=== PATIENT | male | born 1970 | race Caucasian/White ===

== ENCOUNTER 2017-11-29 11:17 | Emergency (ER) | payer MEDICARE, OTHER ==
[2017-11-29 12:03] VITALS: BP 143/84; PULSE 102; RESP 20; TEMP 99.6
[2017-11-29] MEDS ORDERED: KETOROLAC 60 MG/2 ML VIAL IM STA (12:44)
[2017-11-29] MEDS ORDERED: methylPREDNISolone SOD SUCCI 125 MG/2 ML VIAL IM STA (12:44)
[2017-11-29] MEDS ORDERED: ORPHENADRINE 30 MG/ML 2 ML VIAL IM STA (12:44)
--- NOTE | 2017-11-29 12:52 | ED ---
General Adult HPI - General Chief complaint: Back Pain/Injury Stated complaint: Fall Time Seen by Provider: 11/29/17 12:26 Source: patient, RN notes reviewed Mode of arrival: ambulatory Limitations: no limitations - History of Present Illness Initial comments: 47-year-old male presents to the emergency department with a chief complaint of right-sided back pain. He slipped and fell on the steps last night. He states he landed onto his lower back. He states he's having pain to the right side. He states that he has some nausea due to the increased pain. He states he did not hit his head. He states he did not pass out. It was a simple slip and fall. Patient was concerned due to his continued discomfort so he thought that he should be evaluated. He denies any other symptoms at this time or any other injury.Patient denies any recent fever, chills, shortness of breath, chest pain , abdominal pain, nausea vomiting, numbness or tingling, dysuria or hematuria, constipation or diarrhea, headaches or visual changes, or any other current symptoms. - Related Data Home Medications Medication Instructions Recorded Confirmed Donepezil [Aricept] 10 mg PO HS 04/21/14 05/23/15 Propranolol HCl [Inderal Xl] 80 mg PO DAILY 05/22/15 05/23/15 Previous Rx's Medication Instructions Recorded Hydrocodone/Acetaminophen [[place] 1 each PO Q4HR PRN #15 tab 05/22/15 5-325] Aspirin 81 mg PO DAILY #30 chew 05/31/15 Atorvastatin [Lipitor] 10 mg PO HS #7 tab 05/31/15 Budesonide [Pulmicort] 0.5 mg INHALATION RT-BID #1 nebu 05/31/15 Citalopram Hydrobromide [CeleXA] 20 mg PO DAILY #7 tab 05/31/15 Fenofibrate [Lofibra] 160 mg PO HS #7 tab 05/31/15 HYDROcodone/APAP 5-325MG [[place] 1 each PO Q8HR PRN #7 tab 05/31/15 5-325] Lisinopril [Zestril] 10 mg PO DAILY #7 tab 05/31/15 Propranolol LA [Inderal LA] 80 mg PO DAILY #7 cap.sa.24h 05/31/15 Thiamine [Vitamin B-1] 100 mg PO DAILY@1200 #30 tab 05/31/15 clonazePAM [KlonoPIN] 0.5 mg PO BID@0800,1300 #14 tab 05/31/15 clonazePAM [KlonoPIN] 1 mg PO HS #7 tab 05/31/15 hydrOXYzine PAMOATE [Vistaril] 25 mg PO HS #7 cap 05/31/15 Ibuprofen [Motrin] 600 mg PO Q6HR PRN #20 tab 11/29/17 Orphenadrine [Norflex] 100 mg PO Q12H #10 tablet.er 11/29/17 predniSONE 50 mg PO DAILY #5 tab 11/29/17 Allergies Allergy/AdvReac Type Severity Reaction Status Date / Time erythromycin base Allergy dizzy,passed Verified 11/29/17 12:01 [Erythromycin Base] out Penicillins Allergy dizzy,passed Verified 11/29/17 12:01 out Review of Systems ROS Statement: Those systems with pertinent positive or pertinent negative responses have been documented in the HPI. ROS Other: All systems not noted in ROS Statement are negative. Past Medical History Past Medical History: COPD, Dementia, Hyperlipidemia, Memory Impairment, Respiratory Disorder, Sleep Apnea/CPAP/BIPAP, Syncope, Vascular Disorder Additional Past Medical History / Comment(s): chronic migraines, just dx. w/ early alzheimer's, dizzy spells, concussion 05/20/15 from fall, obstructive sleep apnea with CPAP, Wernicke encephalopathy, hyperlipidemia, COPD. History of Any Multi-Drug Resistant Organisms: None Reported Past Surgical History: Tonsillectomy Additional Past Surgical History / Comment(s): Left elbow open reduction internal fixation, hemorrhoidectomy Past Anesthesia/Blood Transfusion Reactions: No Reported Reaction Past Psychological History: Anxiety, Depression Smoking Status: Current every day smoker Past Alcohol Use History: None Reported Past Drug Use History: None Reported - Past Family History Father Additional Family Medical History / Comment(s): Father at age 70 from lung ca, with history of dementia Mother Additional Family Medical History / Comment(s): Mother is age 70 with some health issues that he does not know Brother(s) Additional Family Medical History / Comment(s): Patient has 2 brothers that are healthy. He does not have any sisters. He has 3 children that are healthy. General Exam Limitations: no limitations General appearance: alert, in no apparent distress Neck exam: Present: normal inspection. Absent: tenderness, meningismus, lymphadenopathy Respiratory exam: Present: normal lung sounds bilaterally. Absent: respiratory distress, wheezes, rales, rhonchi, stridor Cardiovascular Exam: Present: regular rate, normal rhythm, normal heart sounds. Absent: systolic murmur, diastolic murmur, rubs, gallop, clicks GI/Abdominal exam: Present: soft, normal bowel sounds. Absent: distended, tenderness, guarding, rebound, rigid Back exam: Present: normal inspection, full ROM, tenderness (To the right paraspinal region), paraspinal tenderness (Right sided), other (Positive straight leg raise on the right). Absent: vertebral tenderness, rash noted Neurological exam: Present: alert, oriented X3 Psychiatric exam: Present: normal affect, normal mood Skin exam: Present: warm, dry, intact, normal color. Absent: rash Course Vital Signs 11/29/17 12:01 Temperature 99.6 F Pulse Rate 102 H Respiratory 20 Rate Blood Pressure 143/84 O2 Sat by Pulse 96 Oximetry Medical Decision Making - Medical Decision Making 47-year-old male presents for slip and fall with right-sided back pain. At this time patient appears to have a lumbar contusion along with a sciatica. At this time we will start the patient on muscle relaxers and anti-inflammatories and steroids for home. We did discuss shelter. We did discuss return parameters we discussed follow-up and all questions. Patient family stated they understood and management this plan. All questions have been answered. They will be discharged. - Radiology Data Radiology results: report reviewed, image reviewed Disposition Clinical Impression: Lumbar strain, Sciatica of right side Disposition: HOME SELF-CARE Condition: Stable Instructions: Acute Low Back Pain (ED), Lower Back Exercises (ED) Additional Instructions: Please use medication as discussed. Please follow up with family doctor if symptoms have not improved over the next two days. Please return to the emergency room if your symptoms increase or worsen or for any other concerns. Prescriptions: Ibuprofen [Motrin] 600 mg PO Q6HR PRN #20 tab PRN Reason: Pain Orphenadrine [Norflex] 100 mg PO Q12H #10 tablet.er predniSONE 50 mg PO DAILY #5 tab Referrals: Francis Turner MD [Primary Care Provider] - 1-2 days Time of Disposition: 13:27
--- NOTE | 2017-11-29 13:04 | XR ---
EXAM TYPE: LUMBAR SPINE X RAY SERIES COMPARISON: NONE HISTORY: Pain TECHNIQUE: 4 views are submitted. FINDINGS: Alignment is anatomic. The pedicles are intact. The transverse processes are intact. There is no s pondylolysis or spondylolisthesis. Hypertrophic change of the spine noted. IMPRESSION: 1. No acute process.
== END 2017-11-29 13:30 | disposition home or self-care (01) ==
LOC: EC 11:17
DX: S39.012A Strain of muscle, fascia and tendon of lower back, initial encounter (principal); M54.31 Sciatica, right side; F02.80 Dementia in other diseases classified elsewhere, unspecified severity, without behavioral disturbance, psychotic disturbance, mood disturbance, and anxiety; G30.9 Alzheimer's disease, unspecified; G47.33 Obstructive sleep apnea (adult) (pediatric); F17.200 Nicotine dependence, unspecified, uncomplicated; Z79.899 Other long term (current) drug therapy; Z88.0 Allergy status to penicillin; Z88.1 Allergy status to other antibiotic agents; W10.9XXA Fall (on) (from) unspecified stairs and steps, initial encounter
CPT/HCPCS: 72100; 99283; 96372 ×3; J2360; J2930; J1885

== ENCOUNTER → 2018-07-15 | Outpatient (CLI) | payer MEDICARE, OTHER ==
--- NOTE | 2018-07-16 02:35 | MR ---
EXAMINATION TYPE: MR brain wo/w con DATE OF EXAM: 07/15/2018 COMPARISON: 12/17/2012 HISTORY: Headaches, blurred vision, diagnosed lymphoma 2 weeks ago TECHNIQUE: Multiplanar, multisequence images of the brain and brainstem is performed without and with IV contras t, utilizing 11.5 mL intravenous Gadavist . FINDINGS: There is some mucosal thickening in the ethmoid and frontal sinuses. There is mild mucosal thickening also maxillary sinuses. Ventricles of normal size. There is no mass effect nor midline shift. There is no sign of intracranial hemorrhage. There is 3 mm focus of increased signal in the white matter le ft anterior temporal lobe. Corpus callosum appears normal. Brainstem appears normal. There is no evid ence of cortical infarct. There is no evidence of cerebral edema. Sella turcica appears normal. There is normal contrast opacification of the venous sinuses. Optic chiasm appears normal. There is no timoteo dence of a sellar mass. There is no evidence of orbital mass. The contrast images show no pathologic enhancement. IMPRESSION: There is mild sinusitis. Otherwise negative MR scan of the brain. Tiny focus of increased signal left temporal lobe white matter of doubtful significance. This is new compared to old exam. S inusitis unchanged.
== END | disposition home or self-care (01) ==
LOC: RADMRIMAIN 20:32
PROVIDERS: ATTEND Psychiatry & Neurology Neurology
DX: H53.8 Other visual disturbances (principal); R51 Headache; Z88.0 Allergy status to penicillin; Z88.1 Allergy status to other antibiotic agents
CPT/HCPCS: 82565; 84520; 70553; 36415; A9585

== ENCOUNTER → 2018-07-31 | Outpatient (CLI) | payer MEDICARE, OTHER ==
[2018-07-31 16:24] LABS: Blood Urea Nitrogen 15 mg/dL (9-20)
--- NOTE | 2018-08-01 09:01 | CT ---
EXAMINATION TYPE: CT ChestAbdPelvis w con DATE OF EXAM: 07/31/2018 COMPARISON: 04/06/2013 HISTORY: lymphoma CT DLP: 2356.6 mGycm CONTRAST: CT scan of the chest, abdomen and pelvis is performed with Oral Contrast and with IV Contrast, patien t injected with 100 mL of Isovue 300. CT Chest: LUNGS: The lungs are clear and free of infiltrate or atelectasis. No pulmonary nodule or mass is det ected. No pleural effusion or CT evidence of interstitial lung disease. MEDIASTINUM: Thoracic aorta is of normal caliber. The heart is not enlarged. No evidence for media stinal mass or adenopathy. HILAR STRUCTURES: No evidence for mass. No hilar adenopathy is appreciated. OTHER: No significant abnormality. CONTRAST CT ABDOMEN AND PELVIS FINDINGS: LIVER/GB: No calcified gallstones. No space occupying hepatic lesion. Biliary tree is of normal ca liber. PANCREAS: No inflammation. No distinct mass. SPLEEN: No splenic enlargement. No lesion seen. ADRENALS: No nodule. No thickening. KIDNEYS/BLADDER: No hydronephrosis. No nephrolithiasis. No disctinct renal mass. BOWEL: Normal appendix. Normal bowel caliber. No inflammation. GENITAL ORGANS: No gross abnormality. LYMPH NODES: No greater than 1cm abdominal or pelvic lymph nodes are appreciated. AORTA: No significant abnormality. OSSEOUS STRUCTURES: No significant abnormality is seen. OTHER: No significant additional abnormality is seen. IMPRESSION: 1. No evidence for adenopathy throughout the chest abdomen or pelvis. 2. Mild hepatic steatosis.
== END ==
LOC: RADCTMAIN 15:40
PROVIDERS: ATTEND Internal Medicine Hematology & Oncology
DX: C85.80 Other specified types of non-Hodgkin lymphoma, unspecified site (principal); K76.0 Fatty (change of) liver, not elsewhere classified
CPT/HCPCS: 82565; 84520; 71260; 74177; 36415; Q9967

== ENCOUNTER → 2019-08-11 | Outpatient (CLI) | payer BC, OTHER ==
[2019-08-11 13:21] LABS: HCT 49.6 % (39.0-53.0); HGB 17.7 gm/dL (13.0-17.5); MCH 31.7 pg (25.0-35.0); MCHC 35.6 g/dL (31.0-37.0); MCV 89.1 fL (80.0-100.0); Mean Platelet Volume 7.3; Platelet Count 247 k/uL (150-450); RBC 5.57 m/uL (4.30-5.90); RDW 12.8 % (11.5-15.5); Reticulocyte % 2.9 % (0.5-2.0); WBC 10.1 k/uL (3.8-10.6)
[2019-08-11 18:33] LABS: % Iron Saturation 30.95 (15.00-50.00)
[2019-08-11 18:42] LABS: T4, Free (Free Thyroxine) 1.1 ng/dL (0.80-1.80)
[2019-08-11 18:44] LABS: Ferritin 145.7 ng/mL (22.0-322.0)
[2019-08-11 19:15] LABS: Folate, Serum 10.9 ng/mL
[2019-08-13 06:45] LABS: Vit B1(Thiamine) 103 ug/L (38-122)
== END | disposition home or self-care (01) ==
LOC: LABWHC1 11:57
PROVIDERS: ATTEND Psychiatry & Neurology Pain Medicine
DX: D64.9 Anemia, unspecified (principal)
CPT/HCPCS: 36415; 82607; 82668; 82728; 82746; 83540; 83550; 84207; 84425; 84439; 84443; 84466; 84481; 84591; 85027; 85045

== ENCOUNTER → 2020-12-02 | Outpatient (CLI) | payer MEDICARE, OTHER ==
[2020-12-02 11:58] LABS: African American GFR (CKD) >90 (>60 ml/min/1.73 sqM); Blood Urea Nitrogen 17 mg/dL (9-20); Non-African American GFR(CKD) 89 (>60 ml/min/1.73 sqM)
--- NOTE | 2020-12-02 13:10 | CT ---
EXAMINATION TYPE: CT ChestAbdPelvis w con DATE OF EXAM: 12/02/2020 COMPARISON: Prior CT July 31, 2018 and older studies HISTORY: Lymphoma, observations for mets. Skin lymphoma per patient. CT DLP: 2656.4 mGycm. Automated Exposure Control for Dose Reduction was Utilized. CONTRAST: CT scan of the thorax, abdomen and pelvis is performed with IV Contrast, patient injected with 100 mL of Isovue M300. FINDINGS: LUNGS: The lungs are grossly clear, there is no concerning parenchymal mass or nodule identified. T here is no pleural effusion or pneumothorax seen. The tracheobronchial tree is patent. MEDIASTINUM: There are no greater than 1 cm hilar or mediastinal lymph nodes. No cardiomegaly or pe ricardial effusion is seen. Mild coronary artery calcification redemonstrated. LIVER/GB: Liver diffusely low dense consistent with diffuse fatty infiltration. No significant change from prior. PANCREAS: No significant abnormality is seen. SPLEEN: No significant abnormality is seen. ADRENALS: No significant abnormality is seen. KIDNEYS: No significant abnormality is seen. BOWEL: Oral contrast reaches level of rectum. No suspicious small or large bowel dilatation. GENITAL ORGANS: No gross abnormality seen. LYMPH NODES: No greater than 1cm abdominal or pelvic lymph nodes are appreciated. OSSEOUS STRUCTURES: Mild facet arthropathy lower lumbar levels. OTHER: No significant additional abnormality is seen. IMPRESSION: No suspicious new or enlarging mass or adenopathy identified to suggest active lymphoma r ecurrence.
== END ==
LOC: RADCTMAIN 10:52
PROVIDERS: ATTEND Internal Medicine Hematology & Oncology
DX: C85.90 Non-Hodgkin lymphoma, unspecified, unspecified site (principal)
CPT/HCPCS: 82565; 84520; 71260; 74177; 36415; Q9967 ×2

== ENCOUNTER 2021-04-25 20:18 | Emergency (ER) | payer MEDICARE, OTHER ==
[2021-04-25 20:44] VITALS: BP 103/60; PULSE 65; RESP 18; TEMP 97.5
[2021-04-25 20:46] LABS: Glucose,Whole Blood 171 mg/dL (75-99)
[2021-04-25] MEDS ORDERED: IBUPROFEN 800 MG TAB PO STA (21:44)
[2021-04-25] MEDS ORDERED: LIDOCAINE 1% INJ 10MG/ML (20 ML MDV) SQ ONE (21:56)
[2021-04-25] MEDS ORDERED: DIPH,PERTUS(ACELL)TETVAC-LF 0.5 ML VIAL IM ONE (21:56)
--- NOTE | 2021-04-25 22:49 | ED ---
Wound/Laceration HPI - General Chief Complaint: Wound/Laceration Stated Complaint: Hand lac,dizzy Time Seen by Provider: 04/25/21 21:18 Source: patient Mode of arrival: ambulatory Limitations: no limitations - History of Present Illness Initial Comments: 50-year-old male presents to emergency Department with a chief complaint of laceration. This laceration occurred about one hour prior to arrival. Patient reports she cut the dorsal aspect of left and on the propeller of a boat. Tetanus is not up-to-date. States there is minimal pain. States he is able to move all his fingers without any difficulties.. Denies any weakness or paresthesias. No blood thinners. - Related Data Home Medications Medication Instructions Recorded Confirmed Donepezil [Aricept] 10 mg PO HS 04/21/14 05/23/15 Propranolol HCl [Inderal Xl] 80 mg PO DAILY 05/22/15 05/23/15 Previous Rx's Medication Instructions Recorded Hydrocodone/Acetaminophen [[place] 1 each PO Q4HR PRN #15 tab 05/22/15 5-325] Aspirin 81 mg PO DAILY #30 chew 05/31/15 Atorvastatin [Lipitor] 10 mg PO HS #7 tab 05/31/15 Budesonide [Pulmicort] 0.5 mg INHALATION RT-BID #1 nebu 05/31/15 Citalopram Hydrobromide [CeleXA] 20 mg PO DAILY #7 tab 05/31/15 Fenofibrate [Lofibra] 160 mg PO HS #7 tab 05/31/15 HYDROcodone/APAP 5-325MG [[place] 1 each PO Q8HR PRN #7 tab 05/31/15 5-325] Propranolol LA [Inderal LA] 80 mg PO DAILY #7 cap.sa.24h 05/31/15 Thiamine [Vitamin B-1] 100 mg PO DAILY@1200 #30 tab 05/31/15 clonazePAM [KlonoPIN] 0.5 mg PO BID@0800,1300 #14 tab 05/31/15 clonazePAM [KlonoPIN] 1 mg PO HS #7 tab 05/31/15 hydrOXYzine pamoate [Vistaril] 25 mg PO HS #7 cap 05/31/15 lisinopriL [Zestril] 10 mg PO DAILY #7 tab 05/31/15 Ibuprofen [Motrin] 600 mg PO Q6HR PRN #20 tab 11/29/17 Orphenadrine [Norflex] 100 mg PO Q12H #10 tablet.er 11/29/17 predniSONE 50 mg PO DAILY #5 tab 11/29/17 Allergies Allergy/AdvReac Type Severity Reaction Status Date / Time erythromycin base Allergy dizzy,passed Verified 04/25/21 20:44 [Erythromycin Base] out Penicillins Allergy dizzy,passed Verified 04/25/21 20:44 out Review of Systems ROS Statement: Those systems with pertinent positive or pertinent negative responses have been documented in the HPI. ROS Other: All systems not noted in ROS Statement are negative. Past Medical History Past Medical History: COPD, Dementia, Hyperlipidemia, Memory Impairment, Respiratory Disorder, Sleep Apnea/CPAP/BIPAP, Syncope, Vascular Disorder Additional Past Medical History / Comment(s): chronic migraines, just dx. w/early alzheimer's, dizzy spells, concussion 05/20/15 from fall, obstructive sleep apnea with CPAP, Wernicke encephalopathy, hyperlipidemia, COPD. History of Any Multi-Drug Resistant Organisms: None Reported Past Surgical History: Tonsillectomy Additional Past Surgical History / Comment(s): Left elbow open reduction internal fixation, hemorrhoidectomy Past Anesthesia/Blood Transfusion Reactions: No Reported Reaction Past Psychological History: Anxiety, Depression Smoking Status: Current every day smoker Past Alcohol Use History: None Reported Past Drug Use History: None Reported - Past Family History Father Additional Family Medical History / Comment(s): Father at age 70 from lung ca, with history of dementia Mother Additional Family Medical History / Comment(s): Mother is age 70 with some health issues that he does not know Brother(s) Additional Family Medical History / Comment(s): Patient has 2 brothers that are healthy. He does not have any sisters. He has 3 children that are healthy. General Exam Limitations: no limitations General appearance: alert, in no apparent distress, obese Head exam: Present: atraumatic, normocephalic, normal inspection Eye exam: Present: normal appearance, PERRL, EOMI Pupils: Present: normal accommodation ENT exam: Present: normal exam, normal oropharynx, mucous membranes moist Neck exam: Present: normal inspection, full ROM. Absent: tenderness Respiratory exam: Present: normal lung sounds bilaterally. Absent: respiratory distress Cardiovascular Exam: Present: regular rate, normal rhythm, normal heart sounds. Absent: systolic murmur Extremities exam: Present: full ROM (Able to move fingers and hand without any difficulties.), normal capillary refill. Absent: normal inspection (4 similar laceration on dorsal aspect of her left hand), tenderness, pedal edema, joint swelling Back exam: Present: normal inspection, full ROM Neurological exam: Present: alert, oriented X3 Psychiatric exam: Present: normal affect, normal mood Skin exam: Present: warm, dry, intact, normal color Course Vital Signs 04/25/21 20:40 Temperature 97.5 F L Pulse Rate 65 Respiratory 18 Rate Blood Pressure 103/60 O2 Sat by Pulse 95 Oximetry Procedures - Laceration Laceration #1 Consent Obtained: verbal consent Indication: laceration Site: hand Size (cm): 4 Description: linear, clean Depth: simple, single layer Sedation/Analgesia: none Anesthetic Used: lidocaine 1% Anesthesia Technique: local infiltration Amount (mls): 3 Pre-repair: irrigated extensively, deep structures intact Type of Sutures: nylon Size of Sutures: 4-0 Number of Sutures: 5 Technique: simple, interrupted Patient Tolerated Procedure: well, no complications Medical Decision Making - Medical Decision Making 50-year-old female presents emergency Department with chief complaint of laceration. Laceration was thoroughly irrigated and repaired with 5 sutures. Patient's daughter procedure well. He is neurovascularly intact. Tetanus was updated. Return parameters discussed the patient was also having agreeable. Case discussed with physician. - Lab Data Lab Results 04/25/21 Range/Units 20:45 POC Glucose (mg/dL) 171 H (75-99) mg/dL POC Glu Tobacco Sweeper ID Thelma Teague Disposition Clinical Impression: Laceration Disposition: HOME SELF-CARE Condition: Stable Instructions (If sedation given, give patient instructions): Care For Your Stitches (DC), Laceration (DC) Additional Instructions: Please return to the emergency room in 8-10 days to have sutures removed. Please watch for any signs of infection which may include increased pain, swelling, redness, fever or chills. Please return to emergency room for any signs of infection do occur. Please use clean soap and water over the area to prevent scabbing over your stitches. Please leave wound covered for the first 24-48 hours and then leave wound open to air. Please return to the emergency room for any other concerns. Is patient prescribed a controlled substance at d/c from ED?: No Referrals: Francis Turner MD [Primary Care Provider] - 1-2 days Time of Disposition: 22:50
== END 2021-04-25 23:08 | disposition home or self-care (01) ==
LOC: EC 20:18
DX: S61.412A Laceration without foreign body of left hand, initial encounter (principal); Z23 Encounter for immunization; G30.9 Alzheimer's disease, unspecified; J44.9 Chronic obstructive pulmonary disease, unspecified; E78.5 Hyperlipidemia, unspecified; F02.80 Dementia in other diseases classified elsewhere, unspecified severity, without behavioral disturbance, psychotic disturbance, mood disturbance, and anxiety; G47.33 Obstructive sleep apnea (adult) (pediatric); G43.909 Migraine, unspecified, not intractable, without status migrainosus; F32.9 Major depressive disorder, single episode, unspecified; F41.9 Anxiety disorder, unspecified; F17.200 Nicotine dependence, unspecified, uncomplicated; Z79.51 Long term (current) use of inhaled steroids; Z79.1 Long term (current) use of non-steroidal anti-inflammatories (NSAID); Z79.52 Long term (current) use of systemic steroids; Z79.82 Long term (current) use of aspirin; Z88.1 Allergy status to other antibiotic agents; Z88.0 Allergy status to penicillin; W26.8XXA Contact with other sharp object(s), not elsewhere classified, initial encounter
CPT/HCPCS: 36415; 90715; 99283; 90471; 12002; J2001

== ENCOUNTER 2021-07-04 13:53 | Observation (INO) | payer MEDICARE ==
--- NOTE | 2021-07-04 15:18 | XR ---
EXAMINATION TYPE: XR chest 2V DATE OF EXAM: 07/04/2021 COMPARISON: Chest x-ray May 22, 2015. Chest CT December 02, 2020 HISTORY: Shortness of breath and cough. History of lymphoma. TECHNIQUE: Frontal and lateral views of the chest are obtained. FINDINGS: Improved inspiration on current study. There is no suspicious focal air space opacity, pleu ral effusion, or pneumothorax seen. The cardiac silhouette size is stable and within normal limits. The osseous structures are intact. IMPRESSION: No acute cardiopulmonary process.
[2021-07-04] MEDS ORDERED: ALBUTEROL NEBULIZED 2.5 MG/3 ML INHALATION STA (15:27)
[2021-07-04] MEDS ORDERED: IPRATROPIUM 0.5 MG/2.5 ML NEBU INHALATION STA (15:27)
[2021-07-04] MEDS ORDERED: methylPREDNISolone SOD SUCCI 125 MG/2 ML VIAL IV STA (15:27)
--- NOTE | 2021-07-04 15:34 | ED ---
General Adult HPI - General Chief complaint: Shortness of Breath Stated complaint: SOB Time Seen by Provider: 07/04/21 14:25 Source: patient, RN notes reviewed, old records reviewed Mode of arrival: ambulatory Limitations: no limitations - History of Present Illness Initial comments: This is a 50-year-old male who presents emergency Department complaining of difficulty breathing 3 days. Patient denies any fever chills or cough. Patient denies any chest pain. Patient states he is a smoker and has been smoking for well over 30 years. Patient states she had coded vaccine. Patient denies any loss of taste or smell. Patient denies any diarrhea. Patient denies any abdominal pain. - Related Data Home Medications Medication Instructions Recorded Confirmed Albuterol Inhaler [Ventolin Hfa 2 puff INHALATION RT-QID PRN 07/04/21 07/04/21 Inhaler] Citalopram Hydrobromide [CeleXA] 40 mg PO DAILY 07/04/21 07/04/21 Glimepiride [Amaryl] 2 mg PO AC-BID 07/04/21 07/04/21 Pioglitazone [Actos] 30 mg PO DAILY 07/04/21 07/04/21 Propranolol HCl 80 mg PO BID 07/04/21 07/04/21 Rivastigmine Tartrate 1.5 mg PO DAILY 07/04/21 07/04/21 [Rivastigmine] Rivastigmine Tartrate 3 mg PO HS 07/04/21 07/04/21 [Rivastigmine] Verapamil HCl [Verapamil ER] 120 mg PO HS 07/04/21 07/04/21 lisinopriL [Zestril] 2.5 mg PO DAILY 07/04/21 07/04/21 metFORMIN HCL 500 mg PO BID 07/04/21 07/04/21 sitaGLIPtin [Januvia] 100 mg PO DAILY 07/04/21 07/04/21 traZODone HCL 150 mg PO HS 07/04/21 07/04/21 Previous Rx's Medication Instructions Recorded Aspirin 81 mg PO DAILY #30 chew 05/31/15 Atorvastatin [Lipitor] 10 mg PO HS #7 tab 05/31/15 Allergies Allergy/AdvReac Type Severity Reaction Status Date / Time erythromycin base Allergy dizzy,passed Verified 07/04/21 16:24 [Erythromycin Base] out Penicillins Allergy dizzy,passed Verified 07/04/21 16:24 out Review of Systems ROS Statement: Those systems with pertinent positive or pertinent negative responses have been documented in the HPI. ROS Other: All systems not noted in ROS Statement are negative. Past Medical History Past Medical History: COPD, Dementia, Hyperlipidemia, Memory Impairment, Respiratory Disorder, Sleep Apnea/CPAP/BIPAP, Syncope, Vascular Disorder Additional Past Medical History / Comment(s): chronic migraines, just dx. w/early alzheimer's, dizzy spells, concussion 05/20/15 from fall, obstructive sleep apnea with CPAP, Wernicke encephalopathy, hyperlipidemia, COPD. History of Any Multi-Drug Resistant Organisms: None Reported Past Surgical History: Tonsillectomy Additional Past Surgical History / Comment(s): Left elbow open reduction internal fixation, hemorrhoidectomy Past Anesthesia/Blood Transfusion Reactions: No Reported Reaction Past Psychological History: Anxiety, Depression Smoking Status: Current every day smoker Past Alcohol Use History: None Reported Past Drug Use History: None Reported - Past Family History Father Additional Family Medical History / Comment(s): Father at age 70 from lung ca, with history of dementia Mother Additional Family Medical History / Comment(s): Mother is age 70 with some health issues that he does not know Brother(s) Additional Family Medical History / Comment(s): Patient has 2 brothers that are healthy. He does not have any sisters. He has 3 children that are healthy. General Exam - General Exam Comments Initial Comments: GENERAL: Patient is well-developed and well-nourished. Patient is nontoxic and well- hydrated and is in mild distress. ENT: Neck is soft and supple. No significant lymphadenopathy is noted. Oropharynx is clear. Moist mucous membranes. Neck has full range of motion without eliciting any pain. EYES: The sclera were anicteric and conjunctiva were pink and moist. Extraocular movements were intact and pupils were equal round and reactive to light. Eyelids were unremarkable. PULMONARY: Patient has diffuse wheezing. CARDIOVASCULAR: There is a regular rate and rhythm without any murmurs gallops or rubs. ABDOMEN: Soft and nontender with normal bowel sounds. SKIN: Skin is clear with no lesions or rashes and otherwise unremarkable. NEUROLOGIC: Patient is alert and oriented x3. Cranial nerves II through XII are grossly intact. Motor and sensory are also intact. Normal speech, volume and content. Symmetrical smile. MUSCULOSKELETAL: Normal extremities with adequate strength and full range of motion. LYMPHATICS: No significant lymphadenopathy is noted PSYCHIATRIC: Normal psychiatric evaluation. Limitations: no limitations Course Vital Signs 07/04/21 07/04/21 07/04/21 14:23 16:03 16:13 Temperature 97.6 F Pulse Rate 84 76 79 Respiratory 20 18 18 Rate Blood Pressure 128/85 O2 Sat by Pulse 94 L Oximetry Medical Decision Making - Medical Decision Making EKG shows normal sinus rhythm at 82 bpm NH interval is on a 36 dresses 94 QT interval 32 QTC is 446 per patient's EKG shows no ST segment elevation or depression. After patient received multiple breathing treatments and steroids. I will back in and reexamined the patient he continued to wheeze diffusely. I spoke with Dr. George he agreed to admit the patient admitted the patient wrote admitting orders I started the patient on antibiotics. - Lab Data Result diagrams: 07/04/21 15:33 07/04/21 15:33 Lab Results 07/04/21 07/04/21 07/04/21 Range/Units 14:38 15:33 15:33 WBC 8.8 (3.8-10.6) k/uL RBC 4.98 (4.30-5.90) m/uL Hgb 15.9 (13.0-17.5) gm/dL Hct 45.8 (39.0-53.0) % MCV 91.8 (80.0-100.0) fL MCH 32.0 (25.0-35.0) pg MCHC 34.8 (31.0-37.0) g/dL RDW 12.7 (11.5-15.5) % Plt Count 232 (150-450) k/uL MPV 8.5 Neutrophils % 58 % Lymphocytes % 29 % Monocytes % 7 % Eosinophils % 4 % Basophils % 1 % Neutrophils # 5.1 (1.3-7.7) k/uL Lymphocytes # 2.6 (1.0-4.8) k/uL Monocytes # 0.6 (0-1.0) k/uL Eosinophils # 0.3 (0-0.7) k/uL Basophils # 0.1 (0-0.2) k/uL Sodium 137 (137-145) mmol/L Potassium 4.7 (3.5-5.1) mmol/L Chloride 102 (98-107) mmol/L Carbon Dioxide 23 (22-30) mmol/L Anion Gap 12 mmol/L BUN 22 H (9-20) mg/dL Creatinine 1.09 (0.66-1.25) mg/dL Est GFR (CKD-EPI)AfAm 90 (>60 ml/min/1.73 sqM) Est GFR (CKD-EPI)NonAf 78 (>60 ml/min/1.73 sqM) Glucose 143 H (74-99) mg/dL Plasma Lactic Acid Dhaval (0.7-2.0) mmol/L Calcium 10.5 H (8.4-10.2) mg/dL Total Bilirubin 0.6 (0.2-1.3) mg/dL AST 31 (17-59) U/L ALT 31 (4-49) U/L Alkaline Phosphatase 84 (38-126) U/L Troponin I (0.000-0.034) ng/mL Total Protein 7.4 (6.3-8.2) g/dL Albumin 4.6 (3.5-5.0) g/dL Influenza Type A (PCR) Not Detected (Not Detectd) Influenza Type B (PCR) Not Detected (Not Detectd) RSV (PCR) Not Detected (Not Detectd) SARS-CoV-2 (PCR) Not Detected (Not Detectd) 07/04/21 07/04/21 Range/Units 15:33 15:33 WBC (3.8-10.6) k/uL RBC (4.30-5.90) m/uL Hgb (13.0-17.5) gm/dL Hct (39.0-53.0) % MCV (80.0-100.0) fL MCH (25.0-35.0) pg MCHC (31.0-37.0) g/dL RDW (11.5-15.5) % Plt Count (150-450) k/uL MPV Neutrophils % % Lymphocytes % % Monocytes % % Eosinophils % % Basophils % % Neutrophils # (1.3-7.7) k/uL Lymphocytes # (1.0-4.8) k/uL Monocytes # (0-1.0) k/uL Eosinophils # (0-0.7) k/uL Basophils # (0-0.2) k/uL Sodium (137-145) mmol/L Potassium (3.5-5.1) mmol/L Chloride (98-107) mmol/L Carbon Dioxide (22-30) mmol/L Anion Gap mmol/L BUN (9-20) mg/dL Creatinine (0.66-1.25) mg/dL Est GFR (CKD-EPI)AfAm (>60 ml/min/1.73 sqM) Est GFR (CKD-EPI)NonAf (>60 ml/min/1.73 sqM) Glucose (74-99) mg/dL Plasma Lactic Acid Dhaval 1.5 (0.7-2.0) mmol/L Calcium (8.4-10.2) mg/dL Total Bilirubin (0.2-1.3) mg/dL AST (17-59) U/L ALT (4-49) U/L Alkaline Phosphatase (38-126) U/L Troponin I <0.012 (0.000-0.034) ng/mL Total Protein (6.3-8.2) g/dL Albumin (3.5-5.0) g/dL Influenza Type A (PCR) (Not Detectd) Influenza Type B (PCR) (Not Detectd) RSV (PCR) (Not Detectd) SARS-CoV-2 (PCR) (Not Detectd) Disposition Clinical Impression: COPD with acute exacerbation Disposition: ADMITTED IP TO THIS [facility] Referrals: Francis Turner MD [Primary Care Provider] - 1-2 days Time of Disposition: 16:47
[2021-07-04 15:41] LABS: Basophils # (A) 0.1 k/uL (0-0.2); Basophils % (A) 1 %; Eosinophils # (A) 0.3 k/uL (0-0.7); Eosinophils % (A) 4 %; HCT 45.8 % (39.0-53.0); HGB 15.9 gm/dL (13.0-17.5); Lymphocytes # (A) 2.6 k/uL (1.0-4.8); Lymphocytes % (A) 29 %; MCHC 34.8 g/dL (31.0-37.0); MCV 91.8 fL (80.0-100.0); Mean Platelet Volume 8.5; Monocytes # (A) 0.6 k/uL (0-1.0); Monocytes % (A) 7 %; Neutrophils # (A) 5.1 k/uL (1.3-7.7); Neutrophils % (A) 58 %; Platelet Count 232 k/uL (150-450); RBC 4.98 m/uL (4.30-5.90); RDW 12.7 % (11.5-15.5); WBC 8.8 k/uL (3.8-10.6)
[2021-07-04 15:52] LABS: Albumin 4.6 g/dL (3.5-5.0); Calcium 10.5 mg/dL (8.4-10.2); Potassium 4.7 mmol/L (3.5-5.1); Total Bilirubin 0.6 mg/dL (0.2-1.3); Total Protein 7.4 g/dL (6.3-8.2)
[2021-07-04] MEDS ORDERED: cefTRIAXone IN SWFI 1,000 MG/10 ML SYRINGE IVP STA (16:29)
[2021-07-04] MEDS: IPRATROPIUM-ALBUTEROL 3 ML NEB INHALATION SCH (19:59)
[2021-07-04 20:07] LABS: Glucose,Whole Blood 301 mg/dL (75-99)
[2021-07-04] MEDS: ATORVASTATIN 10 MG TAB PO SCH (20:27)
[2021-07-04] MEDS: CEFDINIR 300 MG CAP PO SCH (20:27)
[2021-07-04] MEDS: metFORMIN 500 MG TAB PO SCH (20:54)
[2021-07-04] MEDS: INSULIN ASPART (NovoLOG) 100 UNIT/ML VIAL SQ SCH (20:54)
[2021-07-04] MEDS: PROPRANOLOL 40 MG TAB PO SCH (20:55)
[2021-07-04] MEDS: VERAPAMIL SR 120 MG TABLET.ER PO SCH (20:55)
[2021-07-04] MEDS: traZODone HCL 50 MG TAB PO SCH (20:55)
[2021-07-04] MEDS: methylPREDNISolone SOD SUCCI 125 MG/2 ML VIAL IV SCH (23:37)
[2021-07-05] MEDS: ACETAMINOPHEN TAB 325 MG TAB PO PRN (04:21)
[2021-07-05] MEDS: methylPREDNISolone SOD SUCCI 125 MG/2 ML VIAL IV SCH ×2 (04:22→12:59)
[2021-07-05] MEDS: IPRATROPIUM-ALBUTEROL 3 ML NEB INHALATION SCH ×4 (08:00→21:43)
[2021-07-05 08:11] LABS: Glucose,Whole Blood 286 mg/dL (75-99)
[2021-07-05] MEDS: PIOGLITAZONE 30 MG TAB PO SCH (08:35)
[2021-07-05] MEDS: LINAGLIPTIN 5 MG TABLET PO SCH (08:36)
[2021-07-05] MEDS: GLIMEPIRIDE 2 MG TAB PO SCH ×2 (08:36→18:20)
[2021-07-05] MEDS: PANTOPRAZOLE 40 MG TABLET PO SCH (08:36)
[2021-07-05] MEDS: CITALOPRAM HYDROBROMIDE 20 MG TAB PO SCH (08:36)
[2021-07-05] MEDS: ASPIRIN 81 MG PO SCH (08:36)
[2021-07-05] MEDS: DONEPEZIL 5 MG TAB PO SCH (08:36)
[2021-07-05] MEDS: PROPRANOLOL 40 MG TAB PO SCH ×2 (08:36→20:57)
[2021-07-05] MEDS: CEFDINIR 300 MG CAP PO SCH ×2 (08:37→21:38)
[2021-07-05] MEDS: metFORMIN 500 MG TAB PO SCH ×2 (08:37→18:20)
[2021-07-05] MEDS: INSULIN ASPART (NovoLOG) 100 UNIT/ML VIAL SQ SCH ×5 (08:37→20:56)
[2021-07-05 12:14] LABS: Glucose,Whole Blood 364 mg/dL (75-99)
--- NOTE | 2021-07-05 12:21 | P.HPIM ---
History of Present Illness H&P Date: 07/04/21 Chief Complaint: Acute heart failure, COPD exacerbation, severe bronchitis HISTORY OF PRESENT ILLNESS 50-year-old male one of Dr. Srinivasan's Patient with past medical history of COPD, diabetes, vascular dementia, history of obstructive sleep apnea with? Of lymphoma who is known to have history of Warnicke encephalopathy in the past who developed to have worsening shortness of breath and dyspnea with minimum exertion become much worse with inspiratory expiratory wheezes not been able to ambulate or move he become severely hypoxic ended up coming to the emergency department at [facility] where was seen and evaluated his pulse ox was in the 80s at the time was having quite BuSpar to distress was giving 3 round of updraft treatment which had helped some but continued to be hypoxic continue to have mild tachycardia. Patient was started on IV steroid, was giving 1 dose of IV antibiotics was admitted to the hospital with COPD exacerbation and worsening respiratory failure. REVIEW OF SYSTEMS Constitutional: No fever, no chills, no night sweats. No weight change. No weakness, fatigue or lethargy. No daytime sleepiness. EENT: No headache. No blurred vision or double vision, no loss of vision. No loss of Hearing, no ringing in the ears, no dizziness. Quite bit congestion and sore throat. Lungs: Significant dyspnea and shortness of breath with worsening cough and sputum production. Cardiovascular: No chest pain, no lower extremity edema. No palpitations. Positive PND orthopnea with mild lightheadedness with no syncope or presyncope like symptoms. Abdominal: No abdominal pain. No nausea, vomiting. No diarrhea. No constipation. No bloody or tarry stools.. No loss of appetite. Genitourinary: Mild BPH symptom with increased frequency and urgency. Musculoskeletal: No myalgias. No muscle weakness, no gait dysfunction, no frequent falls. No back pain. No neck pain. Integumentary: No wounds, no lesions. No rash or pruritus. No unusual bruising. No change in hair or nails. Neurologic: Significant memory loss with no hepatoma no syncope this point. Psychiatric: No depression. No anxiety. No mood swings. Endocrine: No abnormal blood sugars. No weight change. No excessive sweating or thirst. No cold intolerance. SOCIAL HISTORY Patient smoked one pack a day for 30 years, used to drink alcohol heavily has not long time, he still smoke weed and weekly basis. Patient uses CPAP at home, use oxygen and updraft. FAMILY HISTORY His father dying at age 60 from colon cancer, mother is living at her 72 with well and healthy. Patient has one brother who has COPD one sister is living and well 2 children with no major medical problem. PHYSICAL EXAMINATION Gen: This is a 51-year-old obese gentleman laying in bed had mild respiratory distress with mild dyspnea. HEENT: Head is atraumatic, normocephalic. Pupils equal, round. Sclerae is anicteric. NECK: Supple. No JVD. No lymphadenopathy. No thyromegaly. LUNGS: Decreased breath sounds bilaterally with fine rhonchi positive mild crackles positive mild expiratory wheezes. Slight crackles in the base bilaterally especially the right side. HEART: Regular rate and rhythm. No murmur. ABDOMEN: Soft. Bowel sounds are present. No masses. No tenderness. EXTREMITIES: No pedal edema. No calf tenderness. NEUROLOGICAL: He is alert awake oriented with slight confusion cranial nerves II 12 are intact positive generalized weakness and focal deficit. ASSESSMENT AND PLAN 1. Acute respiratory failure: Secondary to COPD exacerbation along with severe bronchitis, patient will be admitted, continue O2, continue steroid and updraft treatment. Pulmonary consultation be done. 2. COPD excessive patient: Patient will continue DuoNeb along with Pulmicort continue steroid IV along with O2 3. Severe bronchitis: Patient was giving 1 g of Rocephin and switched to Omnicef Will add azithromycin. 4. Type 2 diabetes: Remain on Tradjenta, Actos, Lantus and NovoLog still on Amaryl 2 mg twice a day we will add Accu-Chek with sliding scales coverage. 5. Hypertension: Remain on lisinopril 2.5 mg a day along with propranolol 80 mg twice a day and verapamil SR 120 mg daily. 6. Hyperlipidemia: Continue patient on Lipitor 10 mg a day. 7. Warnicke encephalopathy and dementia: Remain on Aricept 5 mg a day. 8. Chronic depression: Continue patient on trazodone 150 mg at bedtime along with citalopram 40 mg daily. 9. GI prophylaxis: Add Protonix 40 mg daily. 10. DVT prophylaxis: Will be on subcu heparin for now. 11. COVID-19 testing was negative Patient will be admitted to the hospital for a minimum of 2 night stay. Past Medical History Past Medical History: COPD, Dementia, Diabetes Mellitus, Hyperlipidemia, Hypertension, Memory Impairment, Respiratory Disorder, Sleep Apnea/CPAP/BIPAP, Syncope, Vascular Disorder Additional Past Medical History / Comment(s): chronic migraines, just dx. w/early alzheimer's, dizzy spells, concussion 05/20/15 from fall, obstructive sleep apnea with CPAP, Wernicke encephalopathy, hyperlipidemia, COPD. History of Any Multi-Drug Resistant Organisms: None Reported Past Surgical History: Tonsillectomy Additional Past Surgical History / Comment(s): Left elbow open reduction internal fixation, hemorrhoidectomy Past Anesthesia/Blood Transfusion Reactions: No Reported Reaction Past Psychological History: Anxiety, Depression Smoking Status: Current every day smoker Past Alcohol Use History: None Reported Additional Past Alcohol Use History / Comment(s): Patient states he smokes one pack of cigarettes per day for 20 years. He drinks a 12 pack of beer per day for the past 20 years. He uses marijuana on occasional basis. He denies any street drug use. He has lost his job as a [employer] due to balance issues. He is currently living with his . Past Drug Use History: None Reported - Past Family History Father Additional Family Medical History / Comment(s): Father at age 70 from lung ca, with history of dementia Mother Additional Family Medical History / Comment(s): Mother is age 70 with some health issues that he does not know Brother(s) Additional Family Medical History / Comment(s): Patient has 2 brothers that are healthy. He does not have any sisters. He has 3 children that are healthy. Medications and Allergies Home Medications Medication Instructions Recorded Confirmed Type Aspirin 81 mg PO DAILY #30 chew 05/31/15 07/04/21 Rx Atorvastatin [Lipitor] 10 mg PO HS #7 tab 05/31/15 07/04/21 Rx Albuterol Inhaler [Ventolin Hfa 2 puff INHALATION RT-QID PRN 07/04/21 07/04/21 History Inhaler] Citalopram Hydrobromide [CeleXA] 40 mg PO DAILY 07/04/21 07/04/21 History Glimepiride [Amaryl] 2 mg PO AC-BID 07/04/21 07/04/21 History Pioglitazone [Actos] 30 mg PO DAILY 07/04/21 07/04/21 History Propranolol HCl 80 mg PO BID 07/04/21 07/04/21 History Rivastigmine Tartrate 1.5 mg PO DAILY 07/04/21 07/04/21 History [Rivastigmine] Rivastigmine Tartrate 3 mg PO HS 07/04/21 07/04/21 History [Rivastigmine] Verapamil HCl [Verapamil ER] 120 mg PO HS 07/04/21 07/04/21 History lisinopriL [Zestril] 2.5 mg PO DAILY 07/04/21 07/04/21 History metFORMIN HCL 500 mg PO BID 07/04/21 07/04/21 History sitaGLIPtin [Januvia] 100 mg PO DAILY 07/04/21 07/04/21 History traZODone HCL 150 mg PO HS 07/04/21 07/04/21 History Allergies Allergy/AdvReac Type Severity Reaction Status Date / Time erythromycin base Allergy dizzy,passed Verified 07/04/21 16:24 [Erythromycin Base] out Penicillins Allergy dizzy,passed Verified 07/04/21 16:24 out Physical Exam Vitals: Vital Signs Temp Pulse Pulse Resp BP BP Pulse Ox 07/05/21 08:13 88 16 07/05/21 08:00 84 16 96 07/05/21 07:00 97.6 F 66 17 115/76 93 L 07/05/21 01:56 98.1 F 77 18 122/74 95 07/04/21 20:11 80 07/04/21 20:01 76 07/04/21 20:00 98.1 F 80 18 125/79 95 07/04/21 17:45 97.4 F L 74 18 125/84 96 07/04/21 17:16 73 19 120/81 98 07/04/21 16:13 79 18 07/04/21 16:03 76 18 07/04/21 14:23 97.6 F 84 20 128/85 94 L Intake and Output 07/04/21 07/05/21 07/05/21 22:59 06:59 14:59 Other: Voiding Method Toilet Toilet # Voids 1 2 Weight 127.006 kg Results CBC & Chem 7: 07/04/21 15:33 07/04/21 15:33 Labs: Abnormal Lab Results - Last 24 Hours (Table) 07/04/21 07/04/21 07/05/21 Range/Units 15:33 20:05 08:10 BUN 22 H (9-20) mg/dL Glucose 143 H (74-99) mg/dL POC Glucose (mg/dL) 301 H 286 H (75-99) mg/dL Calcium 10.5 H (8.4-10.2) mg/dL Thrombosis Risk Factor Assmnt - Choose All That Apply Any of the Below Risk Factors Present?: Yes Each Factor Represents 1 point: Age 41-60 years Other Risk Factors: No Other congenital or acquired thrombophilia - If yes, enter type in comment: No Thrombosis Risk Factor Assessment Total Risk Factor Score: 1 Thrombosis Risk Factor Assessment Level: Low Risk
--- NOTE | 2021-07-05 12:24 | P.CNPUL ---
History of Present Illness Consult date: 07/05/21 Requesting physician: Bryant George Reason for consult: dyspnea, cough, COPD Chief complaint: Shortness of breath, COPD exacerbation. History of present illness: Pulmonary/critical care consultation dated 07/05/2021. 50-year-old male, who sees Dr. Turner, as a primary. The patient [facility] on July [facility] complaining of difficulty breathing for about 3 days. In addition, the patient had cough, chest tightness, wheezing, and occasional phlegm production. The patient smoked 35 years at 1 pack a day. He recently quit. He is never seen a lung doctor in the past. He does see my partner for his obstructive sleep apnea syndrome and he does use CPAP for that. Currently, he is on no supplemental oxygen, and not receiving any IV fluids. He was told in the emergency room that he had a COPD exacerbation. Again, he's never been seen in our office, and never had pulmonary function testing. He apparently has a history of dementia, hyperlipidemia, sleep apnea, syncope, chronic migraines, wearing these encephalopathy, and hyperlipidemia. Family history is positive for dementia, lung cancer, and hypertension. Lab work includes a white count 8.8, hemoglobin 15.9, hematocrit 45.8, and platelet count 232,000. Sodium 137, potassium 4.7, chlorides 102, CO2 23, anion gap 12, BUN 22, and creatinine 1.09. Calcium is 10.5. Chest x-ray was normal. Review of Systems REVIEW OF SYSTEMS: CONSTITUTIONAL: [Negative.] NEUROLOGIC: [ Negative.] HEENT: [ Negative.] CARDIAC: [Negative.] PULMONARY: Shortness of breath, cough, chest tightness, wheezing, and occasional phlegm production. GI: [Negative.] : [Negative.] RHEUMATOLOGIC: [ Negative.] IMMUNOLOGIC: [ Negative.] ENDOCRINE: [Negative. ] DERMATOLOGIC: [Negative.] Past Medical History Past Medical History: COPD, Dementia, Diabetes Mellitus, Hyperlipidemia, Hypertension, Memory Impairment, Respiratory Disorder, Sleep Apnea/CPAP/BIPAP, Syncope, Vascular Disorder Additional Past Medical History / Comment(s): chronic migraines, just dx. w/early alzheimer's, dizzy spells, concussion 05/20/15 from fall, obstructive sleep apnea with CPAP, Wernicke encephalopathy, hyperlipidemia, COPD. History of Any Multi-Drug Resistant Organisms: None Reported Past Surgical History: Tonsillectomy Additional Past Surgical History / Comment(s): Left elbow open reduction internal fixation, hemorrhoidectomy Past Anesthesia/Blood Transfusion Reactions: No Reported Reaction Past Psychological History: Anxiety, Depression Smoking Status: Current every day smoker Past Alcohol Use History: None Reported Additional Past Alcohol Use History / Comment(s): Patient states he smokes one pack of cigarettes per day for 20 years. He drinks a 12 pack of beer per day for the past 20 years. He uses marijuana on occasional basis. He denies any street drug use. He has lost his job as a [employer] due to balance issues. He is currently living with his . Past Drug Use History: None Reported - Past Family History Father Additional Family Medical History / Comment(s): Father at age 70 from lung ca, with history of dementia Mother Additional Family Medical History / Comment(s): Mother is age 70 with some health issues that he does not know Brother(s) Additional Family Medical History / Comment(s): Patient has 2 brothers that are healthy. He does not have any sisters. He has 3 children that are healthy. Medications and Allergies Home Medications Medication Instructions Recorded Confirmed Type Aspirin 81 mg PO DAILY #30 chew 05/31/15 07/04/21 Rx Atorvastatin [Lipitor] 10 mg PO HS #7 tab 05/31/15 07/04/21 Rx Albuterol Inhaler [Ventolin Hfa 2 puff INHALATION RT-QID PRN 07/04/21 07/04/21 History Inhaler] Citalopram Hydrobromide [CeleXA] 40 mg PO DAILY 07/04/21 07/04/21 History Glimepiride [Amaryl] 2 mg PO AC-BID 07/04/21 07/04/21 History Pioglitazone [Actos] 30 mg PO DAILY 07/04/21 07/04/21 History Propranolol HCl 80 mg PO BID 07/04/21 07/04/21 History Rivastigmine Tartrate 1.5 mg PO DAILY 07/04/21 07/04/21 History [Rivastigmine] Rivastigmine Tartrate 3 mg PO HS 07/04/21 07/04/21 History [Rivastigmine] Verapamil HCl [Verapamil ER] 120 mg PO HS 07/04/21 07/04/21 History lisinopriL [Zestril] 2.5 mg PO DAILY 07/04/21 07/04/21 History metFORMIN HCL 500 mg PO BID 07/04/21 07/04/21 History sitaGLIPtin [Januvia] 100 mg PO DAILY 07/04/21 07/04/21 History traZODone HCL 150 mg PO HS 07/04/21 07/04/21 History Allergies Allergy/AdvReac Type Severity Reaction Status Date / Time erythromycin base Allergy dizzy,passed Verified 07/04/21 16:24 [Erythromycin Base] out Penicillins Allergy dizzy,passed Verified 07/04/21 16:24 out Physical Exam Osteopathic Statement: *. No significant issues noted on an osteopathic structural exam other than those noted in the History and Physical/Consult. Vitals: Vital Signs Temp Pulse Pulse Resp BP BP Pulse Ox 07/05/21 08:13 88 16 07/05/21 08:00 84 16 96 07/05/21 07:00 97.6 F 66 17 115/76 93 L 07/05/21 01:56 98.1 F 77 18 122/74 95 07/04/21 20:11 80 07/04/21 20:01 76 07/04/21 20:00 98.1 F 80 18 125/79 95 07/04/21 17:45 97.4 F L 74 18 125/84 96 07/04/21 17:16 73 19 120/81 98 07/04/21 16:13 79 18 07/04/21 16:03 76 18 07/04/21 14:23 97.6 F 84 20 128/85 94 L Intake and Output 07/04/21 07/05/21 07/05/21 22:59 06:59 14:59 Other: Voiding Method Toilet Toilet # Voids 1 2 Weight 127.006 kg No acute distress, oriented 3. No conversational dyspnea, use of accessory muscles, or audible wheezing. Currently, the patient is on room air. HEENT examination is grossly unremarkable. Neck supple. Full range of motion. No adenopathy thyromegaly or neck vein distention. Cardiovascular examination reveals regular rhythm rate. S1-S2 normal. No S3 or S4. No discernible murmur noted. Heart sounds are distant. Heart rate 88 bpm. Lungs reveal scattered moderate expiratory rhonchi and wheezes. No crackles. Breath sounds equal bilaterally. Slight prolongation on forced maneuver. Abdomen soft bowel sounds are heard. No masses or tenderness. Extremities are intact. No cyanosis clubbing or edema. Skin is without rash or lesion. Neurologic examination is brief but nonfocal. Results - Laboratory Findings CBC and BMP: 07/04/21 15:33 07/04/21 15:33 Abnormal lab findings: Abnormal Labs 07/04/21 07/04/21 07/05/21 15:33 20:05 08:10 BUN 22 H Glucose 143 H POC Glucose (mg/dL) 301 H 286 H Calcium 10.5 H 07/05/21 12:13 BUN Glucose POC Glucose (mg/dL) 364 H Calcium - Diagnostic Findings Chest x-ray: image reviewed Assessment and Plan Assessment: Acute exacerbation of COPD, possibly triggered by acute tracheobronchitis. Prior history of 35 years of tobacco use at one pack a day. History of obstructive sleep apnea syndrome, currently on CPAP. History of dementia. History of hyperlipidemia. History of hypertension. History of syncope. History of chronic migraine cephalgia. History of Wernicke's encephalopathy. Plan: Plan dated 07/05/2021. The patient has a COPD exacerbation, complicated by purulent tracheobronchitis. The patient should be on DuoNeb 4 times a day and when necessary, Symbicort, 160/4.5, 2 puffs twice a day, and IV Solu-Medrol. In addition, the patient can receive an oral antibiotic. Chest x-ray is clear. No additional recommendations are made. We will follow along and make recommendations where appropriate. I did tell the patient, that when he is discharged, he should follow-up with us in the office, for complete pulmonary function testing, to better understand the severity of his chronic lung disease. Time with Patient: Greater than 30
[2021-07-05] MEDS ORDERED: INSULIN ASPART (NovoLOG) 100 UNIT/ML VIAL SQ ONE (12:52)
[2021-07-05] MEDS: INSULIN DETEMIR (LEVEMIR) 100 UNIT/ML SYR SQ SCH (12:58)
--- NOTE | 2021-07-05 14:10 | P.PN ---
Subjective Progress Note Date: 07/05/21 HISTORY OF PRESENT ILLNESS 50-year-old male one of Dr. Turner's Patient with past medical history of COPD, diabetes, vascular dementia, history of obstructive sleep apnea with? Of l ymphoma who is known to have history of Warnicke encephalopathy in the past who developed to have worsening shortness of breath and dyspnea with minimum exertion become much worse with inspiratory expiratory wheezes not been able to ambulate or move he become severely hypoxic ended up coming to the emergency department at [facility] where was seen and evaluated his pulse ox was in the 80s at the time was having quite BuSpar to distress was giving 3 round of updraft treatment which had helped some but continued to be hypoxic continue to have mild tachycardia. Patient was started on IV steroid, was giving 1 dose of IV antibiotics was admitted to the hospital with COPD exacerbation and worsening respiratory failure. 07/05: Patient states that wheezing is much improved from yesterday. Consult added for pulmonary medicine and patient maintained on current medications. He is currently on Solu-Medrol 60 mg IV every 6 hours and blood sugars are running 286-364. Levemir 10 units daily along with scheduled NovoLog added to his current regime with scale NovoLog, Tradjenta, glimepiride, metformin. Signed Medrol will be decreased to 40 mg every 8 hours. REVIEW OF SYSTEMS Constitutional: No fever, no chills, no night sweats. No weight change. No weakness, fatigue or lethargy. No daytime sleepiness. EENT: No headache. No blurred vision or double vision, no loss of vision. No loss of Hearing, no ringing in the ears, no dizziness. Quite bit congestion and sore throat. Lungs: Significant dyspnea and shortness of breath with worsening cough and sputum production. Reports improved wheezing Cardiovascular: No chest pain, no lower extremity edema. No palpitations. Positive PND orthopnea with mild lightheadedness with no syncope or presyncope like symptoms. Abdominal: No abdominal pain. No nausea, vomiting. No diarrhea. No constipation. No bloody or tarry stools.. No loss of appetite. Genitourinary: Mild BPH symptom with increased frequency and urgency. Musculoskeletal: No myalgias. No muscle weakness, no gait dysfunction, no freq uent falls. No back pain. No neck pain. Integumentary: No wounds, no lesions. No rash or pruritus. No unusual bruising. No change in hair or nails. Neurologic: Significant memory loss with no hepatoma no syncope this point. Psychiatric: No depression. No anxiety. No mood swings. Endocrine: Noted abnormal blood sugars. No weight change. No excessive sweating or thirst. No cold intolerance. PHYSICAL EXAMINATION Gen: This is a 51-year-old obese gentleman laying in bed had mild respiratory distress with mild dyspnea. HEENT: Head is atraumatic, normocephalic. Pupils equal, round. Sclerae is anicteric. NECK: Supple. No JVD. No lymphadenopathy. No thyromegaly. LUNGS: Decreased breath sounds bilaterally with fine rhonchi positive mild crackles positive mild expiratory wheezes. Slight crackles in the base bilaterally especially the right side. HEART: Regular rate and rhythm. No murmur. ABDOMEN: Soft. Bowel sounds are present. No masses. No tenderness. EXTREMITIES: No pedal edema. No calf tenderness. NEUROLOGICAL: He is alert awake oriented 3, cranial nerves II 12 are intact positive generalized weakness and focal deficit. ASSESSMENT AND PLAN 1. Acute hypoxic respiratory failure: Secondary to COPD exacerbation along with severe bronchitis, patient will be admitted, continue O2, continue steroid and updraft treatment. Pulmonary consultation be done. Decrease Solu-Medrol 40 mg every 8 hours 2. COPD exacerbation. Patient will continue DuoNeb along with Pulmicort continue steroid IV along with O2 3. Severe bronchitis: Patient was giving 1 g of Rocephin and switched to Omnicef Will add azithromycin. 4. Type 2 diabetes: Remain on Tradjenta, Actos, Levemir 10 units daily, NovoLog 5 units with meals and NovoLog scale, metformin. 5. Hypertension: Remain on lisinopril 2.5 mg a day along with propranolol 80 mg twice a day and verapamil SR 120 mg daily. 6. Hyperlipidemia: Continue patient on Lipitor 10 mg a day. 7. Warnicke encephalopathy and vascular dementia: Remain on Aricept 5 mg a day. 8. Chronic depression: Continue patient on trazodone 150 mg at bedtime along with citalopram 40 mg daily. 9. GI prophylaxis: Add Protonix 40 mg daily. 10. DVT prophylaxis: Will be on subcu heparin for now. 11. COVID-19 testing was negative DISCHARGE PLAN Home tomorrow Impression and plan of care have been directed as dictated by the signing physician. Maribel Davenport nurse practitioner acting as scribe for signing physician. Objective - Vital Signs Vital signs: Vital Signs Temp 97.6 F 07/05/21 07:00 Pulse 88 07/05/21 08:13 Resp 16 07/05/21 08:13 BP 115/76 07/05/21 07:00 Pulse Ox 96 07/05/21 08:00 Intake & Output 07/04/21 07/05/21 07/05/21 18:59 06:59 18:59 Weight 127.006 kg Other: Voiding Method Toilet # Voids 2 - Labs CBC & Chem 7: 07/04/21 15:33 07/04/21 15:33 Labs: Abnormal Lab Results - Last 24 Hours (Table) 07/04/21 07/04/21 07/05/21 Range/Units 15:33 20:05 08:10 BUN 22 H (9-20) mg/dL Glucose 143 H (74-99) mg/dL POC Glucose (mg/dL) 301 H 286 H (75-99) mg/dL Calcium 10.5 H (8.4-10.2) mg/dL
[2021-07-05 17:20] LABS: Glucose,Whole Blood 221 mg/dL (75-99)
[2021-07-05] MEDS: methylPREDNISolone SOD SUCCI 40 MG/ML 1 ML VIAL IV SCH ×2 (18:20→23:29)
[2021-07-05 20:00] LABS: Glucose,Whole Blood 369 mg/dL (75-99)
[2021-07-05] MEDS: traZODone HCL 50 MG TAB PO SCH (20:57)
[2021-07-05] MEDS: ATORVASTATIN 10 MG TAB PO SCH (20:57)
[2021-07-05] MEDS: VERAPAMIL SR 120 MG TABLET.ER PO SCH (20:57)
[2021-07-05] MEDS: SYMBICORT 160-4.5 MCG INHALER INHALATION SCH (21:59)
[2021-07-06 08:01] LABS: Glucose,Whole Blood 270 mg/dL (75-99)
[2021-07-06] MEDS: INSULIN DETEMIR (LEVEMIR) 100 UNIT/ML SYR SQ SCH (09:02)
[2021-07-06] MEDS: PANTOPRAZOLE 40 MG TABLET PO SCH (09:03)
[2021-07-06] MEDS: INSULIN ASPART (NovoLOG) 100 UNIT/ML VIAL SQ SCH ×7 (09:10→21:52)
[2021-07-06] MEDS: SYMBICORT 160-4.5 MCG INHALER INHALATION SCH ×2 (09:39→21:11)
[2021-07-06] MEDS: IPRATROPIUM-ALBUTEROL 3 ML NEB INHALATION SCH ×4 (09:39→21:11)
--- NOTE | 2021-07-06 10:36 | P.DS ---
Providers Date of admission: 07/04/21 16:49 Expected date of discharge: 07/07/21 Attending physician: Bryant George Consults: 07/05/21 10:03 Consult Physician Routine Consulting Provider: Maynor Ernst Consult Reason/Comments: COPD exacerbation Do you want consulting provider notified?: Yes Primary care physician: Francis Turner [facility] Hospital Course: HISTORY OF PRESENT ILLNESS 50-year-old male one of Dr. Turner's Patient with past medical history of COPD, diabetes, vascular dementia, history of obstructive sleep apnea with? Of lymphoma who is known to have history of Warnicke encephalopathy in the past who developed to have worsening shortness of breath and dyspnea with minimum exertion become much worse with inspiratory expiratory wheezes not been able to ambulate or move he become severely hypoxic ended up coming to the emergency department at [facility] where was seen and evaluated his pulse ox was in the 80s at the time was having quite BuSpar to distress was giving 3 round of updraft treatment which had helped some but continued to be hypoxic continue to have mild tachycardia. Patient was started on IV steroid, was giving 1 dose of IV antibiotics was admitted to the hospital with COPD exacerbation and worsening respiratory failure. 07/05: Patient states that wheezing is much improved from yesterday. Consult added for pulmonary medicine and patient maintained on current medications. He is currently on Solu-Medrol 60 mg IV every 6 hours and blood sugars are running 286-364. Levemir 10 units daily along with scheduled NovoLog added to his current regime with scale NovoLog, Tradjenta, glimepiride, metformin. Signed Medrol will be decreased to 40 mg every 8 hours. 07/06: Patient states that his breathing is significantly improved. He denies having any wheezing. He is on IV Solu-Medrol which will be transitioned to oral prednisone. Blood sugars remain elevated at 270-369 and expect improvement with decrease in steroids, Amaryl and metformin increased. He's been afebrile, heart rate 89, blood pressure 133/77, pulse ox 94% on room air. Patient is followed by pulmonary medicine. Discharge home tomorrow. 07/07: Patient remains afebrile, heart rate 62, blood pressure 134/76, pulse ox 96% on room air. Blood sugars are running between 145 and 317 with improvement overnight and this morning. He is currently on oral prednisone 40 mg daily. Patient states that he had a rough night breathing status is improved this morning. Patient has been seen by pulmonary medicine cleared for discharge. Patient will be discharged home today in stable condition. ASSESSMENT AND PLAN 1. Acute hypoxic respiratory failure: Secondary to COPD exacerbation along with severe bronchitis. 2. COPD exacerbation. 3. Severe bronchitis. 4. Type 2 diabetes. 5. Hypertension. 6. Hyperlipidemia. 7. Warnicke encephalopathy and vascular dementia. 8. Chronic depression. 9. COVID-19 testing was negative DISCHARGE PLAN Home Impression and plan of care have been directed as dictated by the signing physician. Maribel Davenport nurse practitioner acting as scribe for signing physician. Patient Condition at Discharge: Good Plan - Discharge Summary Discharge Rx Participant: No New Discharge Prescriptions: New predniSONE 0 mg PO DIRECTED #30 tab Cefdinir [Omnicef] 300 mg PO BID #10 cap Pantoprazole [Protonix] 40 mg PO AC-BRKFST #30 tab Budesonide-Formot 160-4.5 Mcg [Symbicort 160-4.5 Mcg Inhaler] 2 puff INHALATION RT-BID #1 inh Continue Aspirin 81 mg PO DAILY #30 chew Atorvastatin [Lipitor] 10 mg PO HS #7 tab Rivastigmine Tartrate [Rivastigmine] 3 mg PO HS sitaGLIPtin [Januvia] 100 mg PO DAILY Rivastigmine Tartrate [Rivastigmine] 1.5 mg PO DAILY lisinopriL [Zestril] 2.5 mg PO DAILY Verapamil HCl [Verapamil ER] 120 mg PO HS Albuterol Inhaler [Ventolin Hfa Inhaler] 2 puff INHALATION RT-QID PRN PRN Reason: Shortness Of Breath Citalopram Hydrobromide [CeleXA] 40 mg PO DAILY Propranolol HCl 80 mg PO BID Pioglitazone [Actos] 30 mg PO DAILY traZODone HCL 150 mg PO HS Glimepiride [Amaryl] 2 mg PO AC-BID #0 Changed metFORMIN HCL 1,000 mg PO BID #120 tab Discharge Medication List Aspirin 81 mg PO DAILY #30 chew 05/31/15 [Rx] Atorvastatin [Lipitor] 10 mg PO HS #7 tab 05/31/15 [Rx] Albuterol Inhaler [Ventolin Hfa Inhaler] 2 puff INHALATION RT-QID PRN 07/04/21 [History] Citalopram Hydrobromide [CeleXA] 40 mg PO DAILY 07/04/21 [History] Pioglitazone [Actos] 30 mg PO DAILY 07/04/21 [History] Propranolol HCl 80 mg PO BID 07/04/21 [History] Rivastigmine Tartrate [Rivastigmine] 1.5 mg PO DAILY 07/04/21 [History] Rivastigmine Tartrate [Rivastigmine] 3 mg PO HS 07/04/21 [History] Verapamil HCl [Verapamil ER] 120 mg PO HS 07/04/21 [History] lisinopriL [Zestril] 2.5 mg PO DAILY 07/04/21 [History] sitaGLIPtin [Januvia] 100 mg PO DAILY 07/04/21 [History] traZODone HCL 150 mg PO HS 07/04/21 [History] Budesonide-Formot 160-4.5 Mcg [Symbicort 160-4.5 Mcg Inhaler] 2 puff INHALATION RT-BID #1 inh 07/06/21 [Rx] Cefdinir [Omnicef] 300 mg PO BID #10 cap 07/06/21 [Rx] Glimepiride [Amaryl] 2 mg PO AC-BID #0 07/06/21 [Rx] Pantoprazole [Protonix] 40 mg PO AC-BRKFST #30 tab 07/06/21 [Rx] metFORMIN HCL 1,000 mg PO BID #120 tab 07/06/21 [Rx] predniSONE 0 mg PO DIRECTED #30 tab 07/06/21 [Rx] Follow up Appointment(s)/Referral(s): Francis Turner MD [Primary Care Provider] - 1 Week Maynor Ernst DO [Doctor of Osteopathic Medicine] - 1 Week Patient Instructions/Handouts: How to Stop Smoking (DC), COPD (Chronic Obstructive Pulmonary Disease) (DC) Discharge Disposition: HOME SELF-CARE
[2021-07-06] MEDS: CEFDINIR 300 MG CAP PO SCH ×2 (10:41→21:52)
[2021-07-06] MEDS: CITALOPRAM HYDROBROMIDE 20 MG TAB PO SCH (10:41)
[2021-07-06] MEDS: PIOGLITAZONE 30 MG TAB PO SCH (10:41)
[2021-07-06] MEDS: PROPRANOLOL 40 MG TAB PO SCH ×2 (10:41→21:52)
[2021-07-06] MEDS: metFORMIN 500 MG TAB PO SCH ×2 (10:41→18:18)
[2021-07-06] MEDS: ASPIRIN 81 MG PO SCH (10:41)
[2021-07-06] MEDS: DONEPEZIL 5 MG TAB PO SCH (10:42)
[2021-07-06] MEDS: LINAGLIPTIN 5 MG TABLET PO SCH (10:43)
[2021-07-06] MEDS: GLIMEPIRIDE 2 MG TAB PO SCH ×2 (10:43→18:11)
[2021-07-06 12:26] LABS: Glucose,Whole Blood 276 mg/dL (75-99)
--- NOTE | 2021-07-06 12:29 | P.PN ---
Subjective Progress Note Date: 07/06/21 Principal diagnosis: Shortness of breath. Pulmonary/critical care consultation dated 07/05/2021. 50-year-old male, who sees Dr. Turner, as a primary. The patient came to the emergency room on July 04 complaining of difficulty breathing for about 3 days. In addition, the patient had cough, chest tightness, wheezing, and occasional phlegm production. The patient smoked 35 years at 1 pack a day. He recently quit. He is never seen a lung doctor in the past. He does see my partner for his obstructive sleep apnea syndrome and he does use CPAP for that. Currently, he is on no supplemental oxygen, and not receiving any IV fluids. He was told in the emergency room that he had a COPD exacerbation. Again, he's never been seen in our office, and never had pulmonary function testing. He apparently has a history of dementia, hyperlipidemia, sleep apnea, syncope, chronic migraines, wearing these encephalopathy, and hyperlipidemia. Family history is positive for dementia, lung cancer, and hypertension. Lab work includes a white count 8.8, hemoglobin 15.9, hematocrit 45.8, and platelet count 232,000. Sodium 137, potassium 4.7, chlorides 102, CO2 23, anion gap 12, BUN 22, and creatinine 1.09. Calcium is 10.5. Chest x-ray was normal. Progress note dated 07/06/2021. 50-year-old male, again seen, in room 636. He is feeling better. According to the nurse, the patient was to be discharged by the primary service. In my opinion, patient still has significant bronchospasm, chest tightness, wheezing, and cough, and I think he would benefit from 1 additional day of medications. Of course, discharge is up to the primary service, and they think he should be d ischarged, so be it. Currently, the patient's on room air. He's not receiving any IV fluids. No new labs today other than a glucose of 270. The patient does feel better, but still has chest tightness, wheezing, and cough. He is not coughing up much phlegm. He denies any fever or chills. He denies any chest pain or chest discomfort. Objective - Vital Signs Vital signs: Vital Signs Temp 97.7 F 07/06/21 09:28 Pulse 88 07/06/21 09:52 Resp 17 07/06/21 09:28 BP 133/77 07/06/21 09:28 Pulse Ox 96 07/06/21 09:39 Intake & Output 07/05/21 07/06/21 07/06/21 18:59 06:59 18:59 Intake Total 118 Balance 118 Intake: Oral 118 Other: Voiding Method Toilet # Voids 1 1 - Exam No acute distress, oriented 3. No conversational dyspnea, use of accessory muscles, or audible wheezing. Currently, the patient is on room air. Saturations are 94%. HEENT examination is grossly unremarkable. Neck supple. Full range of motion. No adenopathy thyromegaly or neck vein distention. Cardiovascular examination reveals regular rhythm rate. S1-S2 normal. No S3 or S4. No discernible murmur noted. Heart sounds are distant. Heart rate 89 bpm. Lungs reveal scattered moderate expiratory rhonchi and wheezes. No crackles. Breath sounds equal bilaterally. Slight prolongation on forced maneuver. Abdomen soft bowel sounds are heard. No masses or tenderness. Extremities are intact. No cyanosis clubbing or edema. Skin is without rash or lesion. Neurologic examination is brief but nonfocal. - Labs CBC & Chem 7: 07/04/21 15:33 07/04/21 15:33 Labs: Abnormal Lab Results - Last 24 Hours (Table) 07/05/21 07/05/21 07/06/21 Range/Units 17:19 19:58 07:59 POC Glucose (mg/dL) 221 H 369 H 270 H (75-99) mg/dL Assessment and Plan Assessment: Acute exacerbation of COPD, possibly triggered by acute tracheobronchitis. Prior history of 35 years of tobacco use at one pack a day. History of obstructive sleep apnea syndrome, currently on CPAP. History of dementia. History of hyperlipidemia. History of hypertension. History of syncope. History of chronic migraine cephalgia. History of Wernicke's encephalopathy. Plan: Plan dated 07/05/2021. The patient has a COPD exacerbation, complicated by purulent tracheobronchitis. The patient should be on DuoNeb 4 times a day and when necessary, Symbicort, 160/4.5, 2 puffs twice a day, and IV Solu-Medrol. In addition, the patient can receive an oral antibiotic. Chest x-ray is clear. No additional recommendations are made. We will follow along and make recommendations where appropriate. I did tell the patient, that when he is discharged, he should follow-up with us in the office, for complete pulmonary function testing, to better understand the severity of his chronic lung disease. Plan dated 07/06/2021. The patient is still a bit bronchospastic in my opinion. He was started on karey ropriate medications including albuterol sulfate, ipratropium bromide, Symbicort, and Solu-Medrol. Should he be discharged home, he should go home on a prednisone burst and taper. Additional recommendations and suggestions are forthcoming. The patient does see one of my partners in the office and should follow that physician. No additional recommendations are made. Should he not be discharged, we will continue to follow and make recommendations where appropriate. The patient should have an outpatient complete pulmonary function test, when he is able to. Time with Patient: Less than 30
[2021-07-06] MEDS: predniSONE 20 MG TAB PO SCH (13:22)
[2021-07-06] MEDS: ACETAMINOPHEN TAB 325 MG TAB PO PRN ×2 (16:45→21:53)
[2021-07-06 17:27] LABS: Glucose,Whole Blood 262 mg/dL (75-99)
[2021-07-06 20:27] LABS: Glucose,Whole Blood 317 mg/dL (75-99)
[2021-07-06] MEDS: ATORVASTATIN 10 MG TAB PO SCH (21:52)
[2021-07-06] MEDS: traZODone HCL 50 MG TAB PO SCH (21:53)
[2021-07-06] MEDS: VERAPAMIL SR 120 MG TABLET.ER PO SCH (21:53)
[2021-07-06] MEDS ORDERED: INSULIN ASPART (NovoLOG) 100 UNIT/ML VIAL SQ ONE (21:59)
[2021-07-06] MEDS: methylPREDNISolone SOD SUCCI 40 MG/ML 1 ML VIAL IV SCH (21:59)
[2021-07-07 00:11] LABS: Glucose,Whole Blood 197 mg/dL (75-99)
[2021-07-07] MEDS ORDERED: INSULIN ASPART (NovoLOG) 100 UNIT/ML VIAL SQ ONE (00:44)
[2021-07-07 07:26] LABS: Glucose,Whole Blood 145 mg/dL (75-99)
--- NOTE | 2021-07-07 07:54 | P.PN ---
Subjective Progress Note Date: 07/06/21 HISTORY OF PRESENT ILLNESS 50-year-old male one of Dr. Turner's Patient with past medical history of COPD, diabetes, vascular dementia, history of obstructive sleep apnea with? Of l ymphoma who is known to have history of Warnicke encephalopathy in the past who developed to have worsening shortness of breath and dyspnea with minimum exertion become much worse with inspiratory expiratory wheezes not been able to ambulate or move he become severely hypoxic ended up coming to the emergency department at [facility] where was seen and evaluated his pulse ox was in the 80s at the time was having quite BuSpar to distress was giving 3 round of updraft treatment which had helped some but continued to be hypoxic continue to have mild tachycardia. Patient was started on IV steroid, was giving 1 dose of IV antibiotics was admitted to the hospital with COPD exacerbation and worsening respiratory failure. 07/05: Patient states that wheezing is much improved from yesterday. Consult added for pulmonary medicine and patient maintained on current medications. He is currently on Solu-Medrol 60 mg IV every 6 hours and blood sugars are running 286-364. Levemir 10 units daily along with scheduled NovoLog added to his current regime with scale NovoLog, Tradjenta, glimepiride, metformin. Signed Medrol will be decreased to 40 mg every 8 hours. 07/06: Patient states that his breathing is significantly improved. He denies having any wheezing. He is on IV Solu-Medrol which will be transitioned to oral prednisone. Blood sugars remain elevated at 270-369 and expect improvement with decrease in steroids, Amaryl and metformin increased. He's been afebrile, heart rate 89, blood pressure 133/77, pulse ox 94% on room air. Patient is followed by pulmonary medicine. Discharge home tomorrow. REVIEW OF SYSTEMS Constitutional: No fever, no chills, no night sweats. No weight change. No weakness, fatigue or lethargy. No daytime sleepiness. EENT: No headache. No blurred vision or double vision, no loss of vision. No loss of Hearing, no ringing in the ears, no dizziness. Quite bit congestion and sore throat. Lungs: Significant dyspnea and shortness of breath with worsening cough and sputum production, improving. Reports improved wheezing Cardiovascular: No chest pain, no lower extremity edema. No palpitations. Positive PND orthopnea with mild lightheadedness with no syncope or presyncope like symptoms. Abdominal: No abdominal pain. No nausea, vomiting. No diarrhea. No constipation. No bloody or tarry stools.. No loss of appetite. Genitourinary: Mild BPH symptom with increased frequency and urgency. Musculoskeletal: No myalgias. No muscle weakness, no gait dysfunction, no frequent falls. No back pain. No neck pain. Integumentary: No wounds, no lesions. No rash or pruritus. No unusual bruising. No change in hair or nails. Neurologic: Significant memory loss with no hepatoma no syncope this point. Psychiatric: No depression. No anxiety. No mood swings. Endocrine: Noted abnormal blood sugars. No weight change. PHYSICAL EXAMINATION Gen: This is a 51-year-old obese gentleman found walking in his room in no respiratory distress. HEENT: Head is atraumatic, normocephalic. Pupils equal, round. Sclerae is anicteric. NECK: Supple. No JVD. No lymphadenopathy. No thyromegaly. LUNGS: Decreased breath sounds bilaterally with fine rhonchi positive mild crackles positive mild expiratory wheezes. Slight crackles in the base bilaterally especially the right side. HEART: Regular rate and rhythm. No murmur. ABDOMEN: Soft. Bowel sounds are present. No masses. No tenderness. EXTREMITIES: No pedal edema. No calf tenderness. NEUROLOGICAL: He is alert awake oriented 3, cranial nerves II 12 are intact positive generalized weakness and focal deficit. ASSESSMENT AND PLAN 1. Acute hypoxic respiratory failure: Secondary to COPD exacerbation along with severe bronchitis, patient will be admitted, continue O2, continue steroid changed to oral prednisone and updraft treatment. Pulmonary consultation be done. 2. COPD exacerbation. Patient will continue DuoNeb along with Pulmicort continue steroid IV transitioned to oral prednisone along with O2 3. Severe bronchitis: Patient was giving 1 g of Rocephin and switched to Omnicef. 4. Type 2 diabetes, uncontrolled with hyperglycemia secondary to steroids. Continue Tradjenta, increase glyburide to 4 mg twice daily and increase metformin to 1000 mg twice daily, continue Levemir 10 units daily, NovoLog 5 units with meals and NovoLog scale, metformin. 5. Hypertension: Remain on lisinopril 2.5 mg a day along with propranolol 80 mg twice a day and verapamil SR 120 mg daily. 6. Hyperlipidemia: Continue patient on Lipitor 10 mg a day. 7. Warnicke encephalopathy and vascular dementia: Remain on Aricept 5 mg a day. 8. Chronic depression: Continue patient on trazodone 150 mg at bedtime along with citalopram 40 mg daily. 9. GI prophylaxis: Add Protonix 40 mg daily. 10. DVT prophylaxis: Will be on subcu heparin for now. 11. COVID-19 testing was negative DISCHARGE PLAN Home tomorrow Impression and plan of care have been directed as dictated by the signing physician. Maribel Davenport nurse practitioner acting as scribe for signing physician. Objective - Vital Signs Vital signs: Vital Signs Temp 97.8 F 07/06/21 15:00 Pulse 73 07/06/21 15:00 Resp 17 07/06/21 15:00 BP 116/69 07/06/21 15:00 Pulse Ox 93 L 07/06/21 15:00 Intake & Output 07/05/21 07/06/21 07/06/21 18:59 06:59 18:59 Intake Total 118 Balance 118 Intake: Oral 118 Other: Voiding Method Toilet # Voids 1 1 1 - Labs CBC & Chem 7: 07/04/21 15:33 07/04/21 15:33 Labs: Abnormal Lab Results - Last 24 Hours (Table) 07/05/21 07/05/21 07/06/21 Range/Units 17:19 19:58 07:59 POC Glucose (mg/dL) 221 H 369 H 270 H (75-99) mg/dL 07/06/21 Range/Units 12:23 POC Glucose (mg/dL) 276 H (75-99) mg/dL
[2021-07-07] MEDS ORDERED: metFORMIN 500 MG TAB PO SCH (08:00)
[2021-07-07] MEDS ORDERED: GLIMEPIRIDE 2 MG TAB PO SCH (08:00)
[2021-07-07] MEDS: SYMBICORT 160-4.5 MCG INHALER INHALATION SCH (08:15)
[2021-07-07] MEDS: IPRATROPIUM-ALBUTEROL 3 ML NEB INHALATION SCH (08:15)
[2021-07-07 08:34] VITALS: BP 148/83; PULSE 58; RESP 18; TEMP 97.8
[2021-07-07] MEDS: INSULIN ASPART (NovoLOG) 100 UNIT/ML VIAL SQ SCH ×2 (08:35→08:36)
[2021-07-07] MEDS: INSULIN DETEMIR (LEVEMIR) 100 UNIT/ML SYR SQ SCH (08:35)
[2021-07-07] MEDS: PIOGLITAZONE 30 MG TAB PO SCH (08:37)
[2021-07-07] MEDS: DONEPEZIL 5 MG TAB PO SCH (08:37)
[2021-07-07] MEDS: CEFDINIR 300 MG CAP PO SCH (08:37)
[2021-07-07] MEDS: ASPIRIN 81 MG PO SCH (08:37)
[2021-07-07] MEDS: PROPRANOLOL 40 MG TAB PO SCH (08:37)
[2021-07-07] MEDS: PANTOPRAZOLE 40 MG TABLET PO SCH (08:37)
[2021-07-07] MEDS: CITALOPRAM HYDROBROMIDE 20 MG TAB PO SCH (08:38)
[2021-07-07] MEDS: predniSONE 20 MG TAB PO SCH (08:38)
[2021-07-07] MEDS: LINAGLIPTIN 5 MG TABLET PO SCH (08:39)
--- NOTE | 2021-07-07 11:49 | PN ---
PROGRESS NOTE PULMONARY/CRITICAL CARE PROGRESS NOTE: This is a 50-year-old gentleman who was admitted with a diagnosis of acute exacerbation of COPD, triggered by a purulent tracheobronchitis. He does have a history of 35 years of tobacco use at one pack a day, sleep apnea syndrome, currently maintained on CPAP, dementia, hyperlipidemia, hypertension, syncope, and chronic migraine cephalgia. He also has a history of Wernicke's encephalopathy. Today he is sitting up in the chair. He is looking outside the window. He is on room air. Not receiving any IV fluids. He is feeling much better today. I think it was gibson to keep him one more day. Anyway, I did tell him that when he goes home, he has to take it easy. Current vital signs are reviewed. Temperature 97.8, heart rate 72, respiratory rate 18, blood pressure 148/83, mean 104, room-air saturation 96%. He appears in no acute distress. There is no respiratory distress, audible wheezing, or use of accessory muscles. HEENT: Examination is grossly unremarkable. NECK: Supple. Full range of motion. No adenopathy. Neck veins are flat. CARDIOVASCULAR: Examination reveals regular rhythm and rate. Heart rate 72 beats per minute. S1, S2 normal. No S3, S4, or murmur. Lungs reveal some very mild residual expiratory rhonchi and wheezes. He is almost completely clear. There is prolongation on forced maneuver and adventitious lung sounds are a bit more prominent on forced maneuver. No crackles. Abdomen is obese. Bowel sounds are heard. Extremities are intact. No cyanosis, clubbing, or edema. SKIN: Without rash. NEUROLOGIC: Examination is brief but nonfocal. No new labs today other than a glucose of 145. Microbiology is all negative. No recent chest x-ray. Medications are reviewed. ASSESSMENT: 1. Acute exacerbation of chronic obstructive pulmonary disease, possibly triggered by acute tracheobronchitis, much improved. 2. Prior history of 35 years of tobacco use at one pack a day. 3. History of obstructive sleep apnea syndrome, maintained on home CPAP. 4. History of dementia. 5. History of hyperlipidemia. 6. History of essential hypertension. 7. History of syncope. 8. History of chronic migraine cephalgia. 9. History of Wernicke's encephalopathy. PLAN: The patient could be considered for discharge. No additional recommendations are made. He should follow up in the office. He will need pulmonary function testing. Additional recommendations and suggestions are forthcoming. He does already see my partner Dr. Jimenez for his sleep apnea syndrome. We will make an appointment for outpatient evaluation and PFTs. REJI / RADHA: [phone] /
== END 2021-07-07 11:11 | disposition home or self-care (01) ==
LOC: EC 13:53 → 6NMEDSUR 16:49
PROVIDERS: ADMIT Internal Medicine Geriatric Medicine; ATTEND Internal Medicine Geriatric Medicine
DX: J44.1 Chronic obstructive pulmonary disease with (acute) exacerbation (principal); J96.01 Acute respiratory failure with hypoxia; J44.0 Chronic obstructive pulmonary disease with (acute) lower respiratory infection; J20.9 Acute bronchitis, unspecified; F01.50 Vascular dementia, unspecified severity, without behavioral disturbance, psychotic disturbance, mood disturbance, and anxiety; I11.0 Hypertensive heart disease with heart failure; I50.9 Heart failure, unspecified; G30.9 Alzheimer's disease, unspecified; F02.80 Dementia in other diseases classified elsewhere, unspecified severity, without behavioral disturbance, psychotic disturbance, mood disturbance, and anxiety; G43.909 Migraine, unspecified, not intractable, without status migrainosus; G47.33 Obstructive sleep apnea (adult) (pediatric); E51.2 Wernicke's encephalopathy; E11.65 Type 2 diabetes mellitus with hyperglycemia; T38.0X5A Adverse effect of glucocorticoids and synthetic analogues, initial encounter; E78.5 Hyperlipidemia, unspecified; N40.0 Benign prostatic hyperplasia without lower urinary tract symptoms; F32.9 Major depressive disorder, single episode, unspecified; F41.9 Anxiety disorder, unspecified; F17.210 Nicotine dependence, cigarettes, uncomplicated; E66.9 Obesity, unspecified; Z68.39 Body mass index [BMI] 39.0-39.9, adult; Z20.822 Contact with and (suspected) exposure to COVID-19; Z79.84 Long term (current) use of oral hypoglycemic drugs; Z79.899 Other long term (current) drug therapy; Z79.82 Long term (current) use of aspirin; Z88.0 Allergy status to penicillin; Z88.1 Allergy status to other antibiotic agents; Z87.820 Personal history of traumatic brain injury; Z85.72 Personal history of non-Hodgkin lymphomas; Z80.0 Family history of malignant neoplasm of digestive organs; Z80.1 Family history of malignant neoplasm of trachea, bronchus and lung; Z82.5 Family history of asthma and other chronic lower respiratory diseases; Z98.890 Other specified postprocedural states; Z82.0 Family history of epilepsy and other diseases of the nervous system; Z82.49 Family history of ischemic heart disease and other diseases of the circulatory system
CPT/HCPCS: 96376 ×2; 96374; 96375; 99285; 36415; 94640 ×7; 93005; 80053; 83605; 84484; 85025; 82272; 87636; 71046; G0378 ×4; J2920; J2930 ×2; J0696; J7512 ×2

== ENCOUNTER 2021-12-06 10:14 | Emergency (ER) | payer MEDICARE ==
[2021-12-06] MEDS ORDERED: SODIUM CHLORIDE 0.9% 1,000 ML IV STA (10:26)
[2021-12-06] MEDS ORDERED: ONDANSETRON 4 MG/2 ML VIAL IVP STA (10:26)
[2021-12-06] MEDS ORDERED: HYDROmorphone 0.5 MG/0.5 ML SYRINGE IVP STA ×2 (10:26→11:45)
[2021-12-06 10:30] VITALS: RESP 18; TEMP 99.5
[2021-12-06 10:56] LABS: ALT 46 U/L (4-49); AST 32 U/L (17-59); African American GFR (CKD) >90 (>60 ml/min/1.73 sqM); Albumin 4.2 g/dL (3.5-5.0); Alkaline Phosphatase 93 U/L (38-126); Amylase 43 U/L (30-110); Anion Gap 10 mmol/L; Blood Urea Nitrogen 30 mg/dL (9-20); Calcium 8.6 mg/dL (8.4-10.2); Carbon Dioxide 20 mmol/L (22-30); Chloride 103 mmol/L (98-107); Glucose 360 mg/dL (74-99); Lipase 71 U/L (23-300); Non-African American GFR(CKD) >90 (>60 ml/min/1.73 sqM); Potassium 4.7 mmol/L (3.5-5.1); Sodium 133 mmol/L (137-145); Total Bilirubin 0.9 mg/dL (0.2-1.3); Total Protein 6.7 g/dL (6.3-8.2)
[2021-12-06 11:12] LABS: Basophils % (A) 0 %; Eosinophils # (A) 0.2 k/uL (0-0.7); Eosinophils % (A) 2 %; HCT 47.4 % (39.0-53.0); HGB 16.4 gm/dL (13.0-17.5); Lymphocytes # (A) 0.4 k/uL (1.0-4.8); Lymphocytes % (A) 5 %; MCH 31.9 pg (25.0-35.0); MCHC 34.6 g/dL (31.0-37.0); MCV 92.2 fL (80.0-100.0); Mean Platelet Volume 9.1; Monocytes # (A) 0.4 k/uL (0-1.0); Monocytes % (A) 5 %; Neutrophils # (A) 6.9 k/uL (1.3-7.7); Neutrophils % (A) 86 %; Platelet Count 174 k/uL (150-450); RBC 5.15 m/uL (4.30-5.90); RDW 13.6 % (11.5-15.5)
--- NOTE | 2021-12-06 11:18 | ED ---
Abdominal Pain HPI - General Chief Complaint: Abdominal Pain Stated Complaint: abd pain Time Seen by Provider: 12/06/21 10:19 Source: patient, EMS, RN notes reviewed Mode of arrival: EMS Limitations: no limitations - History of Present Illness Initial Comments: This is a 51-year-old male presents emergency Department chief complaint of upper abdominal pain. Patient states it started this morning has gradually worsened. Patient states that he did feel slightly dizzy from the discomfort. He's had some nausea without vomiting. Patient is scheduled for an EGD and colonoscopy by Dr. Recinos. Patient states that he's had prior hemorrhoidectomy no other abdominal surgeries. Patient denies fever or chills no chest pain or shortness of breath. Patient states pain is in his upper abdomen on the right and left side. Is not localize. - Related Data Home Medications Medication Instructions Recorded Confirmed Albuterol Inhaler [Ventolin Hfa 2 puff INHALATION RT-QID PRN 07/04/21 12/06/21 Inhaler] Citalopram Hydrobromide [CeleXA] 40 mg PO DAILY 07/04/21 12/06/21 Pioglitazone [Actos] 30 mg PO DAILY 07/04/21 12/06/21 Propranolol HCl 80 mg PO DAILY 07/04/21 12/06/21 Rivastigmine Tartrate 1.5 mg PO DAILY 07/04/21 12/06/21 [Rivastigmine] Rivastigmine Tartrate 3 mg PO HS 07/04/21 12/06/21 [Rivastigmine] Verapamil HCl [Verapamil ER] 120 mg PO HS 07/04/21 12/06/21 lisinopriL [Zestril] 2.5 mg PO DAILY 07/04/21 12/06/21 sitaGLIPtin [Januvia] 100 mg PO DAILY 07/04/21 12/06/21 traZODone HCL 150 mg PO HS 07/04/21 12/06/21 Budesonide-Formot 160-4.5 Mcg 2 puff INHALATION RT-HS 12/06/21 12/06/21 [Symbicort 160-4.5 Mcg Inhaler] Butalb/APAP/Caff 50-325-40Mg 1 tab PO Q8H PRN 12/06/21 12/06/21 [Fioricet 50-325-40] metFORMIN HCL 500 mg PO BID 12/06/21 12/06/21 Previous Rx's Medication Instructions Recorded Atorvastatin [Lipitor] 10 mg PO HS #7 tab 05/31/15 Glimepiride [Amaryl] 2 mg PO AC-BID #0 07/06/21 Omeprazole [PriLOSEC] 20 mg PO DAILY #14 cap 12/06/21 Ondansetron Odt [Zofran Odt] 4 mg PO Q8HR PRN #10 tab 12/06/21 Allergies Allergy/AdvReac Type Severity Reaction Status Date / Time No Known Allergies Allergy Verified 12/06/21 10:55 Review of Systems ROS Statement: Those systems with pertinent positive or pertinent negative responses have been documented in the HPI. ROS Other: All systems not noted in ROS Statement are negative. Past Medical History Past Medical History: COPD, Dementia, Diabetes Mellitus, Hyperlipidemia, Hypertension, Memory Impairment, Respiratory Disorder, Sleep Apnea/CPAP/BIPAP, Syncope, Vascular Disorder Additional Past Medical History / Comment(s): chronic migraines, just dx. w/early alzheimer's, dizzy spells, concussion 05/20/15 from fall, obstructive sleep apnea with CPAP, Wernicke encephalopathy, hyperlipidemia, COPD. History of Any Multi-Drug Resistant Organisms: None Reported Past Surgical History: Tonsillectomy Additional Past Surgical History / Comment(s): Left elbow open reduction internal fixation, hemorrhoidectomy Past Anesthesia/Blood Transfusion Reactions: No Reported Reaction Past Psychological History: Anxiety, Depression Smoking Status: Current every day smoker Past Alcohol Use History: None Reported Past Drug Use History: None Reported - Past Family History Father Additional Family Medical History / Comment(s): Father at age 70 from lung ca, with history of dementia Mother Additional Family Medical History / Comment(s): Mother is age 70 with some health issues that he does not know Brother(s) Additional Family Medical History / Comment(s): Patient has 2 brothers that are healthy. He does not have any sisters. He has 3 children that are healthy. General Exam Limitations: no limitations General appearance: alert, in no apparent distress Head exam: Present: atraumatic, normocephalic, normal inspection Neck exam: Present: normal inspection, full ROM. Absent: tenderness, meningismus, lymphadenopathy Respiratory exam: Present: normal lung sounds bilaterally. Absent: respiratory distress, wheezes, rales, rhonchi, stridor Cardiovascular Exam: Present: regular rate, normal rhythm, normal heart sounds. Absent: systolic murmur, diastolic murmur, rubs, gallop, clicks GI/Abdominal exam: Present: soft, tenderness (Upper abdominal tenderness diffusely), normal bowel sounds. Absent: distended, guarding, rebound, rigid Back exam: Absent: CVA tenderness (R), CVA tenderness (L) Neurological exam: Present: alert Skin exam: Present: warm, dry, intact, normal color. Absent: rash Course Vital Signs 12/06/21 12/06/21 10:17 12:52 Temperature 99.5 F Pulse Rate 91 86 Respiratory 18 18 Rate Blood Pressure 126/73 136/81 O2 Sat by Pulse 95 96 Oximetry Medical Decision Making - Medical Decision Making CT reviewed shows mild splenomegaly, hepatomegaly, which is known on prior CT, lab data mild hyperglycemia. Patient is known diabetic. Patient was hydrated Feels improved. Patient was [place] has Vital infection, abdominal pain patient was discharged in stable condition return parameters discussed. - Lab Data Result diagrams: 12/06/21 10:31 12/06/21 10:31 Lab Results 12/06/21 12/06/21 12/06/21 Range/Units 10:31 10:31 10:31 WBC 8.0 (3.8-10.6) k/uL RBC 5.15 (4.30-5.90) m/uL Hgb 16.4 (13.0-17.5) gm/dL Hct 47.4 (39.0-53.0) % MCV 92.2 (80.0-100.0) fL MCH 31.9 (25.0-35.0) pg MCHC 34.6 (31.0-37.0) g/dL RDW 13.6 (11.5-15.5) % Plt Count 174 (150-450) k/uL MPV 9.1 Neutrophils % 86 % Lymphocytes % 5 % Monocytes % 5 % Eosinophils % 2 % Basophils % 0 % Neutrophils # 6.9 (1.3-7.7) k/uL Lymphocytes # 0.4 L (1.0-4.8) k/uL Monocytes # 0.4 (0-1.0) k/uL Eosinophils # 0.2 (0-0.7) k/uL Basophils # 0.0 (0-0.2) k/uL Manual Slide Review Performed RBC Morphology Normal Sodium 133 L (137-145) mmol/L Potassium 4.7 (3.5-5.1) mmol/L Chloride 103 (98-107) mmol/L Carbon Dioxide 20 L (22-30) mmol/L Anion Gap 10 mmol/L BUN 30 H (9-20) mg/dL Creatinine 0.95 (0.66-1.25) mg/dL Est GFR (CKD-EPI)AfAm >90 (>60 ml/min/1.73 sqM) Est GFR (CKD-EPI)NonAf >90 (>60 ml/min/1.73 sqM) Glucose 360 H (74-99) mg/dL Plasma Lactic Acid Dhaval (0.7-2.0) mmol/L Calcium 8.6 (8.4-10.2) mg/dL Total Bilirubin 0.9 (0.2-1.3) mg/dL AST 32 (17-59) U/L ALT 46 (4-49) U/L Alkaline Phosphatase 93 (38-126) U/L Troponin I (0.000-0.034) ng/mL Total Protein 6.7 (6.3-8.2) g/dL Albumin 4.2 (3.5-5.0) g/dL Amylase 43 (30-110) U/L Lipase 71 (23-300) U/L Urine Color Yellow Urine Appearance Clear (Clear) Urine pH 5.0 (5.0-8.0) Ur Specific [facility] 1.047 H (1.001-1.035) Urine Protein Negative (Negative) Urine Glucose (UA) 4+ H (Negative) Urine Ketones 1+ H (Negative) Urine Blood Negative (Negative) Urine Nitrite Negative (Negative) Urine Bilirubin Negative (Negative) Urine Urobilinogen <2.0 (<2.0) mg/dL Ur Leukocyte Esterase Negative (Negative) 12/06/21 12/06/21 Range/Units 10:31 10:31 WBC (3.8-10.6) k/uL RBC (4.30-5.90) m/uL Hgb (13.0-17.5) gm/dL Hct (39.0-53.0) % MCV (80.0-100.0) fL MCH (25.0-35.0) pg MCHC (31.0-37.0) g/dL RDW (11.5-15.5) % Plt Count (150-450) k/uL MPV Neutrophils % % Lymphocytes % % Monocytes % % Eosinophils % % Basophils % % Neutrophils # (1.3-7.7) k/uL Lymphocytes # (1.0-4.8) k/uL Monocytes # (0-1.0) k/uL Eosinophils # (0-0.7) k/uL Basophils # (0-0.2) k/uL Manual Slide Review RBC Morphology Sodium (137-145) mmol/L Potassium (3.5-5.1) mmol/L Chloride (98-107) mmol/L Carbon Dioxide (22-30) mmol/L Anion Gap mmol/L BUN (9-20) mg/dL Creatinine (0.66-1.25) mg/dL Est GFR (CKD-EPI)AfAm (>60 ml/min/1.73 sqM) Est GFR (CKD-EPI)NonAf (>60 ml/min/1.73 sqM) Glucose (74-99) mg/dL Plasma Lactic Acid Dhaval 2.0 (0.7-2.0) mmol/L Calcium (8.4-10.2) mg/dL Total Bilirubin (0.2-1.3) mg/dL AST (17-59) U/L ALT (4-49) U/L Alkaline Phosphatase (38-126) U/L Troponin I <0.012 (0.000-0.034) ng/mL Total Protein (6.3-8.2) g/dL Albumin (3.5-5.0) g/dL Amylase (30-110) U/L Lipase (23-300) U/L Urine Color Urine Appearance (Clear) Urine pH (5.0-8.0) Ur Specific [facility] (1.001-1.035) Urine Protein (Negative) Urine Glucose (UA) (Negative) Urine Ketones (Negative) Urine Blood (Negative) Urine Nitrite (Negative) Urine Bilirubin (Negative) Urine Urobilinogen (<2.0) mg/dL Ur Leukocyte Esterase (Negative) Disposition Clinical Impression: Abdominal pain, Enteritis Disposition: HOME SELF-CARE Condition: Stable Instructions (If sedation given, give patient instructions): Abdominal Pain (ED) Additional Instructions: Please return to the Emergency Department if symptoms worsen or any other concerns. Prescriptions: Omeprazole [PriLOSEC] 20 mg PO DAILY #14 cap Ondansetron Odt [Zofran Odt] 4 mg PO Q8HR PRN #10 tab PRN Reason: Nausea Is patient prescribed a controlled substance at d/c from ED?: No Referrals: Francis Turner MD [Primary Care Provider] - 1-2 days Time of Disposition: 13:41
[2021-12-06] MEDS ORDERED: FAMOTIDINE 20 MG/2 ML VIAL IV STA (11:45)
[2021-12-06 11:56] LABS: RBC Morphology Normal
--- NOTE | 2021-12-06 12:07 | CT ---
EXAMINATION TYPE: CT abdomen pelvis w con DATE OF EXAM: 12/06/2021 COMPARISON: CT 12/02/2020 HISTORY: Left upper quadrant pain CT DLP: 2670 mGycm Automated exposure control for dose reduction was used. TECHNIQUE: Helical acquisition of images from the lung bases through the pelvis have been completed. CONTRAST: Performed without Oral Contrast and with IV Contrast, patient injected with 100 mL of Isovue 300. FINDINGS: LUNG BASES: No significant abnormality is appreciated, minimal dependent atelectatic changes noted. AORTA: No significant abnormality is appreciated. LIVER/GB: Liver shows low attenuation likely due to hepatic steatosis, gallbladder is normal. Liver i s enlarged. PANCREAS: No significant abnormality is seen. SPLEEN: Enlarged measuring 16 cm in AP dimension ADRENALS: No significant abnormality is seen. KIDNEYS: Cortical cyst in the right kidney is again seen, there is no hydronephrosis or evident urete ral calculus REPRODUCTIVE ORGANS: No significant abnormality is seen BOWEL: Fluid-filled filled loops of small bowel are noted and extending into the colon. The appendix is normal. FREE AIR: No Free Air visible. ASCITES: None visible. PELVIC ADENOPATHY: None visualized. RETROPERITONEAL ADENOPATHY: No Retroperitoneal Adenopathy visible. URINARY BLADDER: No significant abnormality is seen. OSSEOUS STRUCTURES: No significant abnormality is seen. IMPRESSION: SPLENOMEGALY HAS PROGRESSED IN THE INTERVAL. HEPATIC STEATOSIS, HEPATOMEGALY. Correlate for possible gastroenteritis.
[2021-12-06] MEDS ORDERED: MAG HYDROX/AL HYDROX/SIMETH 30 ML, HYOSCYAMINE ELIXIR 10 ML PO STA ×2 (12:49)
[2021-12-06 13:14] LABS: Appearance,Urine Clear (Clear); Bilirubin,Urine Negative (Negative); Blood,Urine Negative (Negative); Color,Urine Yellow; Glucose,Urine (UA) 4+ (Negative); Ketones,Urine 1+ (Negative); Leukocyte Esterase,Urine Negative (Negative); Nitrite,Urine Negative (Negative); Protein,Urine Negative (Negative); Urobilinogen,Urine <2.0 mg/dL (<2.0)
[2021-12-06 13:17] LABS: Specific Gravity,Urine 1.047 (1.001-1.035)
[2021-12-06] MEDS ORDERED: ACET/COD 300 MG/30 MG STARTER PACK 6 TAB BTL PO STA (13:41)
[2021-12-06 14:07] VITALS: BP 111/82; PULSE 83
== END 2021-12-06 14:06 | disposition home or self-care (01) ==
LOC: EC 10:14
DX: K52.9 Noninfective gastroenteritis and colitis, unspecified (principal); R16.2 Hepatomegaly with splenomegaly, not elsewhere classified; E11.9 Type 2 diabetes mellitus without complications; E78.5 Hyperlipidemia, unspecified; I10 Essential (primary) hypertension; J44.9 Chronic obstructive pulmonary disease, unspecified; F03.90 Unspecified dementia, unspecified severity, without behavioral disturbance, psychotic disturbance, mood disturbance, and anxiety; F41.9 Anxiety disorder, unspecified; F32.A Depression, unspecified; F17.200 Nicotine dependence, unspecified, uncomplicated; Z79.84 Long term (current) use of oral hypoglycemic drugs; Z79.899 Other long term (current) drug therapy
CPT/HCPCS: 99284; 96374; 96375 ×2; 96376; 96361; 36415; 93005; 80053; 82150; 83605; 83690; 84484; 85025; 81003; 74177; J2405; J1170; Q9967

== ENCOUNTER → 2023-03-12 | Outpatient (CLI) | payer MEDICARE ==
--- NOTE | 2023-03-13 05:29 | MR ---
EXAMINATION TYPE: MR shoulder RT wo con DATE OF EXAM: 03/12/2023 COMPARISON: Outside right shoulder x-ray February 27, 2023 HISTORY: Rt shoulder pain for 3 weeks with difficulty raising arm overhead. TECHNIQUE: Multiplanar, multisequence imaging of the right shoulder is performed without contrast. FINDINGS: Rotator Cuff: Increased signal in the infraspinatus and supraspinatus tendons with focal full-thickne ss tear involving the anterior fibers of the distal supraspinatus tendon measuring approximately 7 mm AP diameter sagittal image 24. Subscapularis tendon intact. Rotator cuff muscle bulk preserved. Acromioclavicular Joint: Moderate narrowing and capsular hypertrophy. Mild to moderate spurring. Glenohumeral Joint: Small to moderate-sized joint effusion. No significant spurring. Labrum: Increased signal superior labrum consistent with tear. Biceps Tendon: The long head of biceps is in normal location within bicipital groove. Bone marrow signal: No focal abnormal marrow signal is appreciated. Other: No additional significant abnormality is appreciated. IMPRESSION: 1. Tendinosis of the supraspinatus and infraspinatus tendons. Focal full-thickness tear involving ant erior fibers of the supraspinatus tendon. 2. Superior labral tear.
== END | disposition home or self-care (01) ==
LOC: RADMRIMAIN 06:42
PROVIDERS: ATTEND Orthopaedic Surgery
DX: M75.111 Incomplete rotator cuff tear or rupture of right shoulder, not specified as traumatic (principal); M67.813 Other specified disorders of tendon, right shoulder

== ENCOUNTER → 2023-04-02 | Outpatient (CLI) | payer MEDICARE ==
[2023-04-02 20:52] LABS: BUN/Creat Ratio 15.18 Ratio (12.00-20.00); Blood Urea Nitrogen 16.7 mg/dL (9.0-27.0); Calcium 9.9 mg/dL (8.7-10.3); Carbon Dioxide 25.7 mmol/L (21.6-31.8); Chloride 100 mmol/L (96-109); Glucose 307 mg/dL (70-110); Potassium 4.2 mmol/L (3.5-5.5); Sodium 136 mmol/L (135-145)
[2023-04-03 01:31] LABS: Basophils # (A) 0.04 X 10*3/uL (0.00-0.10); Basophils % (A) 0.5 %; Eosinophils # (A) 0.28 X 10*3/uL (0.04-0.35); Eosinophils % (A) 3.6 %; HCT 44.6 % (39.6-50.0); HGB 15.1 d/dL (12.0-15.0); Lymphocytes # (A) 2.37 X 10*3/uL (0.90-5.00); Lymphocytes % (A) 30.3 %; MCH 30.4 pg (27.0-32.0); MCHC 33.9 d/dL (32.0-37.0); MCV 89.7 FL (80.0-97.0); Mean Platelet Volume 11.8 FL (9.5-12.2); Monocytes # (A) 0.61 X 10*3/uL (0.20-1.00); Monocytes % (A) 7.8 %; NRBC Per 100 WBC 0 X 10*3/uL (0.00-0.01); Neutrophils % (A) 57.4 %; Platelet Count 183 X 10*3/uL (140-440); RBC 4.97 X 10*6/uL (4.40-5.60); RDW 12.8 % (11.5-14.5); WBC 7.83 X 10*3/uL (4.50-10.00)
== END | disposition home or self-care (01) ==
LOC: LABWHC1 14:03
PROVIDERS: ATTEND Family Medicine
DX: I10 Essential (primary) hypertension (principal); E11.9 Type 2 diabetes mellitus without complications
CPT/HCPCS: 36415; 80048; 83036; 85025

== ENCOUNTER → 2023-04-10 | Outpatient (CLI) | payer MEDICARE ==
[2023-04-10 14:47] LABS: Chol/HDL Ratio 7.12 Ratio; HDL Cholesterol 28.1 mg/dL (40.00-60.00); LDL Cholesterol,Calculated 12.5 mg/dL (0.0-131.0); VLDL Calculation 159.4 mg/dL (5.00-40.00)
[2023-04-10 15:00] LABS: LDL Cholesterol,Direct Reflex 69.7 mg/dL (0.00-129.00)
== END | disposition home or self-care (01) ==
LOC: LABWHC1 09:00
PROVIDERS: ATTEND Internal Medicine Interventional Cardiology
DX: E78.2 Mixed hyperlipidemia (principal)
CPT/HCPCS: 36415; 80061; 83721; 84450; 84460

== ENCOUNTER 2023-04-19 15:42 | Emergency (ER) | payer MEDICARE ==
[2023-04-19 16:29] VITALS: TEMP 97.9
[2023-04-19 18:04] LABS: Glucose,Whole Blood 438 mg/dL (70-110)
[2023-04-19] MEDS ORDERED: SODIUM CHLORIDE 0.9% 2,000 ML IV ONE (18:55)
--- NOTE | 2023-04-19 19:06 | ED ---
Recheck HPI - General Chief Complaint: Recheck/Abnormal Lab/Rx Stated Complaint: blood sugar is 425 Time Seen by Provider: 04/19/23 17:56 Source: patient Mode of arrival: ambulatory Limitations: no limitations - History of Present Illness Initial Comments: This patient is a 52-year-old man who states that he was scheduled to have a shoulder surgery this morning, but when he showed up to have his surgery his blood sugar was found to be 390, and surgery was postponed. Patient states she does have history of diabetes and had not eaten or taken medication today in preparation for surgery. Patient states that he went home and then rechecked his blood sugar and found that it was 425 so he presents here to have further evaluation and treatment. Patient notes that he has been a bit fatigued of late and he is urinating more than usual but denies any symptoms of infection, chest pain, dyspnea. MD Complaint: abnormal lab Onset/Timin -: hour(s) Returns Today for: other Symptoms Since Prior Visit: no new symptoms Context: other Associated Symptoms: other - Related Data Home Medications Medication Instructions Recorded Confirmed Albuterol Inhaler [Ventolin Hfa 2 puff INHALATION RT-QID PRN 07/04/21 04/16/23 Inhaler] Citalopram Hydrobromide [CeleXA] 40 mg PO DAILY 07/04/21 04/16/23 Pioglitazone [Actos] 30 mg PO DAILY 07/04/21 04/16/23 Propranolol HCl 80 mg PO DAILY 07/04/21 04/16/23 Rivastigmine Tartrate 1.5 mg PO DAILY 07/04/21 04/16/23 [Rivastigmine] Rivastigmine Tartrate 3 mg PO HS 07/04/21 04/16/23 [Rivastigmine] Verapamil HCl [Verapamil ER] 120 mg PO HS 07/04/21 04/16/23 lisinopriL [Zestril] 2.5 mg PO DAILY 07/04/21 04/16/23 traZODone HCL 150 mg PO HS 07/04/21 04/16/23 Budesonide-Formot 160-4.5 Mcg 2 puff INHALATION RT-HS 12/06/21 04/16/23 [Symbicort 160-4.5 Mcg Inhaler] Butalb/APAP/Caff 50-325-40Mg 1 tab PO Q8H PRN 12/06/21 04/16/23 [Fioricet 50-325-40] metFORMIN HCL 500 mg PO BID 12/06/21 04/16/23 Aspirin 81 mg PO DAILY 04/16/23 04/16/23 Atorvastatin [Lipitor] 20 mg PO HS 04/16/23 04/16/23 Semaglutide [Rybelsus] 7 mg PO DAILY 04/16/23 04/16/23 Unk [place] 3 1 tab PO DAILY 04/16/23 04/16/23 Previous Rx's Medication Instructions Recorded Glimepiride [Amaryl] 2 mg PO AC-BID #0 07/06/21 Ondansetron Odt [Zofran Odt] 4 mg PO Q8HR PRN #10 tab 12/06/21 Allergies Allergy/AdvReac Type Severity Reaction Status Date / Time No Known Allergies Allergy Verified 04/19/23 16:29 Review of Systems ROS Statement: Those systems with pertinent positive or pertinent negative responses have been documented in the HPI. ROS Other: All systems not noted in ROS Statement are negative. Constitutional: Denies: fever, chills Respiratory: Denies: cough, dyspnea, wheezes Cardiovascular: Denies: chest pain, palpitations, edema Endocrine: Reports: fatigue, polyuria Gastrointestinal: Denies: abdominal pain, vomiting, diarrhea Genitourinary: Denies: dysuria, frequency, hematuria Musculoskeletal: Denies: back pain Skin: Denies: rash Neurological: Denies: headache, weakness, numbness Past Medical History Past Medical History: COPD, Dementia, Diabetes Mellitus, Hyperlipidemia, Hypertension, Memory Impairment, Respiratory Disorder, Sleep Apnea/CPAP/BIPAP, Syncope, Vascular Disorder Additional Past Medical History / Comment(s): chronic migraines, just dx. w/early alzheimer's,hx dizzy spells ( when up on ladders), concussion 05/20/15 from fall, obstructive sleep apnea wears CPAP, Wernicke encephalopathy, History of Any Multi-Drug Resistant Organisms: None Reported Past Surgical History: Tonsillectomy Additional Past Surgical History / Comment(s): Left elbow open reduction internal fixation, hemorrhoidectomy, colonscopy Past Anesthesia/Blood Transfusion Reactions: No Reported Reaction Past Psychological History: Anxiety, Depression Smoking Status: Current every day smoker Past Alcohol Use History: None Reported Past Drug Use History: None Reported - Past Family History Father Additional Family Medical History / Comment(s): Father at age 69 from bladder ca, with history of vasular dementia Mother Family Medical History: Diabetes Mellitus Additional Family Medical History / Comment(s): open heart in her 60s Brother(s) Additional Family Medical History / Comment(s): Patient has 2 brothers that are healthy. He does not have any sisters. General Exam Limitations: no limitations General appearance: alert, in no apparent distress Head exam: Present: atraumatic, normocephalic Eye exam: Present: normal appearance. Absent: scleral icterus, conjunctival injection ENT exam: Present: normal oropharynx Neck exam: Present: normal inspection Respiratory exam: Present: normal lung sounds bilaterally. Absent: respiratory distress, wheezes, rales, rhonchi, stridor Cardiovascular Exam: Present: regular rate, normal rhythm, normal heart sounds. Absent: systolic murmur, diastolic murmur, rubs, gallop GI/Abdominal exam: Present: soft. Absent: distended, tenderness, guarding, rebound, rigid, mass Extremities exam: Present: normal inspection, normal capillary refill. Absent: pedal edema, calf tenderness Back exam: Present: normal inspection. Absent: CVA tenderness (R), CVA tenderness (L) Neurological exam: Present: alert Skin exam: Present: warm, dry, intact, normal color. Absent: rash Course Vital Signs 04/19/23 04/19/23 04/19/23 16:27 19:30 22:09 Temperature 97.9 F Pulse Rate 70 59 L 63 Respiratory 20 18 18 Rate Blood Pressure 143/82 149/77 133/97 O2 Sat by Pulse 96 99 95 Oximetry Medical Decision Making - Medical Decision Making This patient is 52-year-old man here to have evaluation for hyperglycemia. The patient had been nothing by mouth and therefore I did not take all of his medications with resulting hyperglycemia. The patient workup is otherwise unremarkable. Hyperglycemia treated with fluids and insulin and he does request discharge while the blood sugar slightly higher than his usual practice. Patient to follow-up to have further diabetic education/medication adjustment by his primary physician discussed further care as well as return parameters. Was pt. sent in by a medical professional or institution (, PA, AMERICAN HISTORY TEACHER, urgent care, hospital, or [facility]...) When possible be specific @ -[Yes sent from preop to have further evaluation Did you speak to anyone other than the patient for history (EMS, parent, family, police, friend...)? What history was obtained from this source @ -[No] Did you review nursing and triage notes (agree or disagree)? Why? @ -[I reviewed and agree with nursing and triage notes] Were old charts reviewed (outside hosp., previous admission, EMS record, old EKG, old radiological studies, urgent care reports/EKG's, [facility] records)? Report findings @ -[No old charts were reviewed] Differential Diagnosis (chest pain, altered mental status, abdominal pain women, abdominal pain men, vaginal bleeding, weakness, fever, dyspnea, syncope, headache, dizziness, GI bleed, back pain, seizure, CVA, palpatations, mental health, musculoskeletal)? @ -[Differential diagnosis for hyperglycemia includes medical/dietary noncompliance, infection, MD, amongst other conditions EKG interpreted by me (3pts min.). @ -[As above] X-rays interpreted by me (1pt min.). @ -[None done] CT interpreted by me (1pt min.). @ -[None done] U/S interpreted by me (1pt. min.). @ -[None done] What testing was considered but not performed or refused? (CT, X-rays, U/S, labs)? Why? @ -[None] What meds were considered but not given or refused? Why? @ -[None] Did you discuss the management of the patient with other professionals (iker maddox i.e. , PA, AMERICAN HISTORY TEACHER, lab, RT, psych nurse, social service director, manager mobile, teacher, parking officer, caser)? Give summary @ -[No] Was smoking cessation discussed for >3mins.? @ -[No] Was critical care preformed (if so, how long)? @ -[No] Were there social determinants of health that impacted care today? How? (Homelessness, low income, unemployed, alcoholism, drug addiction, tr ansportation, low edu. Level, literacy, decrease access to med. care, halfway, rehab)? @ -[No] Was there de-escalation of care discussed even if they declined (Discuss DNR or withdrawal of care, Hospice)? DNR status @ -[No] What co-morbidities impacted this encounter? (DM, HTN, Smoking, COPD, CAD, Cancer, CVA, ARF, Chemo, Hep., AIDS, mental health diagnosis, sleep apnea, morbid obesity)? @ -[Diabetes Was patient admitted / discharged? Hospital course, mention meds given and route, prescriptions, significant lab abnormalities, going to OR and other pertinent info. @ -[Discharged, as above Undiagnosed new problem with uncertain prognosis? @ -[No] Drug Therapy requiring intensive monitoring for toxicity (Heparin, Nitro, Insulin, Cardizem)? @ -[No] Were any procedures done? @ -[No] Diagnosis/symptom? @ -[Acute hyperglycemia and diabetic patient Acute, or Chronic, or Acute on Chronic? @ -[default] Uncomplicated (without systemic symptoms) or Complicated (systemic symptoms)? @ -[Uncomplicated Side effects of treatment? @ -[No] Exacerbation, Progression, or Severe Exacerbation? @ -[No] Poses a threat to life or bodily function? How? (Chest pain, [place], MD, pneumonia, PE, COPD, DKA, ARF, appy, cholecystitis, CVA, Diverticulitis, Homicidal, Suicidal, threat to staff... and all critical care pts) @ -[No] - Lab Data Result diagrams: 04/19/23 18:58 04/19/23 18:58 Lab Results 04/19/23 04/19/23 04/19/23 Range/Units 18:03 18:58 18:58 WBC 6.7 (3.8-10.6) k/uL RBC 4.60 (4.30-5.90) m/uL Hgb 14.9 (13.0-17.5) gm/dL Hct 41.1 (39.0-53.0) % MCV 89.4 (80.0-100.0) fL MCH 32.4 (25.0-35.0) pg MCHC 36.2 (31.0-37.0) g/dL RDW 13.0 (11.5-15.5) % Plt Count 150 (150-450) k/uL MPV 9.5 Neutrophils % 49 % Lymphocytes % 38 % Monocytes % 7 % Eosinophils % 4 % Basophils % 1 % Neutrophils # 3.3 (1.3-7.7) k/uL Lymphocytes # 2.5 (1.0-4.8) k/uL Monocytes # 0.5 (0-1.0) k/uL Eosinophils # 0.3 (0-0.7) k/uL Basophils # 0.0 (0-0.2) k/uL D-Dimer <0.17 (<0.60) mg/L FEU Sodium (137-145) mmol/L Potassium (3.5-5.1) mmol/L Chloride (98-107) mmol/L Carbon Dioxide (22-30) mmol/L Anion Gap mmol/L BUN (9-20) mg/dL Creatinine (0.66-1.25) mg/dL Est GFR (CKD-EPI)AfAm (>60 ml/min/1.73 sqM) Est GFR (CKD-EPI)NonAf (>60 ml/min/1.73 sqM) Glucose (74-99) mg/dL POC Glucose (mg/dL) 438 H (70-110) mg/dL POC Glu Speech Language Pathologist Prn ID Christal Mcnulty Calcium (8.4-10.2) mg/dL Total Bilirubin (0.2-1.3) mg/dL AST (17-59) U/L ALT (4-49) U/L Alkaline Phosphatase (38-126) U/L Troponin I (0.000-0.034) ng/mL Total Protein (6.3-8.2) g/dL Albumin (3.5-5.0) g/dL Acetone, Qual (Negative) 04/19/23 04/19/23 04/19/23 Range/Units 18:58 18:58 22:02 WBC (3.8-10.6) k/uL RBC (4.30-5.90) m/uL Hgb (13.0-17.5) gm/dL Hct (39.0-53.0) % MCV (80.0-100.0) fL MCH (25.0-35.0) pg MCHC (31.0-37.0) g/dL RDW (11.5-15.5) % Plt Count (150-450) k/uL MPV Neutrophils % % Lymphocytes % % Monocytes % % Eosinophils % % Basophils % % Neutrophils # (1.3-7.7) k/uL Lymphocytes # (1.0-4.8) k/uL Monocytes # (0-1.0) k/uL Eosinophils # (0-0.7) k/uL Basophils # (0-0.2) k/uL D-Dimer (<0.60) mg/L FEU Sodium 131 L (137-145) mmol/L Potassium 4.5 (3.5-5.1) mmol/L Chloride 100 (98-107) mmol/L Carbon Dioxide 18 L (22-30) mmol/L Anion Gap 13 mmol/L BUN 21 H (9-20) mg/dL Creatinine 0.79 (0.66-1.25) mg/dL Est GFR (CKD-EPI)AfAm >90 (>60 ml/min/1.73 sqM) Est GFR (CKD-EPI)NonAf >90 (>60 ml/min/1.73 sqM) Glucose 423 H (74-99) mg/dL POC Glucose (mg/dL) 306 H (70-110) mg/dL POC Glu Speech Language Pathologist Prn ID Christal Mcnulty Calcium 9.1 (8.4-10.2) mg/dL Total Bilirubin 0.5 (0.2-1.3) mg/dL AST 21 (17-59) U/L ALT 26 (4-49) U/L Alkaline Phosphatase 136 H (38-126) U/L Troponin I <0.012 (0.000-0.034) ng/mL Total Protein 6.9 (6.3-8.2) g/dL Albumin 4.1 (3.5-5.0) g/dL Acetone, Qual Negative (Negative) Disposition Clinical Impression: Hyperglycemia due to diabetes mellitus Disposition: HOME SELF-CARE Condition: Fair Instructions (If sedation given, give patient instructions): Diabetic Hyperglycemia (ED) Is patient prescribed a controlled substance at d/c from ED?: No Referrals: Francis Turner [Primary Care Provider] - 1-2 days
[2023-04-19 19:09] LABS: Basophils % (A) 1 %; Eosinophils # (A) 0.3 k/uL (0-0.7); Eosinophils % (A) 4 %; HCT 41.1 % (39.0-53.0); HGB 14.9 gm/dL (13.0-17.5); Lymphocytes # (A) 2.5 k/uL (1.0-4.8); Lymphocytes % (A) 38 %; MCH 32.4 pg (25.0-35.0); MCHC 36.2 g/dL (31.0-37.0); MCV 89.4 fL (80.0-100.0); Mean Platelet Volume 9.5; Monocytes # (A) 0.5 k/uL (0-1.0); Monocytes % (A) 7 %; Neutrophils # (A) 3.3 k/uL (1.3-7.7); Neutrophils % (A) 49 %; Platelet Count 150 k/uL (150-450); WBC 6.7 k/uL (3.8-10.6)
[2023-04-19] MEDS ORDERED: HYDROcodone/APAP 5-325MG 1 EACH TAB PO STA (19:25)
[2023-04-19 19:29] LABS: ALT 26 U/L (4-49); AST 21 U/L (17-59); African American GFR (CKD) >90 (>60 ml/min/1.73 sqM); Albumin 4.1 g/dL (3.5-5.0); Alkaline Phosphatase 136 U/L (38-126); Anion Gap 13 mmol/L; Blood Urea Nitrogen 21 mg/dL (9-20); Calcium 9.1 mg/dL (8.4-10.2); Carbon Dioxide 18 mmol/L (22-30); Chloride 100 mmol/L (98-107); Glucose 423 mg/dL (74-99); Non-African American GFR(CKD) >90 (>60 ml/min/1.73 sqM); Potassium 4.5 mmol/L (3.5-5.1); Sodium 131 mmol/L (137-145); Total Bilirubin 0.5 mg/dL (0.2-1.3); Total Protein 6.9 g/dL (6.3-8.2)
[2023-04-19 19:31] VITALS: RESP 18
[2023-04-19 22:04] LABS: Glucose,Whole Blood 306 mg/dL (70-110)
[2023-04-19 22:10] VITALS: BP 133/97; PULSE 63
== END 2023-04-19 22:11 | disposition home or self-care (01) ==
LOC: EC 15:42
DX: E11.65 Type 2 diabetes mellitus with hyperglycemia (principal); J44.9 Chronic obstructive pulmonary disease, unspecified; I10 Essential (primary) hypertension; E78.5 Hyperlipidemia, unspecified; G30.9 Alzheimer's disease, unspecified; F02.80 Dementia in other diseases classified elsewhere, unspecified severity, without behavioral disturbance, psychotic disturbance, mood disturbance, and anxiety; F41.9 Anxiety disorder, unspecified; F17.200 Nicotine dependence, unspecified, uncomplicated; Z79.84 Long term (current) use of oral hypoglycemic drugs; Z79.82 Long term (current) use of aspirin; Z79.51 Long term (current) use of inhaled steroids; Z79.899 Other long term (current) drug therapy
CPT/HCPCS: 36415; 80053; 82009; 84484; 85025; 85379; 96360; 96361; 99283

== ENCOUNTER → 2023-04-19 | Day surgery (SDC) | payer MEDICARE ==
--- NOTE | 2023-04-18 08:24 | P.HPOR ---
History of Present Illness H&P Date: 04/18/23 Chief Complaint: Right shoulder pain The patient is a 52-year-old male who presents with right shoulder pain after an injury at the end of January this year. He was swinging a hammer. He felt a pop. He's had pain with overhead use and at night ever since. He's been wearing the sling and taking medications for this. He denies previous problems. Review of Systems As per HPI Past Medical History Past Medical History: COPD, Dementia, Diabetes Mellitus, Hyperlipidemia, Hypertension, Memory Impairment, Respiratory Disorder, Sleep Apnea/CPAP/BIPAP, Syncope, Vascular Disorder Additional Past Medical History / Comment(s): chronic migraines, just dx. w/early alzheimer's,hx dizzy spells ( when up on ladders), concussion 05/20/15 from fall, obstructive sleep apnea wears CPAP, Wernicke encephalopathy, History of Any Multi-Drug Resistant Organisms: None Reported Past Surgical History: Tonsillectomy Additional Past Surgical History / Comment(s): Left elbow open reduction internal fixation, hemorrhoidectomy, colonscopy Past Anesthesia/Blood Transfusion Reactions: No Reported Reaction Smoking Status: Current every day smoker - Past Family History Father Additional Family Medical History / Comment(s): Father at age 69 from bladder ca, with history of vasular dementia Mother Family Medical History: Diabetes Mellitus Additional Family Medical History / Comment(s): open heart in her 60s Brother(s) Additional Family Medical History / Comment(s): Patient has 2 brothers that are healthy. He does not have any sisters. Medications and Allergies Home Medications Medication Instructions Recorded Confirmed Type Albuterol Inhaler [Ventolin Hfa 2 puff INHALATION RT-QID PRN 07/04/21 04/16/23 History Inhaler] Citalopram Hydrobromide [CeleXA] 40 mg PO DAILY 07/04/21 04/16/23 History Pioglitazone [Actos] 30 mg PO DAILY 07/04/21 04/16/23 History Propranolol HCl 80 mg PO DAILY 07/04/21 04/16/23 History Rivastigmine Tartrate 1.5 mg PO DAILY 07/04/21 04/16/23 History [Rivastigmine] Rivastigmine Tartrate 3 mg PO HS 07/04/21 04/16/23 History [Rivastigmine] Verapamil HCl [Verapamil ER] 120 mg PO HS 07/04/21 04/16/23 History lisinopriL [Zestril] 2.5 mg PO DAILY 07/04/21 04/16/23 History traZODone HCL 150 mg PO HS 07/04/21 04/16/23 History Glimepiride [Amaryl] 2 mg PO AC-BID #0 07/06/21 04/16/23 Rx Budesonide-Formot 160-4.5 Mcg 2 puff INHALATION RT-HS 12/06/21 04/16/23 History [Symbicort 160-4.5 Mcg Inhaler] Butalb/APAP/Caff 50-325-40Mg 1 tab PO Q8H PRN 12/06/21 04/16/23 History [Fioricet 50-325-40] Ondansetron Odt [Zofran Odt] 4 mg PO Q8HR PRN #10 tab 12/06/21 04/16/23 Rx metFORMIN HCL 500 mg PO BID 12/06/21 04/16/23 History Aspirin 81 mg PO DAILY 04/16/23 04/16/23 History Atorvastatin [Lipitor] 20 mg PO HS 04/16/23 04/16/23 History Semaglutide [Rybelsus] 7 mg PO DAILY 04/16/23 04/16/23 History Unk [place] 3 1 tab PO DAILY 04/16/23 04/16/23 History Allergies Allergy/AdvReac Type Severity Reaction Status Date / Time No Known Allergies Allergy Verified 04/16/23 12:17 Physical Examination - Shoulder right Tenderness with palpation: anterior, bicipital groove Pain: with abduction, with forward flexion ROM: forward flexion: 120 degrees ROM: internal rotation: lower lumbar ROM: external rotation: 30 degrees Crepitus with motion: Yes Strength: abduction: 4/5 Strength: external rotation: 4/5 Tests: internal impingement tests: positive, external impingment tests: positive Results The patient is a well-developed well-nourished male approximately 5 foot 11, 265 pounds of endomorphic habitus. HEENT exam is nonfocal, neck is supple. He's tender about the right shoulder anterior subacromial space. He has moderate crepitus. Passive forward elevation is 150. Glasgow, Neer's sign, and speed test are positive. His distal neurovascular appears intact in the right upper extremity. - Diagnostic results Shoulder MRI: image reviewed (Right shoulder MRI is reviewed and shows evidence of a full-thickness tear involving the anterior supraspinatus along with a superior labral tear.) Assessment and Plan Assessment: Right rotator cuff tearacutesymptomatic Right superior labral tear/proximal biceps strain Plan: I talked the patient length regarding his condition along with treatment options. At this point he is quite symptomatic having pain and weakness after this acute injury. After a thorough discussion he opted to proceed with surgery. We'll plan to proceed with right shoulder arthroscopic evaluation with probable subacromial decompression, rotator cuff repair, possible biceps tenodesis. We will likely perform that as an outpatient procedure. Risks and benefits were discussed at length in layman's terms.
[~2023-04-19] MED LIST: DEXAMETHASONE SOD PHOSPHATE 4 MG/ML 1 ML VIAL IV ONE; HYDROmorphone 0.5 MG/0.5 ML SYRINGE IVP PRN; LIDOCAINE 1% (10MG/ML) FOR IV START INTRADERMA PRN; METOCLOPRAMIDE 5 MG/ML 2 ML VIAL IVP PRN; MIDAZOLAM 2 MG/2 ML VIAL IV PRN; ONDANSETRON 4 MG/2 ML VIAL IVP ONE; ceFAZolin 3 GM in SODIUM CHLORIDE 0.9% 100 ML IVPB PRN; fentaNYL (PF) 50 MCG/ML 2 ML AMP IVP PRN
[2023-04-19 06:28] VITALS: BP 114/69; PULSE 69; RESP 20; TEMP 97.6
[2023-04-19] MEDS: LACTATED RINGERS 1,000 ML IV SCH ×2 (06:45→07:10)
[2023-04-19 06:52] LABS: Glucose,Whole Blood 390 mg/dL (70-110)
== END ==
LOC: OR 05:33
PROVIDERS: ATTEND Orthopaedic Surgery
DX: M75.41 Impingement syndrome of right shoulder (principal)

== ENCOUNTER 2023-07-21 13:28 | Emergency (ER) | payer MEDICARE ==
[2023-07-21 13:34] VITALS: RESP 18
[2023-07-21] MEDS ORDERED: ONDANSETRON 4 MG/2 ML VIAL IVP STA (14:38)
[2023-07-21] MEDS ORDERED: SODIUM CHLORIDE 0.9% 1,000 ML IV STA (14:38)
[2023-07-21] MEDS ORDERED: KETOROLAC 15 MG/ML 1 ML VIAL IVP STA (14:38)
[2023-07-21] MEDS ORDERED: MORPHINE SULFATE 4 MG/ML SYRINGE IVP STA (14:39)
--- NOTE | 2023-07-21 14:49 | ED ---
General Adult HPI - General Chief complaint: Back Pain/Injury Stated complaint: L Back Pain Time Seen by Provider: 07/21/23 14:01 Source: patient, RN notes reviewed, old records reviewed Mode of arrival: ambulatory Limitations: no limitations - History of Present Illness Initial comments: Patient is a 52-year-old male who presents emergency Department complaining of left flank pain. Patient is complaining of pain located in the left side of his lower back with some radiation around the left flank. Concern for possible kidney involvement. Worse with movement. Has been present for 2 days. Denies any nausea, vomiting, diarrhea, constipation. Still passing flatus. Denies any dysuria, hematuria. Denies any fevers or chills. No acute complaints at this time. States 2 days ago he was working on his car, and woke up yesterday morning with the discomfort. Presents for further evaluation at this time. Denies any obvious trauma.No urinary or bowel incontinence or retention. No saddle anesthesias. No paralysis of lower extremity is. - Related Data Home Medications Medication Instructions Recorded Confirmed Albuterol Inhaler [Ventolin Hfa 2 puff INHALATION RT-QID PRN 07/04/21 04/16/23 Inhaler] Citalopram Hydrobromide [CeleXA] 40 mg PO DAILY 07/04/21 04/16/23 Pioglitazone [Actos] 30 mg PO DAILY 07/04/21 04/16/23 Propranolol HCl 80 mg PO DAILY 07/04/21 04/16/23 Rivastigmine Tartrate 1.5 mg PO DAILY 07/04/21 04/16/23 [Rivastigmine] Rivastigmine Tartrate 3 mg PO HS 07/04/21 04/16/23 [Rivastigmine] Verapamil HCl [Verapamil ER] 120 mg PO HS 07/04/21 04/16/23 lisinopriL [Zestril] 2.5 mg PO DAILY 07/04/21 04/16/23 traZODone HCL 150 mg PO HS 07/04/21 04/16/23 Budesonide-Formot 160-4.5 Mcg 2 puff INHALATION RT-HS 12/06/21 04/16/23 [Symbicort 160-4.5 Mcg Inhaler] Butalb/APAP/Caff 50-325-40Mg 1 tab PO Q8H PRN 12/06/21 04/16/23 [Fioricet 50-325-40] metFORMIN HCL 500 mg PO BID 12/06/21 04/16/23 Aspirin 81 mg PO DAILY 04/16/23 04/16/23 Atorvastatin [Lipitor] 20 mg PO HS 04/16/23 04/16/23 Semaglutide [Rybelsus] 7 mg PO DAILY 04/16/23 04/16/23 Unk [place] 3 1 tab PO DAILY 04/16/23 04/16/23 Previous Rx's Medication Instructions Recorded Glimepiride [Amaryl] 2 mg PO AC-BID #0 07/06/21 Ondansetron Odt [Zofran Odt] 4 mg PO Q8HR PRN #10 tab 12/06/21 Cyclobenzaprine [Flexeril] 5 mg PO TID PRN 5 Days #15 tablet 07/21/23 Lidocaine 5% Patch [Lidoderm 5% 1 patch TOPICAL DAILY PRN 14 Days 07/21/23 Patch] #14 patch Allergies Allergy/AdvReac Type Severity Reaction Status Date / Time No Known Allergies Allergy Verified 07/21/23 13:30 Review of Systems ROS Statement: Those systems with pertinent positive or pertinent negative responses have been documented in the HPI. Review of Systems: CONST: Denies fever EYES: Denies blurry vision ENT: Denies nasal congestion C/V: Denies Chest pain RESP: Denies shortness of breath GI: Denies abdominal pain : Denies dysuria SKIN: Denies rash. MSK: Left lower back pain with radiation on the left flank. NEURO: Denies headache ROS Other: All systems not noted in ROS Statement are negative. Past Medical History Past Medical History: COPD, Dementia, Diabetes Mellitus, Hyperlipidemia, Hypertension, Memory Impairment, Respiratory Disorder, Sleep Apnea/CPAP/BIPAP, Syncope, Vascular Disorder Additional Past Medical History / Comment(s): chronic migraines, just dx. w/early alzheimer's,hx dizzy spells ( when up on ladders), concussion 05/20/15 from fall, obstructive sleep apnea wears CPAP, Wernicke encephalopathy, History of Any Multi-Drug Resistant Organisms: None Reported Past Surgical History: Tonsillectomy Additional Past Surgical History / Comment(s): Left elbow open reduction internal fixation, hemorrhoidectomy, colonscopy Past Anesthesia/Blood Transfusion Reactions: No Reported Reaction Past Psychological History: Anxiety, Depression Smoking Status: Current every day smoker Past Alcohol Use History: Occasional Past Drug Use History: None Reported, Marijuana - Past Family History Father Additional Family Medical History / Comment(s): Father at age 69 from bladder ca, with history of vasular dementia Mother Family Medical History: Diabetes Mellitus Additional Family Medical History / Comment(s): open heart in her 60s Brother(s) Additional Family Medical History / Comment(s): Patient has 2 brothers that are healthy. He does not have any sisters. General Exam - General Exam Comments Initial Comments: General: Appears in no acute distress. HEAD: Normal with no signs of head trauma. EYES: PERRLA, EOMI, conjunctiva normal, no discharge. ENT: Hearing grossly intact, normal oropharynx. RESPIRATORY: Clear breath sounds bilaterally. No wheezes, rales, or rhonchi. C/V: Regular rate and rhythm. S1 and S2 auscultated, peripheral pulses 2+ and intact throughout ABD: Abd is soft, nontender, nondistended. CVA tenderness to percussion. No guarding. No rebound tenderness. No peritoneal signs. Patient does have left flank tenderness as well. EXT: Normal range of motion, no obvious deformity. No midline lumbar spine tenderness palpation. Patient does have paraspinal muscle tenderness palpation of the left mid lumbar spine, with radiation around the left flank. SKIN: No rashes or lesions observed on exposed skin. NEURO: Alert and oriented 4. Limitations: no limitations Course Vital Signs 07/21/23 13:30 Temperature 98.3 F Pulse Rate 71 Respiratory 18 Rate Blood Pressure 154/82 O2 Sat by Pulse 97 Oximetry Medical Decision Making - Medical Decision Making Was pt. sent in by a medical professional or institution (, PA, M[employer], urgent care, hospital, or care home...) When possible be specific @ -No Did you speak to anyone other than the patient for history (EMS, parent, family, police, friend...)? What history was obtained from this source @ -No Did you review nursing and triage notes (agree or disagree)? Why? @ -I reviewed and agree with nursing and triage notes Were old charts reviewed (outside hosp., previous admission, EMS record, old EKG, old radiological studies, urgent care reports/EKG's, care home records)? Report findings @ -No old charts were reviewed Differential Diagnosis (chest pain, altered mental status, abdominal pain women, abdominal pain men, vaginal bleeding, weakness, fever, dyspnea, syncope, headache, dizziness, GI bleed, back pain, seizure, CVA, palpatations, mental health, musculoskeletal)? @ -Differential Abdominal Pain Men: Appendicitis, cholecystitis, diverticulosis, ischemic bowel, pancreatitis, hepatitis, UTI, gastroenteritis, AAA, incarcerated hernia, bowel obstruction, constipation, inflammatory bowel, hepatitis, peptic ulcer disease, splenic infarction, perforated viscus, testicular torsion, this is not meant to be an all-inclusive list Differential Musculoskeletal Muscular strain, contusion, ligament sprain, fracture, arthritis, septic arthritis, bursitis, cellulitis, muscle spasm, nerve compression, DVT, arterial occlusion, herpes zoster, electrolyte abnormality, tumor.... This is not meant to be in all inclusive list EKG interpreted by me (3pts min.). @ -None done X-rays interpreted by me (1pt min.). @ -None done CT interpreted by me (1pt min.). @ -CT imaging negative for any obvious traumatic injury or acute traumatic process. U/S interpreted by me (1pt. min.). @ -None done What testing was considered but not performed or refused? (CT, X-rays, U/S, labs)? Why? @ -None What meds were considered but not given or refused? Why? @ -None Did you discuss the management of the patient with other professionals (professionals i.e. , PA, [employer], lab, RT, psych nurse, health social work professor, mining technician, teacher, commissioned police officer, pillowcase cleaner)? Give summary @ -No Was smoking cessation discussed for >3mins.? @ -No Was critical care preformed (if so, how long)? @ -No Were there social determinants of health that impacted care today? How? (Homelessness, low income, unemployed, alcoholism, drug addiction, transportation, low edu. Level, literacy, decrease access to med. care, senior living, rehab)? @ -No Was there de-escalation of care discussed even if they declined (Discuss DNR or withdrawal of care, Hospice)? DNR status @ -No What co-morbidities impacted this encounter? (DM, HTN, Smoking, COPD, CAD, Cancer, CVA, ARF, Chemo, Hep., AIDS, mental health diagnosis, sleep apnea, morbi d obesity)? @ -None Was patient admitted / discharged? Hospital course, mention meds given and route, prescriptions, significant lab abnormalities, going to OR and other pertinent info. @ -Based on patient's presentation and physical exam, presents with left flank pain. He is concerned for possible kidney involvement. He has no urinary co mplaints at this time. Could be muscle skeletal nature as well. We'll obtain abdominal laboratory studies, urine studies, as well as CT and pelvis without contrast and CT lumbar spine. Patient was in agreement this plan. No other acute complaint at this time. Vital signs within acceptable limits. We will administer IV Toradol, morphine, Zofran as well as IV fluids for symptoms.No red flag symptoms suggestive of cauda equina syndrome. Patient's laboratory studies are unremarkable. Patient is mildly hyperglycemic but no evidence of DKA. Kidney function within acceptable limits. Imaging negative for any obvious injury. I discussed results with the patient. He is feeling improved. Likely suffered a back muscle strain. He'll be discharged home with some muscle relaxers and lidocaine patches. Patient was in agreement this plan. Strict return precautions discussed. No concern for cauda equina syndrome at this time. I will provide the patient with a prescription for lidocaine patch, Flexeril. I instructed the patient to follow up with their PCP in the next 1-3 days. I explained that the patient should return to the emergency department if they exp erience any worsening symptoms. Strict return precautions were discussed with the patient. The patient expressed understanding of these instructions. I answered all questions that the patient had. The patient was discharged home in good condition with their prescriptions and follow up information. Undiagnosed new problem with uncertain prognosis? @ -No Drug Therapy requiring intensive monitoring for toxicity (Heparin, Nitro, Insulin, Cardizem)? @ -No Were any procedures done? @ -No Diagnosis/symptom? @ -Low-back strain Acute, or Chronic, or Acute on Chronic? @ -Acute Uncomplicated (without systemic symptoms) or Complicated (systemic symptoms)? @ -Uncomplicated Side effects of treatment? @ -none Exacerbation, Progression, or Severe Exacerbation] @ -no Poses a threat to life or bodily function? @ -no - Lab Data Result diagrams: 07/21/23 14:47 07/21/23 14:47 Lab Results 07/21/23 07/21/23 07/21/23 Range/Units 14:47 14:47 14:47 WBC 8.6 (3.8-10.6) k/uL RBC 5.08 (4.30-5.90) m/uL Hgb 16.3 (13.0-17.5) gm/dL Hct 46.1 (39.0-53.0) % MCV 90.7 (80.0-100.0) fL MCH 32.1 (25.0-35.0) pg MCHC 35.4 (31.0-37.0) g/dL RDW 13.1 (11.5-15.5) % Plt Count 202 (150-450) k/uL MPV 9.0 Neutrophils % 61 % Lymphocytes % 28 % Monocytes % 6 % Eosinophils % 3 % Basophils % 0 % Neutrophils # 5.2 (1.3-7.7) k/uL Lymphocytes # 2.4 (1.0-4.8) k/uL Monocytes # 0.5 (0-1.0) k/uL Eosinophils # 0.3 (0-0.7) k/uL Basophils # 0.0 (0-0.2) k/uL Sodium 135 L (137-145) mmol/L Potassium 4.9 (3.5-5.1) mmol/L Chloride 104 (98-107) mmol/L Carbon Dioxide 21 L (22-30) mmol/L Anion Gap 10 mmol/L BUN 23 H (9-20) mg/dL Creatinine 0.75 (0.66-1.25) mg/dL Est GFR (CKD-EPI)AfAm >90 (>60 ml/min/1.73 sqM) Est GFR (CKD-EPI)NonAf >90 (>60 ml/min/1.73 sqM) Glucose 309 H (74-99) mg/dL Calcium 9.8 (8.4-10.2) mg/dL Total Bilirubin 0.5 (0.2-1.3) mg/dL AST 27 (17-59) U/L ALT 37 (4-49) U/L Alkaline Phosphatase 104 (38-126) U/L Total Protein 6.8 (6.3-8.2) g/dL Albumin 4.3 (3.5-5.0) g/dL Amylase 44 (30-110) U/L Lipase 129 (23-300) U/L Urine Color Colorless Urine Appearance Clear (Clear) Urine pH 5.0 (5.0-8.0) Ur Specific [place] 1.032 (1.001-1.035) Urine Protein Negative (Negative) Urine Glucose (UA) 4+ H (Negative) Urine Ketones Negative (Negative) Urine Blood Negative (Negative) Urine Nitrite Negative (Negative) Urine Bilirubin Negative (Negative) Urine Urobilinogen <2.0 (<2.0) mg/dL Ur Leukocyte Esterase Negative (Negative) Disposition Clinical Impression: Low back strain Disposition: HOME SELF-CARE Condition: Good Instructions (If sedation given, give patient instructions): Acute Low Back Pain (ED) Prescriptions: Cyclobenzaprine [Flexeril] 5 mg PO TID PRN 5 Days #15 tablet PRN Reason: Pain Lidocaine 5% Patch [Lidoderm 5% Patch] 1 patch TOPICAL DAILY PRN 14 Days #14 patch PRN Reason: Pain Is patient prescribed a controlled substance at d/c from ED?: No Referrals: Francis Turner [Primary Care Provider] - 1-2 days Time of Disposition: 15:52
[2023-07-21 15:06] LABS: Basophils % (A) 0 %; Eosinophils # (A) 0.3 k/uL (0-0.7); Eosinophils % (A) 3 %; HCT 46.1 % (39.0-53.0); HGB 16.3 gm/dL (13.0-17.5); Lymphocytes # (A) 2.4 k/uL (1.0-4.8); Lymphocytes % (A) 28 %; MCH 32.1 pg (25.0-35.0); MCHC 35.4 g/dL (31.0-37.0); MCV 90.7 fL (80.0-100.0); Monocytes # (A) 0.5 k/uL (0-1.0); Monocytes % (A) 6 %; Neutrophils # (A) 5.2 k/uL (1.3-7.7); Neutrophils % (A) 61 %; Platelet Count 202 k/uL (150-450); RBC 5.08 m/uL (4.30-5.90); RDW 13.1 % (11.5-15.5); WBC 8.6 k/uL (3.8-10.6)
[2023-07-21 15:07] LABS: Appearance,Urine Clear (Clear); Bilirubin,Urine Negative (Negative); Blood,Urine Negative (Negative); Color,Urine Colorless; Glucose,Urine (UA) 4+ (Negative); Ketones,Urine Negative (Negative); Leukocyte Esterase,Urine Negative (Negative); Nitrite,Urine Negative (Negative); Protein,Urine Negative (Negative); Specific Gravity,Urine 1.032 (1.001-1.035); Urobilinogen,Urine <2.0 mg/dL (<2.0)
[2023-07-21 15:22] LABS: ALT 37 U/L (4-49); African American GFR (CKD) >90 (>60 ml/min/1.73 sqM); Albumin 4.3 g/dL (3.5-5.0); Amylase 44 U/L (30-110); Anion Gap 10 mmol/L; Blood Urea Nitrogen 23 mg/dL (9-20); Calcium 9.8 mg/dL (8.4-10.2); Carbon Dioxide 21 mmol/L (22-30); Chloride 104 mmol/L (98-107); Glucose 309 mg/dL (74-99); Lipase 129 U/L (23-300); Non-African American GFR(CKD) >90 (>60 ml/min/1.73 sqM); Sodium 135 mmol/L (137-145); Total Bilirubin 0.5 mg/dL (0.2-1.3); Total Protein 6.8 g/dL (6.3-8.2)
--- NOTE | 2023-07-21 15:45 | CT ---
EXAMINATION TYPE: CT abdomen pelvis wo con CT DLP: 2476.4 mGycm, Automated exposure control for dose reduction was used. DATE OF EXAM: 07/21/2023 3:37 PM COMPARISON: CT abdomen pelvis most recent from CLINICAL INDICATION:Male, 52 years old with history of abdominal pain; LEFT FLANK PAIN NO INJURY TECHNIQUE: Axial CT of the abdomen and pelvis. Sagittal and coronal reformats were created on a [employer] workstation. Contrast used:None. Oral contrast used: without Oral Contrast (none if empty) FINDINGS: LOWER CHEST: Unremarkable ABDOMEN LIVER: Unremarkable GALLBLADDER AND BILE DUCTS: Unremarkable. PANCREAS: Unremarkable. SPLEEN: Unremarkable. ADRENAL GLANDS: Unremarkable. KIDNEYS AND URETERS: No evidence of hydronephrosis or renal calculus. The ureters are unremarkable. PELVIS BLADDER: Unremarkable REPRODUCTIVE: Unremarkable. ABDOMEN & PELVIS STOMACH AND BOWEL: Stomach and duodenum are unremarkable. No evidence of bowel obstruction. PERITONEUM/RETROPERITONEUM: No evidence of pneumoperitoneum or free fluid. VASCULATURE: Mild atherosclerotic calcifications are present throughout the abdominal aorta and its b ranches. No evidence of aortic aneurysm. MUSCULOSKELETAL: No acute osseous abnormalities LYMPH NODES: No gross evidence for lymphadenopathy. SOFT TISSUE/ABDOMINAL WALL: Fat filled umbilical hernia. IMPRESSION: No acute process.
--- NOTE | 2023-07-21 15:47 | CT ---
EXAMINATION TYPE: CT lumbar spine wo con CT DLP: 2476.4 mGycm, Automated exposure control for dose reduction was used. DATE OF EXAM: 07/21/2023 3:36 PM COMPARISON: . CLINICAL INDICATION:Male, 52 years old with history of pain; PHH, LEFT FLANK PAIN NO INJURY TECHNIQUE: Multiple axial images were obtained from the midportion of T11 through the sacroiliac natalee nts. Soft tissue and bone windows in coronal and sagittal planes were obtained and reviewed. 3-D ref ormats of the bones were created on a separate workstation and submitted for review. Contrast used:None. Oral contrast used: none. FINDINGS: Alignment: There are 5 lumbar type vertebral bodies within normal alignment. Bone: No evidence of fracture is identified. Degenerative changes: Mild multilevel degenerative changes of the lumbar spine are appreciated with f acet joint arthropathy and osteophytosis. There is no evidence of significant spinal canal narrowing. There is noted to moderate neural foraminal narrowing identified bilaterally, most pronounced at the L4-L5 level. IMPRESSION: 1. No evidence for spinal fracture. 2. Multilevel degenerative disc changes with up to moderate neural foraminal narrowing. No significan t spinal canal narrowing.
[2023-07-21 15:49] LABS: AST 27 U/L (17-59); Alkaline Phosphatase 104 U/L (38-126); Potassium 4.9 mmol/L (3.5-5.1)
[2023-07-21 16:51] VITALS: BP 148/73; PULSE 74; TEMP 98.2
== END 2023-07-21 16:47 | disposition home or self-care (01) ==
LOC: EC 13:28
DX: S39.012A Strain of muscle, fascia and tendon of lower back, initial encounter (principal); M47.816 Spondylosis without myelopathy or radiculopathy, lumbar region; M48.061 Spinal stenosis, lumbar region without neurogenic claudication; J44.9 Chronic obstructive pulmonary disease, unspecified; E11.9 Type 2 diabetes mellitus without complications; I10 Essential (primary) hypertension; G47.30 Sleep apnea, unspecified; E78.5 Hyperlipidemia, unspecified; F41.9 Anxiety disorder, unspecified; F32.A Depression, unspecified; F17.200 Nicotine dependence, unspecified, uncomplicated; F12.90 Cannabis use, unspecified, uncomplicated; Z79.82 Long term (current) use of aspirin; Z79.84 Long term (current) use of oral hypoglycemic drugs; Z79.899 Other long term (current) drug therapy; Z79.51 Long term (current) use of inhaled steroids; X58.XXXA Exposure to other specified factors, initial encounter
CPT/HCPCS: 36415; 80053; 82150; 83690; 85025; 81003; 83036; 72131; 74176; 99284; 96374; 96375; 96361; J2270; J1885

== ENCOUNTER 2023-11-28 10:06 | Emergency (ER) | payer MEDICARE ==
[2023-11-28 10:10] LABS: Glucose,Whole Blood 388 mg/dL (70-110)
--- NOTE | 2023-11-28 10:19 | ED ---
Overdose HPI - General Stated Complaint: Overdose, Mental Health Time Seen by Provider: 11/28/23 10:10 - History of Present Illness Initial Comments: 53-year-old male presents emergency department after an overdose on an unknown amount of medications. Patient got into an argument with his yesterday. She states that he left the house and was heavily drinking. He also reports that he overdosed on an unknown medication in an attempt to harm himself. Originally the patient cannot remember if the medication was prescribed or not. After reevaluation the patient does admit that it was a handful of [id number] sleeping pills. He also admits that he drink quite heavily. He was depressed and wanted to . He does have a history of overdose attempt in the past. He has been previously hospitalized for his mental health. does present to bedside and petitioned the patient. He denies any homicidal ideations. No hallucinations. No illicit drug use. No other alleviating, precipitating modifying factors - Related Data Home Medications Medication Instructions Recorded Confirmed Propranolol HCl 80 mg PO DAILY 07/04/21 11/28/23 Rivastigmine Tartrate 1.5 mg PO DAILY 07/04/21 11/28/23 [Rivastigmine] Rivastigmine Tartrate 3 mg PO HS 07/04/21 11/28/23 [Rivastigmine] lisinopriL [Zestril] 2.5 mg PO DAILY 07/04/21 11/28/23 traZODone HCL 150 mg PO HS 07/04/21 11/28/23 metFORMIN HCL 500 mg PO BID 12/06/21 11/28/23 Atorvastatin [Lipitor] 20 mg PO HS 04/16/23 11/28/23 Semaglutide [Rybelsus] 7 mg PO AC-[id number] 04/16/23 11/28/23 Citalopram Hydrobromide [CeleXA] 30 mg PO DAILY 11/28/23 11/28/23 Glimepiride [Amaryl] 2 mg PO BID 11/28/23 11/28/23 Insulin Glargine,Hum.rec.anlog 10 units SQ HS 11/28/23 11/28/23 [Lantus Solostar Pen] Verapamil HCl [Calan] 120 mg PO HS 11/28/23 11/28/23 Allergies Allergy/AdvReac Type Severity Reaction Status Date / Time No Known Allergies Allergy Verified 11/28/23 11:02 Review of Systems ROS Statement: Those systems with pertinent positive or pertinent negative responses have been documented in the HPI. ROS Other: All systems not noted in ROS Statement are negative. Past Medical History Past Medical History: COPD, Dementia, Diabetes Mellitus, Hyperlipidemia, Hypertension, Memory Impairment, Respiratory Disorder, Sleep Apnea/CPAP/BIPAP, Syncope, Vascular Disorder Additional Past Medical History / Comment(s): chronic migraines, just dx. w/early alzheimer's,hx dizzy spells ( when up on ladders), concussion 05/20/15 from fall, obstructive sleep apnea wears CPAP, Wernicke encephalopathy, History of Any Multi-Drug Resistant Organisms: None Reported Past Surgical History: Tonsillectomy Additional Past Surgical History / Comment(s): Left elbow open reduction internal fixation, hemorrhoidectomy, colonscopy Past Anesthesia/Blood Transfusion Reactions: No Reported Reaction Past Psychological History: Anxiety, Depression Smoking Status: Current every day smoker Past Alcohol Use History: Occasional Past Drug Use History: None Reported, Marijuana - Past Family History Father Additional Family Medical History / Comment(s): Father at age 69 from bladder ca, with history of vasular dementia Mother Family Medical History: Diabetes Mellitus Additional Family Medical History / Comment(s): open heart in her 60s Brother(s) Additional Family Medical History / Comment(s): Patient has 2 brothers that are healthy. He does not have any sisters. General Exam Limitations: altered mental status General appearance: lethargic Head exam: Present: atraumatic Eye exam: Present: normal appearance, PERRL, EOMI. Absent: scleral icterus, conjunctival injection, periorbital swelling ENT exam: Present: normal exam, mucous membranes moist Neck exam: Present: normal inspection Respiratory exam: Present: normal lung sounds bilaterally. Absent: respiratory distress, wheezes, rales, rhonchi, stridor Cardiovascular Exam: Present: regular rate, normal rhythm, normal heart sounds. Absent: systolic murmur, diastolic murmur, rubs, gallop, clicks GI/Abdominal exam: Present: soft, normal bowel sounds. Absent: distended, tenderness, guarding, rebound, rigid Extremities exam: Present: normal inspection, full ROM, normal capillary refill. Absent: tenderness, pedal edema, joint swelling, calf tenderness Neurological exam: Present: altered Psychiatric exam: Present: flat affect, suicidal ideation Skin exam: Present: warm, dry, intact, normal color. Absent: rash Course Vital Signs 11/28/23 11/28/23 11/28/23 10:09 11:21 12:00 Temperature 98.4 F Pulse Rate 73 77 71 Respiratory 14 16 16 Rate Blood Pressure 123/74 121/78 125/72 O2 Sat by Pulse 94 L 94 L 93 L Oximetry 11/28/23 11/28/23 11/28/23 13:59 15:57 18:32 Temperature Pulse Rate 69 75 79 Respiratory 18 18 18 Rate Blood Pressure 121/69 129/78 118/73 O2 Sat by Pulse 94 L 93 L 96 Oximetry 11/28/23 11/28/23 11/29/23 19:48 21:11 02:09 Temperature Pulse Rate 77 75 64 Respiratory 20 20 18 Rate Blood Pressure 116/69 127/77 100/62 O2 Sat by Pulse 96 98 96 Oximetry 11/29/23 11/29/23 05:30 06:43 Temperature Pulse Rate 64 64 Respiratory 18 18 Rate Blood Pressure 125/81 112/69 O2 Sat by Pulse 97 98 Oximetry Medical Decision Making - Medical Decision Making Was pt. sent in by a medical professional or institution ([facility], MACHINE SKIVER, urgent care, hospital, or penitentiary...) When possible be specific @ -No Did you speak to anyone other than the patient for history (EMS, parent, family, police, friend...)? What history was obtained from this source @ -Spoke with EMS and the for history Did you review nursing and triage notes (agree or disagree)? Why? @ -I reviewed and agree with nursing and triage notes Were old charts reviewed (outside hosp., previous admission, EMS record, old EKG, old radiological studies, urgent care reports/EKG's, penitentiary records)? Report findings @ -No old charts were reviewed Differential Diagnosis (chest pain, altered mental status, abdominal pain women, abdominal pain men, vaginal bleeding, weakness, fever, dyspnea, syncope, headache, dizziness, GI bleed, back pain, seizure, CVA, palpatations, mental health, musculoskeletal)? @ -Differential Mental Health Depression, anxiety, bipolar, psychosis, schizophrenia, borderline personality, situational depression, adjustment disorder, behavioral disorder, brain tumor, malingering, substance abuse, encephalopathy, medication reaction, dementia, hypothyroidism, degenerative neurologic disorder, lupus.... This is not meant to be all-inclusive list EKG interpreted by me (3pts min.). @ -Yes and demonstrates sinus rhythm with a rate of 72. [place] interval 144. QRS 108. QTc of 426. No acute ST segment elevations or depressions X-rays interpreted by me (1pt min.). @ -None done CT interpreted by me (1pt min.). @ -None done U/S interpreted by me (1pt. min.). @ -None done What testing was considered but not performed or refused? (CT, X-rays, U/S, labs)? Why? @ -None What meds were considered but not given or refused? Why? @ -None Did you discuss the management of the patient with other professionals (professionals i.e. , PA, MACHINE SKIVER, lab, RT, psych nurse, secondary social studies teacher, piano case and bench assembler, teacher, foreign policy officer, patient case coordinator)? Give summary @ -Spoke with the EPS contact, Marinao Was smoking cessation discussed for >3mins.? @ -No Was critical care preformed (if so, how long)? @ -No Were there social determinants of health that impacted care today? How? (Homelessness, low income, unemployed, alcoholism, drug addiction, transportation, low edu. Level, literacy, decrease access to med. care, snf, rehab)? @ -No Was there de-escalation of care discussed even if they declined (Discuss DNR or withdrawal of care, Hospice)? DNR status @ -No What co-morbidities impacted this encounter? (DM, HTN, Smoking, COPD, CAD, Cancer, CVA, ARF, Chemo, Hep., AIDS, mental health diagnosis, sleep apnea, morbid obesity)? @ -Depression Was patient admitted / discharged? Hospital course, mention meds given and route, prescriptions, significant lab abnormalities, going to OR and other pertinent info. @ -Upon arrival patient was placed into room 1. Thorough history and physical exam was performed. IV is established. Laboratory studies are conducted. Patient is reevaluated upon multiple occasions. He does become more alert. Admits that he took a handful of sleeping pills. Patient does return to his baseline. He is evaluated by EPS. He does require hospitalization. I do feel out a certification on the patient. He is currently pending transfer to a psychiatric facility at this time Undiagnosed new problem with uncertain prognosis? @ -No Drug Therapy requiring intensive monitoring for toxicity (Heparin, Nitro, Insulin, Cardizem)? @ -No Were any procedures done? @ -No Diagnosis/symptom? @ -Acute depression, acute intentional overdose, suicidal attempt Acute, or Chronic, or Acute on Chronic? @ -Acute Uncomplicated (without systemic symptoms) or Complicated (systemic symptoms)? @ -Complicated Side effects of treatment? @ -No Exacerbation, Progression, or Severe Exacerbation? @ -No Poses a threat to life or bodily function? How? (Chest pain, [place], [place], pneumonia, PE, COPD, DKA, ARF, appy, cholecystitis, CVA, Diverticulitis, Homicidal, Suicidal, threat to staff... and all critical care pts) @ -Yes patient is actively trying to harm himself - Lab Data Result diagrams: 11/28/23 10:15 11/28/23 10:15 Lab Results 11/28/23 11/28/23 11/28/23 Range/Units 10:08 10:15 10:15 WBC 6.6 (3.8-10.6) k/uL RBC 5.09 (4.30-5.90) m/uL Hgb 15.7 (13.0-17.5) gm/dL Hct 46.4 (39.0-53.0) % MCV 91.2 (80.0-100.0) fL MCH 31.0 (25.0-35.0) pg MCHC 33.9 (31.0-37.0) g/dL RDW 13.2 (11.5-15.5) % Plt Count 191 (150-450) k/uL MPV 9.0 Neutrophils % 65 % Lymphocytes % 22 % Monocytes % 8 % Eosinophils % 3 % Basophils % 1 % Neutrophils # 4.3 (1.3-7.7) k/uL Lymphocytes # 1.4 (1.0-4.8) k/uL Monocytes # 0.5 (0-1.0) k/uL Eosinophils # 0.2 (0-0.7) k/uL Basophils # 0.1 (0-0.2) k/uL Sodium 135 L (137-145) mmol/L Potassium 4.7 (3.5-5.1) mmol/L Chloride 106 (98-107) mmol/L Carbon Dioxide 20 L (22-30) mmol/L Anion Gap 9 mmol/L BUN 14 (9-20) mg/dL Creatinine 1.13 (0.66-1.25) mg/dL Est GFR (CKD-EPI)AfAm 85 (>60 ml/min/1.73 sqM) Est GFR (CKD-EPI)NonAf 73 (>60 ml/min/1.73 sqM) Glucose 384 H (74-99) mg/dL POC Glucose (mg/dL) 388 H (70-110) mg/dL POC Glu [employer] ID Hay Viveros Calcium 9.2 (8.4-10.2) mg/dL Total Bilirubin 0.7 (0.2-1.3) mg/dL AST 23 (17-59) U/L ALT 34 (4-49) U/L Alkaline Phosphatase 117 (38-126) U/L Total Protein 6.9 (6.3-8.2) g/dL Albumin 4.4 (3.5-5.0) g/dL TSH (0.465-4.680) mIU/L Urine Color Urine Appearance (Clear) Urine pH (5.0-8.0) Ur Specific [place] (1.001-1.035) Urine Protein (Negative) Urine Glucose (UA) (Negative) Urine Ketones (Negative) Urine Blood (Negative) Urine Nitrite (Negative) Urine Bilirubin (Negative) Urine Urobilinogen (<2.0) mg/dL Ur Leukocyte Esterase (Negative) Salicylates <1.0 mg/dL Urine Opiates Screen (NotDetected) Ur Oxycodone Screen (NotDetected) Urine Methadone Screen (NotDetected) Acetaminophen <10.0 ug/mL Ur Barbiturates Screen (NotDetected) U Tricyclic Antidepress (NotDetected) Ur Phencyclidine Scrn (NotDetected) Ur Amphetamines Screen (NotDetected) U Methamphetamines Scrn (NotDetected) U Benzodiazepines Scrn (NotDetected) Urine Cocaine Screen (NotDetected) U Marijuana (THC) Screen (NotDetected) Serum Alcohol <10 mg/dL Influenza Type A (PCR) (Not Detectd) Influenza Type B (PCR) (Not Detectd) RSV (PCR) (Not Detectd) SARS-CoV-2 (PCR) (Not Detectd) 11/28/23 11/28/23 11/28/23 Range/Units 10:15 10:23 10:23 WBC (3.8-10.6) k/uL RBC (4.30-5.90) m/uL Hgb (13.0-17.5) gm/dL Hct (39.0-53.0) % MCV (80.0-100.0) fL MCH (25.0-35.0) pg MCHC (31.0-37.0) g/dL RDW (11.5-15.5) % Plt Count (150-450) k/uL MPV Neutrophils % % Lymphocytes % % Monocytes % % Eosinophils % % Basophils % % Neutrophils # (1.3-7.7) k/uL Lymphocytes # (1.0-4.8) k/uL Monocytes # (0-1.0) k/uL Eosinophils # (0-0.7) k/uL Basophils # (0-0.2) k/uL Sodium (137-145) mmol/L Potassium (3.5-5.1) mmol/L Chloride (98-107) mmol/L Carbon Dioxide (22-30) mmol/L Anion Gap mmol/L BUN (9-20) mg/dL Creatinine (0.66-1.25) mg/dL Est GFR (CKD-EPI)AfAm (>60 ml/min/1.73 sqM) Est GFR (CKD-EPI)NonAf (>60 ml/min/1.73 sqM) Glucose (74-99) mg/dL POC Glucose (mg/dL) (70-110) mg/dL POC Glu [employer] ID Calcium (8.4-10.2) mg/dL Total Bilirubin (0.2-1.3) mg/dL AST (17-59) U/L ALT (4-49) U/L Alkaline Phosphatase (38-126) U/L Total Protein (6.3-8.2) g/dL Albumin (3.5-5.0) g/dL TSH 0.645 (0.465-4.680) mIU/L Urine Color Colorless Urine Appearance Clear (Clear) Urine pH 7.5 (5.0-8.0) Ur Specific [place] 1.029 (1.001-1.035) Urine Protein Negative (Negative) Urine Glucose (UA) 4+ H (Negative) Urine Ketones Negative (Negative) Urine Blood Negative (Negative) Urine Nitrite Negative (Negative) Urine Bilirubin Negative (Negative) Urine Urobilinogen <2.0 (<2.0) mg/dL Ur Leukocyte Esterase Negative (Negative) Salicylates mg/dL Urine Opiates Screen Not Detected (NotDetected) Ur Oxycodone Screen Not Detected (NotDetected) Urine Methadone Screen Not Detected (NotDetected) Acetaminophen ug/mL Ur Barbiturates Screen Not Detected (NotDetected) U Tricyclic Antidepress Not Detected (NotDetected) Ur Phencyclidine Scrn Not Detected (NotDetected) Ur Amphetamines Screen Not Detected (NotDetected) U Methamphetamines Scrn Not Detected (NotDetected) U Benzodiazepines Scrn Not Detected (NotDetected) Urine Cocaine Screen Not Detected (NotDetected) U Marijuana (THC) Screen Detected H (NotDetected) Serum Alcohol mg/dL Influenza Type A (PCR) (Not Detectd) Influenza Type B (PCR) (Not Detectd) RSV (PCR) (Not Detectd) SARS-CoV-2 (PCR) (Not Detectd) 11/28/23 11/28/23 11/28/23 Range/Units 14:27 17:22 20:22 WBC (3.8-10.6) k/uL RBC (4.30-5.90) m/uL Hgb (13.0-17.5) gm/dL Hct (39.0-53.0) % MCV (80.0-100.0) fL MCH (25.0-35.0) pg MCHC (31.0-37.0) g/dL RDW (11.5-15.5) % Plt Count (150-450) k/uL MPV Neutrophils % % Lymphocytes % % Monocytes % % Eosinophils % % Basophils % % Neutrophils # (1.3-7.7) k/uL Lymphocytes # (1.0-4.8) k/uL Monocytes # (0-1.0) k/uL Eosinophils # (0-0.7) k/uL Basophils # (0-0.2) k/uL Sodium (137-145) mmol/L Potassium (3.5-5.1) mmol/L Chloride (98-107) mmol/L Carbon Dioxide (22-30) mmol/L Anion Gap mmol/L BUN (9-20) mg/dL Creatinine (0.66-1.25) mg/dL Est GFR (CKD-EPI)AfAm (>60 ml/min/1.73 sqM) Est GFR (CKD-EPI)NonAf (>60 ml/min/1.73 sqM) Glucose (74-99) mg/dL POC Glucose (mg/dL) 283 H 404 H (70-110) mg/dL POC Glu [employer] ID Kamron Borrero Taylor Calcium (8.4-10.2) mg/dL Total Bilirubin (0.2-1.3) mg/dL AST (17-59) U/L ALT (4-49) U/L Alkaline Phosphatase (38-126) U/L Total Protein (6.3-8.2) g/dL Albumin (3.5-5.0) g/dL TSH (0.465-4.680) mIU/L Urine Color Urine Appearance (Clear) Urine pH (5.0-8.0) Ur Specific [place] (1.001-1.035) Urine Protein (Negative) Urine Glucose (UA) (Negative) Urine Ketones (Negative) Urine Blood (Negative) Urine Nitrite (Negative) Urine Bilirubin (Negative) Urine Urobilinogen (<2.0) mg/dL Ur Leukocyte Esterase (Negative) Salicylates mg/dL Urine Opiates Screen (NotDetected) Ur Oxycodone Screen (NotDetected) Urine Methadone Screen (NotDetected) Acetaminophen ug/mL Ur Barbiturates Screen (NotDetected) U Tricyclic Antidepress (NotDetected) Ur Phencyclidine Scrn (NotDetected) Ur Amphetamines Screen (NotDetected) U Methamphetamines Scrn (NotDetected) U Benzodiazepines Scrn (NotDetected) Urine Cocaine Screen (NotDetected) U Marijuana (THC) Screen (NotDetected) Serum Alcohol mg/dL Influenza Type A (PCR) Not Detected (Not Detectd) Influenza Type B (PCR) Not Detected (Not Detectd) RSV (PCR) Not Detected (Not Detectd) SARS-CoV-2 (PCR) Not Detected (Not Detectd) 11/28/23 Range/Units 21:51 WBC (3.8-10.6) k/uL RBC (4.30-5.90) m/uL Hgb (13.0-17.5) gm/dL Hct (39.0-53.0) % MCV (80.0-100.0) fL MCH (25.0-35.0) pg MCHC (31.0-37.0) g/dL RDW (11.5-15.5) % Plt Count (150-450) k/uL MPV Neutrophils % % Lymphocytes % % Monocytes % % Eosinophils % % Basophils % % Neutrophils # (1.3-7.7) k/uL Lymphocytes # (1.0-4.8) k/uL Monocytes # (0-1.0) k/uL Eosinophils # (0-0.7) k/uL Basophils # (0-0.2) k/uL Sodium (137-145) mmol/L Potassium (3.5-5.1) mmol/L Chloride (98-107) mmol/L Carbon Dioxide (22-30) mmol/L Anion Gap mmol/L BUN (9-20) mg/dL Creatinine (0.66-1.25) mg/dL Est GFR (CKD-EPI)AfAm (>60 ml/min/1.73 sqM) Est GFR (CKD-EPI)NonAf (>60 ml/min/1.73 sqM) Glucose (74-99) mg/dL POC Glucose (mg/dL) 294 H (70-110) mg/dL POC Glu [employer] ID Achatz, Mary Jane Calcium (8.4-10.2) mg/dL Total Bilirubin (0.2-1.3) mg/dL AST (17-59) U/L ALT (4-49) U/L Alkaline Phosphatase (38-126) U/L Total Protein (6.3-8.2) g/dL Albumin (3.5-5.0) g/dL TSH (0.465-4.680) mIU/L Urine Color Urine Appearance (Clear) Urine pH (5.0-8.0) Ur Specific [place] (1.001-1.035) Urine Protein (Negative) Urine Glucose (UA) (Negative) Urine Ketones (Negative) Urine Blood (Negative) Urine Nitrite (Negative) Urine Bilirubin (Negative) Urine Urobilinogen (<2.0) mg/dL Ur Leukocyte Esterase (Negative) Salicylates mg/dL Urine Opiates Screen (NotDetected) Ur Oxycodone Screen (NotDetected) Urine Methadone Screen (NotDetected) Acetaminophen ug/mL Ur Barbiturates Screen (NotDetected) U Tricyclic Antidepress (NotDetected) Ur Phencyclidine Scrn (NotDetected) Ur Amphetamines Screen (NotDetected) U Methamphetamines Scrn (NotDetected) U Benzodiazepines Scrn (NotDetected) Urine Cocaine Screen (NotDetected) U Marijuana (THC) Screen (NotDetected) Serum Alcohol mg/dL Influenza Type A (PCR) (Not Detectd) Influenza Type B (PCR) (Not Detectd) RSV (PCR) (Not Detectd) SARS-CoV-2 (PCR) (Not Detectd) Disposition Clinical Impression: Depression, Suicidal ideations, Intentional overdose Disposition: TRANSFER TO PSYCH HOSP/UNIT Condition: Serious Is patient prescribed a controlled substance at d/c from ED?: No Referrals: Francis Turner [Primary Care Provider] - 1-2 days
[2023-11-28 10:32] LABS: Basophils # (A) 0.1 k/uL (0-0.2); Basophils % (A) 1 %; Eosinophils # (A) 0.2 k/uL (0-0.7); Eosinophils % (A) 3 %; HCT 46.4 % (39.0-53.0); HGB 15.7 gm/dL (13.0-17.5); Lymphocytes # (A) 1.4 k/uL (1.0-4.8); Lymphocytes % (A) 22 %; MCHC 33.9 g/dL (31.0-37.0); MCV 91.2 fL (80.0-100.0); Monocytes # (A) 0.5 k/uL (0-1.0); Monocytes % (A) 8 %; Neutrophils # (A) 4.3 k/uL (1.3-7.7); Neutrophils % (A) 65 %; Platelet Count 191 k/uL (150-450); RBC 5.09 m/uL (4.30-5.90); RDW 13.2 % (11.5-15.5); WBC 6.6 k/uL (3.8-10.6)
[2023-11-28] MEDS: SODIUM CHLORIDE 0.9% 500 ML 500 ML IV STA (10:45)
[2023-11-28 10:54] LABS: ALT 34 U/L (4-49); AST 23 U/L (17-59); Acetaminophen <10.0 ug/mL; African American GFR (CKD) 85 (>60 ml/min/1.73 sqM); Albumin 4.4 g/dL (3.5-5.0); Alcohol <10 mg/dL; Alkaline Phosphatase 117 U/L (38-126); Anion Gap 9 mmol/L; Blood Urea Nitrogen 14 mg/dL (9-20); Calcium 9.2 mg/dL (8.4-10.2); Carbon Dioxide 20 mmol/L (22-30); Chloride 106 mmol/L (98-107); Glucose 384 mg/dL (74-99); Non-African American GFR(CKD) 73 (>60 ml/min/1.73 sqM); Potassium 4.7 mmol/L (3.5-5.1); Salicylate <1.0 mg/dL; Sodium 135 mmol/L (137-145); Total Bilirubin 0.7 mg/dL (0.2-1.3); Total Protein 6.9 g/dL (6.3-8.2)
[2023-11-28 11:20] VITALS: TEMP 98.4
[2023-11-28 12:50] LABS: Amphetamine Screen,Urine Not Detected (NotDetected); Barbiturate Screen,Urine Not Detected (NotDetected); Benzodiazepines Screen,Urine Not Detected (NotDetected); Cocaine Screen,Urine Not Detected (NotDetected); Methadone Screen, Urine Not Detected (NotDetected); Opiate Screen,Urine Not Detected (NotDetected); Oxycodone Screen, Urine Not Detected (NotDetected); Phencyclidine Screen,Urine Not Detected (NotDetected); Tricyclic Antidepressant,Urine Not Detected (NotDetected); Urn Cannabinoid Scrn Detected (NotDetected)
[2023-11-28 14:29] LABS: Glucose,Whole Blood 283 mg/dL (70-110)
[2023-11-28] MEDS: INSULIN REGULAR 100 UNIT/ML VIAL (IM/SQ) SQ ONE ×2 (14:42→20:34)
[2023-11-28 19:55] LABS: Appearance,Urine Clear (Clear); Bilirubin,Urine Negative (Negative); Blood,Urine Negative (Negative); Color,Urine Colorless; Glucose,Urine (UA) 4+ (Negative); Ketones,Urine Negative (Negative); Leukocyte Esterase,Urine Negative (Negative); Nitrite,Urine Negative (Negative); PH, Urine 7.5 (5.0-8.0); Protein,Urine Negative (Negative); Specific Gravity,Urine 1.029 (1.001-1.035); Urobilinogen,Urine <2.0 mg/dL (<2.0)
[2023-11-28 20:24] LABS: Glucose,Whole Blood 404 mg/dL (70-110)
[2023-11-28 21:53] LABS: Glucose,Whole Blood 294 mg/dL (70-110)
[2023-11-29 02:28] VITALS: PULSE 64; RESP 18
[2023-11-29 07:12] VITALS: BP 112/69
== END 2023-11-29 06:44 ==
LOC: EC 10:06
DX: T50.902A Poisoning by unspecified drugs, medicaments and biological substances, intentional self-harm, initial encounter (principal); F32.A Depression, unspecified; J44.9 Chronic obstructive pulmonary disease, unspecified; E11.9 Type 2 diabetes mellitus without complications; E78.5 Hyperlipidemia, unspecified; I10 Essential (primary) hypertension; F41.9 Anxiety disorder, unspecified; G30.9 Alzheimer's disease, unspecified; F02.83 Dementia in other diseases classified elsewhere, unspecified severity, with mood disturbance; F17.200 Nicotine dependence, unspecified, uncomplicated; F12.90 Cannabis use, unspecified, uncomplicated; Z20.822 Contact with and (suspected) exposure to COVID-19; Z79.84 Long term (current) use of oral hypoglycemic drugs; Z79.4 Long term (current) use of insulin; Z79.899 Other long term (current) drug therapy
CPT/HCPCS: 99285 ×2; 96360 ×2; 96361 ×8; 82075; 36415; 93005; 80053; 84443; 85025; 81003; 80306; 80143; 87636; 80179; G0480; 80320

== ENCOUNTER 2023-12-05 09:53 | Emergency (ER) | payer MEDICARE ==
--- NOTE | 2023-12-05 10:16 | ED ---
Abdominal Pain HPI - General Chief Complaint: Abdominal Pain Stated Complaint: Abdominal Pain Time Seen by Provider: 12/05/23 10:05 Source: patient, RN notes reviewed Mode of arrival: wheelchair Limitations: no limitations - History of Present Illness Initial Comments: 53-year-old male presents emergency department chief complaint of abdominal pain. Patient has had worsening abdominal pain over the last 3 to 5 days associated with nausea, vomiting, and diarrhea. the patient states that his pain is most severe in the epigastric region and has a radiating sensation into his back. States that he has been experiencing chest discomfort and palpitations over the last few few days that is nonexertional, episodic, and does not radiate. Patient denies shortness of breath, fevers, hematochezia, hematemesis, dark or tarry stools. Denies history of abdominal surgeries. he states that he has been having a decrease in appetite and has not been hydrating at home. additionally, patient presented to the emergency room on 11/28/2023 in an attempt of active overdose with sleeping medication. Patient was admitted for a few days mental health facility, he states since this time his abdominal pain has worsened. - Related Data Home Medications Medication Instructions Recorded Confirmed Propranolol HCl 80 mg PO DAILY 07/04/21 12/05/23 Rivastigmine Tartrate 1.5 mg PO DAILY 07/04/21 12/05/23 [Rivastigmine] Rivastigmine Tartrate 3 mg PO HS 07/04/21 12/05/23 [Rivastigmine] lisinopriL [Zestril] 2.5 mg PO DAILY 07/04/21 12/05/23 traZODone HCL 150 mg PO HS 07/04/21 12/05/23 metFORMIN HCL 500 mg PO BID 12/06/21 12/05/23 Atorvastatin [Lipitor] 20 mg PO HS 04/16/23 12/05/23 Semaglutide [Rybelsus] 7 mg PO AC-BRKFST 04/16/23 12/05/23 Citalopram Hydrobromide [CeleXA] 30 mg PO DAILY 11/28/23 12/05/23 Glimepiride [Amaryl] 2 mg PO BID 11/28/23 12/05/23 Insulin Glargine,Hum.rec.anlog 10 units SQ HS 11/28/23 12/05/23 [Lantus Solostar Pen] Verapamil HCl [Calan] 120 mg PO HS 11/28/23 12/05/23 Previous Rx's Medication Instructions Recorded Omeprazole [PriLOSEC] 20 mg PO AC-BRKFST #14 cap 12/05/23 Allergies Allergy/AdvReac Type Severity Reaction Status Date / Time No Known Allergies Allergy Verified 12/05/23 11:27 Review of Systems ROS Statement: Those systems with pertinent positive or pertinent negative responses have been documented in the HPI. ROS Other: All systems not noted in ROS Statement are negative. Past Medical History Past Medical History: COPD, Dementia, Diabetes Mellitus, Hyperlipidemia, Hypertension, Memory Impairment, Respiratory Disorder, Sleep Apnea/CPAP/BIPAP, Syncope, Vascular Disorder Additional Past Medical History / Comment(s): chronic migraines, just dx. w/early alzheimer's,hx dizzy spells ( when up on ladders), concussion 05/20/15 from fall, obstructive sleep apnea wears CPAP, Wernicke encephalopathy, History of Any Multi-Drug Resistant Organisms: None Reported Past Surgical History: Tonsillectomy Additional Past Surgical History / Comment(s): Left elbow open reduction internal fixation, hemorrhoidectomy, colonscopy Past Anesthesia/Blood Transfusion Reactions: No Reported Reaction Past Psychological History: Anxiety, Depression Smoking Status: Current every day smoker Past Alcohol Use History: Occasional Past Drug Use History: None Reported, Marijuana - Past Family History Father Additional Family Medical History / Comment(s): Father at age 69 from bladder ca, with history of vasular dementia Mother Family Medical History: Diabetes Mellitus Additional Family Medical History / Comment(s): open heart in her 60s Brother(s) Additional Family Medical History / Comment(s): Patient has 2 brothers that are healthy. He does not have any sisters. General Exam Limitations: no limitations General appearance: in distress (acute distress) Head exam: Present: atraumatic, normocephalic, normal inspection Eye exam: Present: normal appearance, PERRL, EOMI. Absent: scleral icterus, conjunctival injection, periorbital swelling ENT exam: Present: normal exam, mucous membranes moist Neck exam: Present: normal inspection. Absent: tenderness, meningismus, lymphadenopathy Respiratory exam: Present: normal lung sounds bilaterally. Absent: respiratory distress, wheezes, rales, rhonchi, stridor Cardiovascular Exam: Present: regular rate, normal rhythm, normal heart sounds. Absent: systolic murmur, diastolic murmur, rubs, gallop, clicks GI/Abdominal exam: Present: distended, tenderness (diffuse tenderness to light palpation), guarding, hyperactive bowel sounds Extremities exam: Present: normal inspection, full ROM, normal capillary refill. Absent: tenderness, pedal edema, joint swelling, calf tenderness Back exam: Present: normal inspection Neurological exam: Present: alert, oriented X3, CN II-XII intact Psychiatric exam: Present: normal affect, normal mood Skin exam: Present: warm, dry, intact, normal color. Absent: rash Course Vital Signs 12/05/23 12/05/23 12/05/23 10:00 12:13 12:31 Temperature 99.0 F 98.2 F Pulse Rate 95 69 68 Respiratory 20 18 16 Rate Blood Pressure 123/81 121/67 121/67 O2 Sat by Pulse 99 98 98 Oximetry Medical Decision Making - Medical Decision Making Was pt. sent in by a medical professional or institution (, PA, ALIGNING CHECKER, urgent care, hospital, or snf...) When possible be specific @ -No Did you speak to anyone other than the patient for history (EMS, parent, family, police, friend...)? What history was obtained from this source @ -No Did you review nursing and triage notes (agree or disagree)? Why? @ -I reviewed and agree with nursing and triage notes Were old charts reviewed (outside hosp., previous admission, EMS record, old EKG, old radiological studies, urgent care reports/EKG's, snf records)? Report findings @ -No old charts were reviewed Differential Diagnosis (chest pain, altered mental status, abdominal pain women, abdominal pain men, vaginal bleeding, weakness, fever, dyspnea, syncope, headache, dizziness, GI bleed, back pain, seizure, CVA, palpatations, mental health, musculoskeletal)? @ -Differential Abdominal Pain Men: Appendicitis, cholecystitis, diverticulosis, ischemic bowel, pancreatitis, hepatitis, UTI, gastroenteritis, AAA, incarcerated hernia, bowel obstruction, constipation, inflammatory bowel, hepatitis, peptic ulcer disease, splenic infarction, perforated viscus, testicular torsion, this is not meant to be an all-inclusive list EKG interpreted by me (3pts min.). @ -completed at 10:22, sinus rhythm, ventricular rate 84, MI interval 156, QTc 401. No evidence of acute ischemia X-rays interpreted by me (1pt min.). @ -None done CT interpreted by me (1pt min.). @ -CT with contrast of abdomen pelvis no evidence for acute abdominal process U/S interpreted by me (1pt. min.). @ -None done What testing was considered but not performed or refused? (CT, X-rays, U/S, labs)? Why? @ -None What meds were considered but not given or refused? Why? @ -None Did you discuss the management of the patient with other professionals (professionals i.e. , PA, ALIGNING CHECKER, lab, RT, psych nurse, clinical social work aide, financial systems administrator, teacher, chief compliance officer, casework specialist)? Give summary @ -No Was smoking cessation discussed for >3mins.? @ -No Was critical care preformed (if so, how long)? @ -No Were there social determinants of health that impacted care today? How? (Homelessness, low income, unemployed, alcoholism, drug addiction, transportation, low edu. Level, literacy, decrease access to med. care, intermediate, rehab)? @ -No Was there de-escalation of care discussed even if they declined (Discuss DNR or withdrawal of care, Hospice)? DNR status @ -No What co-morbidities impacted this encounter? (DM, HTN, Smoking, COPD, CAD, Cancer, CVA, ARF, Chemo, Hep., AIDS, mental health diagnosis, sleep apnea, morb id obesity)? @ -DM, Was patient admitted / discharged? Hospital course, mention meds given and rout e, prescriptions, significant lab abnormalities, going to OR and other pertinent info. @ -53-year-old male with chief complaint of abdominal pain. Patient given toradol and IV fluid blous states that his symptoms have slightly improved. CT with contrast of abdomen pelvis no evidence for acute abdominal process. CBC no evidence of leukocytosis. CMP Remarkable for CO2 15 and glucose 232. xray KUB shows irregular bowel gas pattern with no evidence for acute intraabdominal process. UA resulting elevated SG, correlates with clinical signs of dehydration. discuss with the patient that his symptoms are likley secondary to gastritis. advise that patient take omeprazole at home and Tums as needed for gastric discomfort. Patient to follow-up with primary care provider within the next 7 days for further evaluation. Undiagnosed new problem with uncertain are likely secondary to gastritis, instruct patient to prognosis? @ -No Drug Therapy requiring intensive monitoring for toxicity (Heparin, Nitro, Insulin, Cardizem)? @ -No Were any procedures done? @ -No Diagnosis/symptom? @ -Abdominal pain, gastritis Acute, or Chronic, or Acute on Chronic? @ -acute Uncomplicated (without systemic symptoms) or Complicated (systemic symptoms)? @ -Uncomplicated Side effects of treatment? @ -No Exacerbation, Progression, or Severe Exacerbation? @ -No Poses a threat to life or bodily function? How? (Chest pain, USA, NH, pneumonia, PE, COPD, DKA, ARF, appy, cholecystitis, CVA, Diverticulitis, Homicidal, Suicidal, threat to staff... and all critical care pts) @ -No - Lab Data Result diagrams: 12/05/23 10:24 12/05/23 10:24 Lab Results 12/05/23 12/05/23 12/05/23 Range/Units 10:24 10:24 10:24 WBC 6.0 (3.8-10.6) k/uL RBC 5.19 (4.30-5.90) m/uL Hgb 16.2 (13.0-17.5) gm/dL Hct 46.2 (39.0-53.0) % MCV 89.1 (80.0-100.0) fL MCH 31.1 (25.0-35.0) pg MCHC 35.0 (31.0-37.0) g/dL RDW 12.8 (11.5-15.5) % Plt Count 159 (150-450) k/uL MPV 8.7 Neutrophils % 76 % Lymphocytes % 14 % Monocytes % 6 % Eosinophils % 2 % Basophils % 1 % Neutrophils # 4.5 (1.3-7.7) k/uL Lymphocytes # 0.9 L (1.0-4.8) k/uL Monocytes # 0.4 (0-1.0) k/uL Eosinophils # 0.1 (0-0.7) k/uL Basophils # 0.0 (0-0.2) k/uL Sodium 136 L (137-145) mmol/L Potassium 4.0 (3.5-5.1) mmol/L Chloride 109 H (98-107) mmol/L Carbon Dioxide 15 L (22-30) mmol/L Anion Gap 12 mmol/L BUN 17 (9-20) mg/dL Creatinine 0.90 (0.66-1.25) mg/dL Est GFR (CKD-EPI)AfAm >90 (>60 ml/min/1.73 sqM) Est GFR (CKD-EPI)NonAf >90 (>60 ml/min/1.73 sqM) Glucose 232 H (74-99) mg/dL Plasma Lactic Acid Dhaval (0.7-2.0) mmol/L Calcium 9.6 (8.4-10.2) mg/dL Total Bilirubin 1.1 (0.2-1.3) mg/dL AST 20 (17-59) U/L ALT 25 (4-49) U/L Alkaline Phosphatase 96 (38-126) U/L Total Protein 6.8 (6.3-8.2) g/dL Albumin 4.2 (3.5-5.0) g/dL Amylase 38 (30-110) U/L Lipase 49 (23-300) U/L Urine Color Yellow Urine Appearance Clear (Clear) Urine pH 6.0 (5.0-8.0) Ur Specific [place] >1.050 H (1.001-1.035) Urine Protein 1+ H (Negative) Urine Glucose (UA) 3+ H (Negative) Urine Ketones Negative (Negative) Urine Blood Negative (Negative) Urine Nitrite Negative (Negative) Urine Bilirubin Negative (Negative) Urine Urobilinogen <2.0 (<2.0) mg/dL Ur Leukocyte Esterase Negative (Negative) Urine WBC 1 (0-5) /hpf Ur Squamous Epith Cells <1 (0-4) /hpf Calcium Oxalate Crystal Few H (None) /hpf Urine Mucus Moderate H (None) /hpf 12/05/23 Range/Units 10:24 WBC (3.8-10.6) k/uL RBC (4.30-5.90) m/uL Hgb (13.0-17.5) gm/dL Hct (39.0-53.0) % MCV (80.0-100.0) fL MCH (25.0-35.0) pg MCHC (31.0-37.0) g/dL RDW (11.5-15.5) % Plt Count (150-450) k/uL MPV Neutrophils % % Lymphocytes % % Monocytes % % Eosinophils % % Basophils % % Neutrophils # (1.3-7.7) k/uL Lymphocytes # (1.0-4.8) k/uL Monocytes # (0-1.0) k/uL Eosinophils # (0-0.7) k/uL Basophils # (0-0.2) k/uL Sodium (137-145) mmol/L Potassium (3.5-5.1) mmol/L Chloride (98-107) mmol/L Carbon Dioxide (22-30) mmol/L Anion Gap mmol/L BUN (9-20) mg/dL Creatinine (0.66-1.25) mg/dL Est GFR (CKD-EPI)AfAm (>60 ml/min/1.73 sqM) Est GFR (CKD-EPI)NonAf (>60 ml/min/1.73 sqM) Glucose (74-99) mg/dL Plasma Lactic Acid Dhaval 1.4 (0.7-2.0) mmol/L Calcium (8.4-10.2) mg/dL Total Bilirubin (0.2-1.3) mg/dL AST (17-59) U/L ALT (4-49) U/L Alkaline Phosphatase (38-126) U/L Total Protein (6.3-8.2) g/dL Albumin (3.5-5.0) g/dL Amylase (30-110) U/L Lipase (23-300) U/L Urine Color Urine Appearance (Clear) Urine pH (5.0-8.0) Ur Specific [place] (1.001-1.035) Urine Protein (Negative) Urine Glucose (UA) (Negative) Urine Ketones (Negative) Urine Blood (Negative) Urine Nitrite (Negative) Urine Bilirubin (Negative) Urine Urobilinogen (<2.0) mg/dL Ur Leukocyte Esterase (Negative) Urine WBC (0-5) /hpf Ur Squamous Epith Cells (0-4) /hpf Calcium Oxalate Crystal (None) /hpf Urine Mucus (None) /hpf Disposition Clinical Impression: Gastroenteritis, Gastritis Narrative: Please return to the Emergency Department if symptoms worsen or any other concerns. Advise patient to discontinue use of of Motrin/ibuprofen at home. use of antacids, Tums to alleviate symptoms, prescription of omeprazole 20 mg every day. Disposition: HOME SELF-CARE Condition: Good Instructions (If sedation given, give patient instructions): Gastritis (ED) Prescriptions: Omeprazole [PriLOSEC] 20 mg PO AC-BRKFST #14 cap Is patient prescribed a controlled substance at d/c from ED?: No Referrals: Francis Turner [Primary Care Provider] - 1-2 days Time of Disposition: 14:15
[2023-12-05] MEDS: KETOROLAC 15 MG/ML 1 ML VIAL IVP STA ×2 (10:42→12:28)
[2023-12-05] MEDS: METOCLOPRAMIDE 5 MG/ML 2 ML VIAL IVP STA (10:43)
[2023-12-05] MEDS: SODIUM CHLORIDE 0.9% 1,000 ML IV STA (10:45)
[2023-12-05 10:52] LABS: ALT 25 U/L (4-49); AST 20 U/L (17-59); African American GFR (CKD) >90 (>60 ml/min/1.73 sqM); Albumin 4.2 g/dL (3.5-5.0); Alkaline Phosphatase 96 U/L (38-126); Amylase 38 U/L (30-110); Anion Gap 12 mmol/L; Basophils % (A) 1 %; Blood Urea Nitrogen 17 mg/dL (9-20); Calcium 9.6 mg/dL (8.4-10.2); Carbon Dioxide 15 mmol/L (22-30); Chloride 109 mmol/L (98-107); Eosinophils # (A) 0.1 k/uL (0-0.7); Eosinophils % (A) 2 %; Glucose 232 mg/dL (74-99); HCT 46.2 % (39.0-53.0); HGB 16.2 gm/dL (13.0-17.5); Lipase 49 U/L (23-300); Lymphocytes # (A) 0.9 k/uL (1.0-4.8); Lymphocytes % (A) 14 %; MCH 31.1 pg (25.0-35.0); MCV 89.1 fL (80.0-100.0); Mean Platelet Volume 8.7; Monocytes # (A) 0.4 k/uL (0-1.0); Monocytes % (A) 6 %; Neutrophils # (A) 4.5 k/uL (1.3-7.7); Neutrophils % (A) 76 %; Non-African American GFR(CKD) >90 (>60 ml/min/1.73 sqM); Platelet Count 159 k/uL (150-450); RBC 5.19 m/uL (4.30-5.90); RDW 12.8 % (11.5-15.5); Sodium 136 mmol/L (137-145); Total Bilirubin 1.1 mg/dL (0.2-1.3); Total Protein 6.8 g/dL (6.3-8.2)
--- NOTE | 2023-12-05 11:37 | CT ---
EXAMINATION TYPE: CT abdomen pelvis w con CT DLP: 2135.1 mGycm, Automated exposure control for dose reduction was used. DATE OF EXAM: 12/05/2023 11:08 AM COMPARISON: Radiograph same day CLINICAL INDICATION:Male, 53 years old with history of abdominal pain; Upper abdominal pain, chest pa in, headache x 4 days. TECHNIQUE: Axial CT abdomen pelvis w con;Sagittal and coronal reformats were created on a separate w orkstation. Contrast used:100 mL of Isovue 370 with IV Contrast, (none if empty) Oral contrast used: without Oral Contrast (none if empty) FINDINGS: LOWER CHEST: Unremarkable ABDOMEN LIVER: Unremarkable GALLBLADDER AND BILE DUCTS: Unremarkable. PANCREAS: Unremarkable. SPLEEN: Unremarkable. ADRENAL GLANDS: Unremarkable. KIDNEYS AND URETERS: No evidence of hydronephrosis or renal calculus. The ureters are unremarkable. PELVIS BLADDER: Unremarkable REPRODUCTIVE: Unremarkable. ABDOMEN & PELVIS STOMACH AND BOWEL: No evidence of bowel obstruction. PERITONEUM/RETROPERITONEUM: No evidence of pneumoperitoneum or free fluid. VASCULATURE: No evidence of aortic aneurysm. MUSCULOSKELETAL: No acute osseous abnormalities LYMPH NODES: No gross evidence for lymphadenopathy. SOFT TISSUE/ABDOMINAL WALL: Fat-containing umbilical hernia. Fatty changes to the inguinal canals wit h tiny fat filled left inguinal hernia suggested IMPRESSION: No evidence for acute abdominal process.
[2023-12-05 11:52] LABS: Appearance,Urine Clear (Clear); Bilirubin,Urine Negative (Negative); Blood,Urine Negative (Negative); Calcium Oxalate Crystals,Urine Few /hpf; Color,Urine Yellow; Glucose,Urine (UA) 3+ (Negative); Ketones,Urine Negative (Negative); Leukocyte Esterase,Urine Negative (Negative); Mucus,Urine Moderate /hpf; Nitrite,Urine Negative (Negative); Protein,Urine 1+ (Negative); Squamous Epithelial Cell,Urine <1 /hpf (0-4); Urobilinogen,Urine <2.0 mg/dL (<2.0); WBC,Urine 1 /hpf (0-5)
--- NOTE | 2023-12-05 11:53 | XR ---
EXAMINATION TYPE: XR KUB DATE OF EXAM: 12/05/2023 10:53 AM CLINICAL INDICATION:Male, 53 years old with history of abdominal pain; [facility] COMPARISON: CT abdomen same day. TECHNIQUE: One radiographic view of the abdomen was obtained. FINDINGS: The bowel gas pattern is nonspecific without dilated loops of small or large bowel. There i s no evidence for organomegaly or pneumoperitoneum. The osseous structures are intact. No abnormal calcifications are present. Fecal material and gas are demonstrated throughout the colon and rectum. IMPRESSION: Nonspecific bowel gas pattern without radiographic evidence for acute process.
[2023-12-05 12:06] LABS: Specific Gravity,Urine >1.050 (1.001-1.035)
[2023-12-05 12:19] VITALS: BP 121/67
[2023-12-05 12:54] VITALS: PULSE 68; RESP 16; TEMP 98.2
== END 2023-12-05 12:51 | disposition home or self-care (01) ==
LOC: EC 09:53
DX: K29.70 Gastritis, unspecified, without bleeding (principal); K52.9 Noninfective gastroenteritis and colitis, unspecified; F17.200 Nicotine dependence, unspecified, uncomplicated; F12.90 Cannabis use, unspecified, uncomplicated
CPT/HCPCS: 36415; 93005; 80053; 82150; 83605; 83690; 85025; 81001; 74018; 74177; 99285; 96374; 96375; 96376; 96361; J2765; J1885; Q9967

== ENCOUNTER → 2024-01-03 | Outpatient (CLI) | payer MEDICARE | END | disposition home or self-care (01) | LOC: LABWHC1 07:54 | PROVIDERS: ATTEND Family Medicine | DX: E11.9 Type 2 diabetes mellitus without complications (principal) | CPT/HCPCS: 36415; 83036 ==

== ENCOUNTER 2024-03-31 09:52 | Emergency (ER) | payer MEDICARE ==
[2024-03-31 09:56] VITALS: TEMP 98.2
[2024-03-31] MEDS: ASPIRIN 81 MG PO STA (10:33)
[2024-03-31] MEDS: DEXAMETHASONE SOD PHOSPHATE 10 MG/ML 1 ML VIAL IVP STA (10:34)
[2024-03-31] MEDS: KETOROLAC 15 MG/ML 1 ML VIAL IVP STA ×2 (10:34→13:24)
[2024-03-31] MEDS: METOCLOPRAMIDE 5 MG/ML 2 ML VIAL IVP STA (10:36)
[2024-03-31] MEDS: diphenhydrAMINE 50 MG/ML 1 ML VIAL IVP STA (10:36)
[2024-03-31] MEDS: SODIUM CHLORIDE 0.9% 1,000 ML IV STA (10:37)
[2024-03-31 10:41] LABS: INR 0.9 (<1.2); Partial Thromboplastin Time 22.1 sec (22.0-30.0); Prothrombin Time 10.3 sec (10.0-12.5)
--- NOTE | 2024-03-31 10:43 | XR ---
EXAMINATION TYPE: XR chest 2V DATE OF EXAM: 03/31/2024 10:38 AM COMPARISON: Chest radiographs from 07/04/2021 TECHNIQUE: XR chest 2V Frontal and lateral views of the chest. CLINICAL INDICATION:Male, 53 years old with history of Chest Pain; FINDINGS: Lungs/Pleura: There is no evidence of pleural effusion, focal consolidation, or pneumothorax. Pulmonary vascularity: Unremarkable. Heart/mediastinum: Cardiomediastinal silhouette is unremarkable. Musculoskeletal: No acute osseous pathology. IMPRESSION: No acute cardiopulmonary disease/process.
--- NOTE | 2024-03-31 10:44 | ED ---
Chest Pain HPI - General Chief Complaint: Chest Pain Stated Complaint: headache,chest pain Time Seen by Provider: 03/31/24 09:59 Source: patient, RN notes reviewed Mode of arrival: ambulatory Limitations: no limitations - History of Present Illness Initial Comments: This is a 53-year-old male who presents to the emergency department for a headache and chest pain. Patient has a history of migraines, most recently about a month ago. States that he started to develop a migraine last night and he was unable to get it to go away with Tylenol. Reports associated light sensitivity and nausea. The headache seemed to come out of nowhere when it did occur, and he is also describing this as somewhat of a thunderclap headache. Reports that this may almost be the worst headache of his life as well. Additionally, about an hour prior to arrival he started to develop centralized chest pressure. Denies any shortness of breath. Denies any radiation of pain. Denies any history of heart attacks. He has had chest pressure before but is unsure what caused it. Reports having a normal stress test a few months ago. MD Complaint: chest pain - Related Data Home Medications Medication Instructions Recorded Confirmed Propranolol HCl 80 mg PO DAILY 07/04/21 03/31/24 Rivastigmine Tartrate 1.5 mg PO DAILY 07/04/21 03/31/24 [Rivastigmine] Rivastigmine Tartrate 3 mg PO HS 07/04/21 03/31/24 [Rivastigmine] lisinopriL [Zestril] 2.5 mg PO DAILY 07/04/21 03/31/24 traZODone HCL 150 mg PO HS 07/04/21 03/31/24 metFORMIN HCL 500 mg PO BID 12/06/21 03/31/24 Atorvastatin [Lipitor] 10 mg PO HS 04/16/23 03/31/24 Semaglutide [Rybelsus] 7 mg PO DAILY 04/16/23 03/31/24 Citalopram Hydrobromide [CeleXA] 30 mg PO DAILY 11/28/23 03/31/24 Glimepiride [Amaryl] 2 mg PO BID 11/28/23 03/31/24 Insulin Glargine,Hum.rec.anlog 10 units SQ HS 11/28/23 03/31/24 [Lantus Solostar Pen] Verapamil HCl [Calan] 120 mg PO HS 11/28/23 03/31/24 Aspirin EC [Ecotrin Low Dose] 81 mg PO DAILY 03/31/24 03/31/24 [place]-3/Dha/Epa/Fish Oil [Fish Oil 1 cap PO DAILY 03/31/24 03/31/24 1,000 mg Softgel] Pioglitazone [Actos] 30 mg PO DAILY 03/31/24 03/31/24 Previous Rx's Medication Instructions Recorded Ketorolac [Toradol] 10 mg PO Q6HR PRN #15 tab 03/31/24 Ondansetron Odt [Zofran Odt] 4 mg PO Q8HR PRN #15 tab 03/31/24 Allergies Allergy/AdvReac Type Severity Reaction Status Date / Time No Known Allergies Allergy Verified 03/31/24 11:49 Review of Systems ROS Statement: Those systems with pertinent positive or pertinent negative responses have been documented in the HPI. ROS Other: All systems not noted in ROS Statement are negative. Past Medical History Past Medical History: COPD, Dementia, Diabetes Mellitus, Hyperlipidemia, Hypertension, Memory Impairment, Respiratory Disorder, Sleep Apnea/CPAP/BIPAP, Syncope, Vascular Disorder Additional Past Medical History / Comment(s): chronic migraines, just dx. w/early alzheimer's,hx dizzy spells ( when up on ladders), concussion 05/20/15 from fall, obstructive sleep apnea wears CPAP, Wernicke encephalopathy, History of Any Multi-Drug Resistant Organisms: None Reported Past Surgical History: Orthopedic Surgery, Tonsillectomy Additional Past Surgical History / Comment(s): Left elbow open reduction internal fixation, hemorrhoidectomy, colonscopy Past Anesthesia/Blood Transfusion Reactions: No Reported Reaction Past Psychological History: Anxiety, Depression Smoking Status: Current every day smoker Past Alcohol Use History: Occasional Past Drug Use History: None Reported - Past Family History Father Additional Family Medical History / Comment(s): Father at age 69 from bladder ca, with history of vasular dementia Mother Family Medical History: Diabetes Mellitus Additional Family Medical History / Comment(s): open heart in her 60s Brother(s) Additional Family Medical History / Comment(s): Patient has 2 brothers that are healthy. He does not have any sisters. General Exam Limitations: no limitations General appearance: alert, in no apparent distress Head exam: Present: atraumatic, normocephalic, normal inspection Eye exam: Present: normal appearance, PERRL, EOMI. Absent: scleral icterus, conjunctival injection, periorbital swelling Respiratory exam: Present: normal lung sounds bilaterally. Absent: respiratory distress, wheezes, rales, rhonchi, stridor Cardiovascular Exam: Present: regular rate, normal rhythm, normal heart sounds. Absent: systolic murmur, diastolic murmur, rubs, gallop, clicks Neurological exam: Present: alert, oriented X3, CN II-XII intact Psychiatric exam: Present: normal affect, normal mood Skin exam: Present: warm, dry, intact, normal color. Absent: rash Course Vital Signs 03/31/24 03/31/24 09:53 14:34 Temperature 98.2 F Pulse Rate 67 75 Respiratory 18 16 Rate Blood Pressure 151/75 128/75 O2 Sat by Pulse 99 99 Oximetry Chest Pain MDM - MDM This is a 53 year old male who presents to the emergency department for headaches and chest pain. Was pt. sent in by a medical professional or institution? @ -No Did you speak to anyone other than the patient for history? @ -No Did you review nursing and triage notes? @ -Yes, and I agree, it is accurate with regards to the patient's symptoms. Were old charts reviewed? @ -No Differential Diagnosis? @ -Differential Headache: Migraine, tension, cluster, carbon monoxide, central venous thrombosis, pension karma temporal arteritis, acute closure glaucoma, intercranial hemorrhage, m astoiditis, sinusitis, head injury, this is not meant to be an all-inclusive list. -Differential Chest Pain: Stable Angina, Unstable Angina, STEMI, NSTEMI Aortic Dissection, Pneumothorax, Musculoskeletal, Esophageal Spasm GERD, Cholecystitis, Pancreatitis, Zoster, this is not meant to be an all-inclusive list. EKG interpreted by me (3pts min.)? @ -EKG interpreted by me demonstrating the following:Sinus rhythm. Ventricular rate 60 bpm, IN interval 153 ms, QRS duration 100 ms, QTc 408 ms. X-rays interpreted by me (1pt min.)? @ -Chest x-ray obtained, my interpretation identifies no localized consolidations or infiltrates. CT interpreted by me (1pt min.)? @ -CT scan of the brain obtained. My interpretation identifies no evidence of an acute intracranial hemorrhage or mass effect. CTA of the head and neck obtained. My interpretation identifies no evidence of an aneurysm. U/S interpreted by me (1pt. min.)? @ -Not obtained What testing was considered but not performed? (CT, X-rays, U/S, labs)? Why? @ -None What meds were considered but not given? Why? @ -Nitroglycerin for the chest pressure, however due to the patient's migraine he declined. Did you discuss the management of the patient with other professionals? @ -No Did you reconcile home meds? @ -No Was smoking cessation discussed for >3mins.? @ -No Was critical care preformed (if so, how long)? @ -No Were there social determinants of health that impacted care today? How? (Homelessness, low income, unemployed, alcoholism, drug addiction, transpor tation, low edu. Level, literacy, decrease access to med. care, [facility], rehab)? @ -No Was there de-escalation of care discussed even if they declined? (Discuss DNR or withdrawal of care, Hospice)? @ -No What co-morbidities impacted this encounter? (DM, HTN, Smoking, COPD, CAD, Cancer, CVA, Hep., AIDS, mental health diagnosis, sleep apnea, morbid obesity)? @ -Migraines, DM, HTN, COPD Was patient admitted / discharged? @ -Lab work unremarkable. First troponin negative. Chest x-ray reveals no acute process. Given the reported thunderclap sensation and not experiencing a migraine like this before, CT scan of the brain and CTA of the head and neck were obtained. This revealed no acute process. He was initially treated with a migraine cocktail consisting of IV fluids, Toradol, Decadron, Reglan, and Benadryl. He had some improvement in pain, but was still uncomfortable. Nitroglycerin was avoided for the chest pain per the patient's request due to the headache. I did recommend admission for the chest pain to have a cardiac consultation. Patient however declined admission and requested discharge home. He was in agreement with repeat troponin. This was repeated at the 3-hour ralf and remained negative. I again encouraged the patient to stay for admission with regards to the chest pain however he continued to refuse. Both the headache and chest pain essentially resolved while in the emergency department. Toradol and Zofran prescribed in the event he has any additional migraines. Otannie chand advised follow-up with his PCP and he was given very strict return parameters. Undiagnosed new problem with uncertain prognosis? @ -None Drug Therapy requiring intensive monitoring for toxicity (Heparin, Nitro, Insulin, Cardizem)? @ -None Were any procedures done? @ -None Diagnosis/symptom? @ -Headache, chest pain Acute, or Chronic, or Acute on Chronic? @ -Acute Uncomplicated (without systemic symptoms) or Complicated (systemic symptoms)? @ -Uncomplicated Side effects of treatment? @ -None Exacerbation, Progression, or Severe Exacerbation] @ -Not applicable Poses a threat to life or bodily function? @ -This will depend on the cause of both the headache and chest pain. This case was discussed in detail with the attending ED physician, Dr. Graham. Pr esentation, findings, and treatment plan discussed in detail as well. Disposition Clinical Impression: Headache, Chest pain Disposition: HOME SELF-CARE Instructions (If sedation given, give patient instructions): Chest Pain (ED), Acute Headache (ED) Additional Instructions: Return to the emergency department with any new, worsening, or concerning symptoms. Take the Toradol with Tylenol as needed for pain relief. If you choose to take the Toradol, do not take any other anti-inflammatories such as ibuprofen, take one or the other. You can take the Zofran up to every 8 hours as needed for nausea and vomiting. Follow up with your primary care provider in 1-2 days. Prescriptions: Ketorolac [Toradol] 10 mg PO Q6HR PRN #15 tab PRN Reason: Pain Ondansetron Odt [Zofran Odt] 4 mg PO Q8HR PRN #15 tab PRN Reason: Nausea And Vomiting Is patient prescribed a controlled substance at d/c from ED?: No Referrals: Francis Turner [Primary Care Provider] - 1-2 days Time of Disposition: 14:27
[2024-03-31 10:47] LABS: Basophils % (A) 1 %; Eosinophils # (A) 0.2 k/uL (0-0.7); Eosinophils % (A) 3 %; HCT 42.3 % (39.0-53.0); HGB 14.8 gm/dL (13.0-17.5); Lymphocytes % (A) 29 %; MCH 30.8 pg (25.0-35.0); MCHC 34.9 g/dL (31.0-37.0); MCV 88.3 fL (80.0-100.0); Mean Platelet Volume 8.7; Monocytes # (A) 0.5 k/uL (0-1.0); Monocytes % (A) 7 %; Neutrophils # (A) 4.2 k/uL (1.3-7.7); Neutrophils % (A) 59 %; Platelet Count 187 k/uL (150-450); RBC 4.79 m/uL (4.30-5.90); RDW 13.8 % (11.5-15.5); WBC 7.1 k/uL (3.8-10.6)
[2024-03-31 10:51] LABS: ALT 23 U/L (4-49); AST 22 U/L (17-59); African American GFR (CKD) >90 (>60 ml/min/1.73 sqM); Albumin 4.1 g/dL (3.5-5.0); Alkaline Phosphatase 72 U/L (38-126); Anion Gap 7 mmol/L; Blood Urea Nitrogen 17 mg/dL (9-20); Calcium 9.4 mg/dL (8.4-10.2); Carbon Dioxide 25 mmol/L (22-30); Chloride 104 mmol/L (98-107); Glucose 198 mg/dL (74-99); Magnesium 1.6 mg/dL (1.6-2.3); Non-African American GFR(CKD) >90 (>60 ml/min/1.73 sqM); Potassium 4.4 mmol/L (3.5-5.1); Sodium 136 mmol/L (137-145); Total Bilirubin 0.8 mg/dL (0.2-1.3); Total Protein 6.4 g/dL (6.3-8.2)
--- NOTE | 2024-03-31 12:19 | CT ---
EXAMINATION TYPE: CT brain wo con CT DLP: 1231.6 mGycm, Automated exposure control for dose reduction was used. DATE OF EXAM: 03/31/2024 12:09 PM COMPARISON: MRI brain 07/15/2018. CLINICAL INDICATION:Male, 53 years old with history of Thunderclap headache, Thunderclap headache TECHNIQUE: Brain: Multiple axial CT images of the brain were obtained without IV contrast. . Coronal and sagitta l reformats reviewed. FINDINGS: Brain: Extra-axial spaces: No abnormal extra-axial fluid collections. Ventricular system: Within normal limits Cerebral parenchyma: No acute intraparenchymal hemorrhage or mass effect. The hernandez-white junction is well differentiated. Cerebellum: Unremarkable. Mass effect: No evidence of midline shift. Intracranial vasculature: Atherosclerotic calcifications of the intracranial vessels. Soft tissues: Normal. Calvarium/osseous structures: No depressed skull fracture. Paranasal sinuses and mastoid air cells: Mild scattered paranasal sinus disease. Visualized orbits: Orbital contents are intact. IMPRESSION: No acute intracranial process.
--- NOTE | 2024-03-31 12:27 | CT ---
EXAMINATION TYPE: CT angio head neck CT DLP: 1306.2 mGycm, Automated exposure control for dose reduction was used. DATE OF EXAM: 03/31/2024 12:16 PM COMPARISON: CT brain 03/31/2024. CLINICAL INDICATION:Male, 53 years old with history of Thunderclap headache; PHH, Thunderclap headach e TECHNIQUE: Axially acquired helical CT angiogram of the head and neck was obtained with contrast util izing 75 cc of [id number]-[id number] administered intravenously. Axial images are supplemented with 3D reconstru ctions which were post-processed at an independent workstation. NASCET criteria used. FINDINGS: CTA HEAD: No evidence of acute intracranial hemorrhage, mass effect, or midline shift. The ventricles, sulci, a nd cisterns are unremarkable. The visualized portions of the internal carotid arteries, middle cerebral arteries, anterior cerebral arteries, and posterior cerebral arteries are patent. 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 The basilar and vertebral arteries are patent. CTA NECK: Right Carotid System: The common carotid artery and external carotid artery are patent. The carotid bifurcation demonstrate s no evidence of hemodynamically significant stenosis. The remaining portions of the internal carotid artery demonstrate normal size without significant narrowing. Left Carotid System: The common carotid artery and external carotid artery are patent. The carotid bifurcation demonstrate s no evidence of hemodynamically significant stenosis. The remaining portions of the internal carotid artery demonstrate normal size without significant narrowing. Vertebral arteries are patent without evidence hemodynamically significant stenosis. There is a three-vessel aortic arch. The origins of the great vessels are patent. No evidence of hemo dynamically significant stenosis. IMPRESSION: 1. No evidence of dissection of the cervical internal carotid arteries or vertebral arteries or any e vidence of significant stenosis at the carotid bifurcations. 2. No evidence of high-grade stenosis or intracranial aneurysm.
[2024-03-31] MEDS: MORPHINE SULFATE 4 MG/ML SYRINGE IVP STA (12:34)
[2024-03-31] MEDS: BUTALB/APAP/CAFF 50-325-40MG TAB PO STA (13:41)
[2024-03-31 14:37] VITALS: BP 128/75; PULSE 75; RESP 16
== END 2024-03-31 14:47 | disposition home or self-care (01) ==
LOC: EC 09:52
DX: R07.89 Other chest pain (principal); G43.909 Migraine, unspecified, not intractable, without status migrainosus; E11.9 Type 2 diabetes mellitus without complications; I10 Essential (primary) hypertension; J44.9 Chronic obstructive pulmonary disease, unspecified; F17.200 Nicotine dependence, unspecified, uncomplicated; Z79.84 Long term (current) use of oral hypoglycemic drugs; Z79.4 Long term (current) use of insulin; Z79.899 Other long term (current) drug therapy
CPT/HCPCS: 36415; 93005; 80053; 83735; 84484; 85025; 85610; 85730; 71046; 70496; 70450; 70498; 99285; 96374; 96375 ×4; 96376; 96361; J2270; J1200; J1100; J2765; J1885; Q9967